=== PATIENT | male | born 1930 | race Caucasian/White ===

== ENCOUNTER 2016-04-21 14:23 | Inpatient (IN) | payer OTHER ==
--- NOTE | 2016-04-21 14:19 | EDPHY ---
H & P Time Seen by Provider: 04/21/16 14:27 HPI/ROS: CHIEF COMPLAINT: Weakness HISTORY OF PRESENT ILLNESS: Patient arrives by EMS with tachycardia and fever and weakness. Symptoms present for the last 4 days and severe today. He was in bed all day today and he could not get up. He has no other complaints except for some mild dizziness and lightheadedness. Denies leg pain or skin rash or fever or chest pain or coughing or headache. REVIEW OF SYSTEMS: Eye: no change in vision ENT: no sore throat Cardiac: no chest pain or syncope Pulmonary: no cough or SOB Abdomen: no vomiting, diarrhea, abdominal pain Musculoskeletal: no back pain or neck pain Skin: no rash Neuro: no headache Constitutional: no fever : no urinary symptoms A comprehensive 10 point review of systems is otherwise negative aside from elements mentioned in the history of present illness. PAST MEDICAL HISTORY: History and physical dated 12/27/2015 personally reviewed by myself. Includes pneumonia, atrial fibrillation, diabetes, bladder cancer, hypertension. Kidney stones, prostate cancer. Social history: Nonsmoker, lives independently. General Appearance: Alert and conversant, cooperative. Eyes: No scleral icterus. ENT, Mouth: Normal mucous membranes. Respiratory: Rhonchi at both bases but speaks in full sentences. Cardiovascular: Irregularly irregular and tachycardic. Gastrointestinal: Abdomen is soft and non tender. Neurological: Alert and oriented x3. Normally conversant. Face symmetric, normal movement and sensation in all extremities. Skin: Patient has redness warmth and tenderness to palpation of the right lower leg from the knee down to the ankle. He has a grade 1 sacral decubitus without evidence of cellulitis or fluctuance or lymphangitis. Musculoskeletal: Some swelling and tenderness of the right lower extremity. Compartments are soft. Psychiatric: Not agitated. Emergency Department course/MDM: Patient presents tachycardic with temperature 37.6degrees but a history of fever at home to 102 or 103 concerning for sepsis. Chest x-ray reviewed is negative. White blood cell count less than 12,000 and greater than 4000. Lactate less than 2. Does not have a fever in the emergency department. However he is tachycardic from atrial fibrillation. Plan for normal saline IV 2 L, vancomycin 1 g IV and ultrasound of the right leg. Likely source would be right leg cellulitis at this time. 1540: Discussed with family. He says he is 179 lb or 80 kilos. 3 L IV normal saline bolus ordered and 2nd lactate. Call is placed to Dr. Ramos his primary care physician. Will try giving IV fluids 1st for bringing down his rate, if that does not work rate control can be tried after he becomes euvolemic. Constitutional: Initial Vital Signs Temperature (C) 37.6 C 04/21/16 14:51 Heart Rate 139 H 04/21/16 14:51 Respiratory Rate 20 04/21/16 14:51 Blood Pressure 112/72 04/21/16 14:51 O2 Sat (%) 91 L 04/21/16 14:51 O2 Delivery Mode Room Air Allergies/Adverse Reactions: No Allergies [NKDA] Allergy (Verified 02/14/15 13:30) Home Medications: Medication Instructions Recorded Allopurinol [Allopurinol 300 MG 300 mg PO DAILY 02/14/15 (RX)] Cholecalciferol Vit D3 [Vitamin D3 5,000 units PO BID 02/14/15 (*)] Niacin ER [Niaspan 1000 mg (*)] 1,000 mg PO HS 02/14/15 Hubbard-3 Ethyl Est-Lovaza [Lovaza 1 2 gm PO BID 02/14/15 gm (*)] Pioglitazone HCl [Actos 15mg (*)] 15 mg PO DAILY 02/14/15 metFORMIN HCL [Glucophage 500 mg 500 mg PO BIDMEAL 02/14/15 (*)] Insulin Detemir [Levemir Flextouch] 40 unit SQ DAILY 02/15/15 Herbals/Supplements -Info Only 1 ea PO DAILY 06/21/15 Aspirin EC [Aspirin EC 81 mg (*)] 81 mg PO HS 04/21/16 Metoprolol Tartrate [Lopressor 25 25 mg PO BID 04/21/16 mg (*)] Rivaroxaban [Xarelto 15mg (*)] 15 mg PO HS 04/21/16 Vit C/Dl-E AC/Lut/Copper/Znox 1 each PO BID 04/21/16 [Preservision Softgel] Medical Decision Making - Diagnostics EKG Interpretation: 12-lead EKG interpreted by me; official reading is in trace master. My interpretation is atrial fibrillation rate 139, nonspecific T-wave flattening. Imaging: Chest x-ray viewed independently by myself at 3:00 p.m. shows no pneumonia. Ultrasound right leg negative for DVT per Dr. Dietz, reviewed by myself personally at 3:44 p.m. Differential Diagnosis: Differential for fever and weakness considered including but not limited to sepsis, pneumonia, a UTI, cellulitis. Consult/Admit Bed Type: Dr. Puentes for [place] [id number] - Data Points Laboratory Results: Laboratory Results 04/21/16 14:49 04/21/16 14:49 04/21/16 04/21/16 14:49 11:45 WBC 10.61 H 10^3/uL (3.80-9.50) RBC 5.15 10^6/uL (4.40-6.38) Hgb 15.8 g/dL (13.7-17.5) Hct 44.2 % (40.0-51.0) MCV 85.8 fL (81.5-99.8) MCH 30.7 pg (27.9-34.1) MCHC 35.7 g/dL (32.4-36.7) RDW 14.1 % (11.5-15.2) Plt Count 212 10^3/uL (150-400) MPV 10.1 fL (8.7-11.7) Neut % (Auto) 81.6 H % (39.3-74.2) Lymph % (Auto) 10.9 L % (15.0-45.0) White % (Auto) 6.5 % (4.5-13.0) Eos % (Auto) 0.0 L % (0.6-7.6) Baso % (Auto) 0.4 % (0.3-1.7) Nucleat RBC Rel Count 0.0 % (0.0-0.2) Absolute Neuts (auto) 8.66 H 10^3/uL (1.70-6.50) Absolute Lymphs (auto) 1.16 10^3/uL (1.00-3.00) Absolute Monos (auto) 0.69 10^3/uL (0.30-0.80) Absolute Eos (auto) 0.00 L 10^3/uL (0.03-0.40) Absolute Basos (auto) 0.04 10^3/uL (0.02-0.10) Absolute Nucleated RBC 0.00 10^3/uL (0-0.01) Immature Gran % 0.6 % (0.0-1.1) Immature Gran # 0.06 10^3/uL (0.00-0.10) PT 16.7 H SEC (12.0-15.0) INR 1.35 H (0.83-1.16) APTT 33.2 SEC (23.0-38.0) VBG Lactic Acid 1.6 mmol/L (0.7-2.1) Sodium 130 L mEq/L (134-144) Potassium 4.2 mEq/L (3.5-5.2) Chloride 97 mEq/L (97-110) Carbon Dioxide 22 mEq/l (22-31) Anion Gap 11 mEq/L (8-16) BUN 20 mg/dL (7-23) Creatinine 0.7 mg/dL (0.7-1.3) Estimated GFR > 60 Glucose 198 H mg/dL (70-100) Calcium 9.6 mg/dL (8.5-10.4) Total Bilirubin 0.9 mg/dL (0.1-1.4) Medications Given: Discontinued Medications Vancomycin/Sodium Chloride (Vancomycin 1 Gm (Premix)) 250 mls @ 250 mls/hr IV EDNOW ONE PRN Reason: Protocol Stop: 04/21/16 16:33 Last Admin: 04/21/16 16:26 Dose: 250 mls Sodium Chloride (Ns) 1,000 mls @ 0 mls/hr IV ONCE ONE PRN Reason: Wide Open Stop: 04/21/16 15:36 Last Admin: 04/21/16 16:20 Dose: 1,000 mls Sodium Chloride (Ns) 1,000 mls @ 0 mls/hr IV ONCE ONE PRN Reason: Wide Open Stop: 04/21/16 15:36 Last Admin: 04/21/16 16:20 Dose: 1,000 mls Sodium Chloride (Ns) 1,000 mls @ 0 mls/hr IV ONCE ONE PRN Reason: Wide Open Stop: 04/21/16 15:40 Last Admin: 04/21/16 16:21 Dose: 1,000 mls Departure - Departure Disposition: [facility] Acute Clinical Impression: Cellulitis of right leg, Atrial fibrillation and flutter Condition: Serious
[2016-04-21 14:56] LABS: % IMMATURE GRANULYOCYTES 0.6 % (0.0-1.1); ABSOLUTE IMMATURE GRANULOCYTES 0.06 10^3/uL (0.00-0.10); ADD DIFF? NO; ADD MORPH? NO; ADD SCAN? NO; ATYPICAL LYMPHOCYTE FLAG 0 (0-99); FRAGMENT RBC FLAG 0 (0-99); HEMATOCRIT 44.2 % (40.0-51.0); HEMOGLOBIN 15.8 g/dL (13.7-17.5); LEFT SHIFT FLG 0 (0-99); LIPEMIA HEMOLYSIS FLAG 90 (0-99); MEAN CELL HEMOGLOBIN 30.7 pg (27.9-34.1); MEAN CELL HEMOGLOBIN CONCENTR. 35.7 g/dL (32.4-36.7); MEAN CELL VOLUME 85.8 fL (81.5-99.8); MEAN PLATELET VOLUME 10.1 fL (8.7-11.7); PLATELET CLUMPS FLAG 0 (0-99); PLATELET COUNT 212 10^3/uL (150-400); RED BLOOD CELL COUNT 5.15 10^6/uL (4.40-6.38); RED CELL DISTRIBUTION WIDTH 14.1 % (11.5-15.2)
[2016-04-21 15:05] LABS: INR 1.35 (0.83-1.16); PROTIME(PATIENT) 16.7 SEC (12.0-15.0)
[2016-04-21 15:06] LABS: APTT 33.2 SEC (23.0-38.0)
--- NOTE | 2016-04-21 15:25 | CPEKG ---
Heart Rate: 139 RR Interval: 432 QRSD Interval: 90 QT Interval: 336 QTC Interval: 511 QRS Colstrip: 76 T Wave Colstrip: -33 EKG Severity - ABNORMAL ECG - EKG Impression: ATRIAL FIBRILLATION EKG Impression: BORDERLINE INFERIOR Q WAVES EKG Impression: BORDERLINE T ABNORMALITIES, INFERIOR LEADS EKG Impression: PROLONGED QT INTERVAL Electronically Signed By: Howie Rios 21-Apr-2016 15:41:00
[2016-04-21 15:28] LABS: ANION GAP 11 mEq/L (8-16); BILIRUBIN,TOTAL 0.9 mg/dL (0.1-1.4); CALCIUM 9.6 mg/dL (8.5-10.4); CARBON DIOXIDE 22 mEq/l (22-31); CHLORIDE 97 mEq/L (97-110); CREATININE 0.7 mg/dL (0.7-1.3); GLOMERULAR FILTRATION RATE > 60; GLUCOSE 198 mg/dL (70-100); POTASSIUM 4.2 mEq/L (3.5-5.2); SODIUM 130 mEq/L (134-144)
[2016-04-21] MEDS ORDERED: VANCOMYCIN HCL/NORMAL SALINE 250 ML IV ONE (15:34)
[2016-04-21] MEDS ORDERED: NS 1,000 ML IV ONE ×3 (15:35→15:39)
--- NOTE | 2016-04-21 15:41 | DX ---
PA and Lateral Chest 14:26 p.m. Indication: Weakness for several days. Patient meets sepsis criteria. Comparison: 2 view chest dated December 29, 2015 Findings: Mild hyperinflation and diffuse peribronchial thickening is improved since December 2015. No superimposed airspace consolidation, edema, mass, or effusion. The heart size is borderline enlarged similar to the prior study. Impression: Clear lungs. No pneumonia or acute process.
--- NOTE | 2016-04-21 15:45 | US ---
Right Lower Extremity Deep Venous Duplex Ultrasound 14:57 p.m. Indication: Right leg pain and swelling Technique: The right lower extremity deep venous system and veins of the proximal calf were interroga laurent with grayscale, color, and spectral Doppler imaging. Findings: The common femoral, femoral, popliteal, greater saphenous and posterior tibial and peroneal veins of the calf normally compress on grayscale imaging. The deep venous system and superficial vei ns of the proximal calf have normal flow and expected variability. No fluid collection Impression: Negative. No deep venous thrombosis. Comment: I relayed these results to to Dr. Howie Rios at 15:45 p.m. April 21, 2016.
--- NOTE | 2016-04-21 18:08 | SOAPPROG ---
SOAP Progress Note Assessment/Plan: Assessment: Plan: 04/21/16 18:13 Cellulitis: suspect he does have an early cellulitis in the upper groin. He has received one dose vancomycin. Given hx of fever, chills, will continue this for now. Atrial fibrillation with RVR: has hx of becoming tachycardic when ill. He is regularly on metoprolol 25mg bid at home, but rate is not currently controlled. He has seen Dr. Michael in the past, so will have cardiology consult. For now, will increase metoprolol to 50mg bid and monitor closely. He is currently anticoagulated with Xarelto. His weakness is his primary symptom. DM2: on metformin, actos, levemir, so will continue these. CAD: stable, asymptomatic Hx recurrent UTI: awaiting UA. Most recent UA earlier this month was negative. Pt states he doesn't usually have dysuria. Hx E. coli, Enterococcus in previous cultures. 04/21/16 18:33 Subjective: 86 yo male with hx multiple medical problems including DM, intermittent atrial fib/flutter, CAD, recurrent UTIs has felt intermittently poorly over the last few days. Today, he was not able to get out of bed due to weakness, and was noted at home to have temp to 102-103. Has had chills intermittently as well. A couple of days ago, he noted some discomfort in his upper R thigh and some mild redness. Due to weakness, he was brought to the ER by ambulance. In the ED, CXR was normal. He was noted to be in rapid atrial fibrillation, with a rate in the 130s-140s. O2 saturations good, and he was afebrile. WBC was mildly elevated with L shift. RLE doppler negative for DVT. He was given vancomycin 1g IV for presumed cellulitis. Currently he is comfortable, without SOB, but is weak, needing assistance simply to reposition himself in bed. Objective: Vital Signs Temp Pulse Resp BP Pulse Ox 37.8 C 127 H 20 130/82 H 94 04/21/16 17:00 04/21/16 17:06 04/21/16 17:06 04/21/16 17:06 04/21/16 17:06 04/20/16 04/21/16 04/22/16 05:59 05:59 05:59 Intake Total 3650 Balance 3650 PT 16.7 SEC (12.0-15.0) H 04/21/16 14:49 INR 1.35 (0.83-1.16) H 04/21/16 14:49 General: awake, alert, NAD. Well-appearing. HEENT: NC/AT. Multiple painless scabbed lesions on forehead. O/P without lesions. Neck: no masses, adenopathy Lungs: clear bilaterally Cardiovascular: irregularly irregular, tachycardic Abdomen: +bowel sounds, soft, NT. No hepatosplenomegaly, masses Extremities: no clubbing, cyanosis, edema. RLE with mild erythema below the knee , not new per patient. In R groin, there is mild erythema with slight warmth, but no edema, tenderness. Neurologic: alert, oriented, moving all extremities, normal speech, cognition ICD10 Worksheet Patient Problems: Problems Problem Status Diagnosed Atrial fibrillation and flutter Acute Cellulitis of right leg Acute Pneumonia Acute UTI (urinary tract infection) Acute Epididymitis Acute Orchitis Acute Pneumonia due to aerobic bacteria Acute
[2016-04-21] MEDS ORDERED: ACETAMINOPHEN 325 MG TAB PO PRN (18:52)
[2016-04-21] MEDS ORDERED: ONDANSETRON 4 MG/2 ML VIAL IVP PRN (18:52)
[2016-04-21] MEDS ORDERED: POLYETHYLENE GLYCOL 3350 17 GM PKT PO PRN (18:52)
[2016-04-21] MEDS ORDERED: ONDANSETRON DISINTEGRATING 4 MG TAB PO PRN (18:52)
[2016-04-21] MEDS ORDERED: MAGNESIUM HYDROXIDE 30 ML UDCUP PO PRN (18:52)
[2016-04-21] MEDS ORDERED: LACTULOSE 20 GM/30 ML UDCUP PO PRN (18:52)
[2016-04-21] MEDS ORDERED: BISACODYL 10 MG SUPP PR PRN (18:52)
--- NOTE | 2016-04-21 19:49 | GHP ---
[f rep st] HISTORY AND PHYSICAL DATE OF ADMISSION: 04/21/2016 HISTORY OF PRESENT ILLNESS: The patient is an 86-year-old male with a history of diabetes mellitus, coronary artery disease, intermittent atrial fibrillation/ flutter, on chronic anticoagulation, and recurrent UTI, who noted the onset of chills about 3-4 days ago. He spent that entire day in bed. Since then, his symptoms have fluctuated some, but about 2 days ago, he began to notice some discomfort in his upper right leg in the groin area. Last night he went out to dinner with his family, and his daughter noticed that he did not seem quite himself. Then today, he spent most of the day in bed feeling very weak and without any strength. At home, his temperature was noted to be 102 to 103. He had been hospitalized with pneumonia a few months previously, but has not had any significant cough or shortness of breath. He has not had any sore throat or head congestion. Appetite has been off, and he has lost about 10 pounds over the last 3 months. He has not had any abdominal pain, nausea, vomiting, diarrhea or constipation, and no dysuria. Due to weakness, he was brought to the emergency department via ambulance. In the emergency department, he was afebrile. His heart rate was elevated in the 130s-140s, with an EKG showing rapid atrial fibrillation. He had no chest pain just weakness. His white count was mildly elevated with a left shift. Chest x-ray was negative for pneumonia. Right lower extremity Doppler was negative for DVT. Urinalysis is pending. CMP normal except for Na 130 and glucose 198. Mild erythema of the right groin was noted on exam, and the patient was given vancomycin 1 g IV for presumed cellulitis. Blood cx are pending. He was also aggressively hydrated, and admitted for further evaluation. PAST MEDICAL HISTORY: Significant for type 2 diabetes, bladder cancer, osteoarthritis, kidney stones, melanoma, right lower extremity venous stasis, atrial fibrillation/flutter, coronary artery disease, with elevated coronary calcium, prostate cancer, small aortic aneurysm in the abdominal aorta, recurrent UTI, testicular hypofunction. MEDICATIONS: Xarelto 15 mg daily, Actos 15 mg daily, allopurinol 300 mg daily, aspirin 81 mg daily, Levemir FlexPen 100 units/mL 40 units in morning, Lovaza 1 g 2 capsules b.i.d., metformin 500 mg b.i.d., Niaspan 1000 mg daily, vitamin D 5000 international units daily, Welchol 3.75 g with water once daily, Tylenol p.r.n., Milk of Magnesia 400 mg/5 mL 4 times daily as needed, tramadol 50 mg q.6h as needed, testosterone 300mg IM q3 weeks. ALLERGIES: No known allergies. PAST SURGICAL HISTORY: Melanoma removal. SOCIAL HISTORY: The patient is with grown children. He is a former smoker. FAMILY HISTORY: His father from bladder cancer. His brother from melanoma. His mother from stomach cancer. PHYSICAL EXAMINATION: VITAL SIGNS: Blood pressure 130/82, heart rate 127, respiratory rate 20, O2 saturation 94% on room air. Temperature 37.8. GENERAL: He is awake, alert, in no acute distress. He is well appearing, pleasant, conversant. HEENT: Normocephalic, atraumatic. He has multiple painless scabbed lesions on his forehead. PERRL, EOMI. Sclerae anicteric. Oropharynx is without lesions. NECK: Without masses or adenopathy. LUNGS: Clear bilaterally. CARDIOVASCULAR: Irregularly irregular rhythm, tachycardic. ABDOMEN: Normal bowel sounds. Soft and nontender. No hepatosplenomegaly or masses. EXTREMITIES: No clubbing, cyanosis or edema. Right lower extremity with mild erythema below the knee, not new per patient. In the right groin, there is mild erythema with slight warmth, but no edema or tenderness. NEUROLOGIC: Alert and oriented. Moving all extremities. Normal speech and cognition. LABS: WBC 10.61, 81.6% neutrophils, hgb 15.8, hct 44.2, platelets 212. Na 130, K + 4.2, Cl 97, CO2 22, BUN 20, Creatinine 0.7, glucose 198, Ca 9.6, total bilirubin 0.9, PT 16.7, INR 1.35, PTT 33.2 ASSESSMENT AND PLAN: 1. Cellulitis. I suspect that he does have an early cellulitis in the upper right groin. He has received one dose of vancomycin. Given the history of fever and chills, we will continue this for now. Blood cultures pending. 2. Atrial fibrillation, with rapid ventricular rate. He has a history of becoming tachycardic when ill. He is regularly on metoprolol 25 mg b.i.d. at home, but his rate is not currently controlled. He has seen Dr. Michael in the past, so we will ask Cardiology to consult for now. We will increase his metoprolol to 50 mg b.i.d., and monitor closely. Historically, when he feels better, he does return to sinus rhythm. He is currently anticoagulated with Xarelto. He has no chest pain. Weakness is typically his primary symptom of atrial fibrillation. 3. Weakness: most likely related to rapid atrial fibrillation, but will have PT , OT see pt. 4. Diabetes mellitus. We will continue metformin, Actos and Levemir. 5. Coronary artery disease, stable, asymptomatic. 6. History of recurrent urinary tract infection. UA is currently pending. Will await result prior to adding further antibiotic coverage. His most recent UA earlier this month was negative. He does state, however, that he does not usually have dysuria when he has a urinary tract infection. He has a history of E. coli and Enterococcus with previous cultures. 7. Hyponatremia: mild. Has been aggressively hydrated. Will check lab in am 8. DVT prophylaxis: on Xarelto. /[id number]/MODL MTDD
[2016-04-21] MEDS: METOPROLOL TARTRATE 50 MG TAB PO SCH (20:03)
[2016-04-21] MEDS: PRESERVISION AREDS2 FORMULA EYE VIT 1 EACH PO SCH (20:03)
[2016-04-21] MEDS: OMEGA-3 ETHYL EST-LOVAZA 1 GM CAP PO SCH (20:04)
[2016-04-21] MEDS: CHOLECALCIFEROL VIT D3 1,000 UNITS TAB PO SCH (20:04)
[2016-04-21] MEDS: NIACIN ER 1000 MG TAB.ER PO SCH (20:05)
[2016-04-21] MEDS: SENNOSIDES/DOCUSATE SODIUM TAB PO SCH (20:05)
[2016-04-21] MEDS ORDERED: RIVAROXABAN 15 MG TAB PO SCH (21:00)
[2016-04-21] MEDS ORDERED: ASPIRIN EC 81 MG TAB PO SCH (21:00)
[2016-04-21] MEDS ORDERED: NON-FORMULARY NEW DRUG (Vit C/Dl-E Ac/Lut/Copper/Znox [Preservision Softgel] 1 EACH) PO SCH (21:00)
[2016-04-22] MEDS ORDERED: DILTIAZEM 125 MG in D5W 125 ML IV SCH (00:30)
[2016-04-22 00:57] LABS: COLOR AMBER; LEUKOCYTE ESTERASE,URINE 3+ (NEGATIVE); NITRITE,URINE NEGATIVE (NEGATIVE)
[2016-04-22 01:04] LABS: BACTERIA 3+ /hpf (NONE SEEN); MUCUS 2+ /lpf (NONE-1+); RBC,URINE 50-182 /hpf (0-3); WBC,URINE 50-182 /hpf (0-3); YEAST PRESENT /hpf (NONE SEEN)
[2016-04-22] MEDS ORDERED: VANCOMYCIN 1 GM in NS 250 ML IV SCH (04:00)
[2016-04-22 04:49] LABS: % IMMATURE GRANULYOCYTES 0.5 % (0.0-1.1); ABSOLUTE IMMATURE GRANULOCYTES 0.06 10^3/uL (0.00-0.10); ADD DIFF? NO; ADD MORPH? NO; ADD SCAN? NO; ATYPICAL LYMPHOCYTE FLAG 0 (0-99); FRAGMENT RBC FLAG 0 (0-99); HEMATOCRIT 37.7 % (40.0-51.0); HEMOGLOBIN 13.1 g/dL (13.7-17.5); LEFT SHIFT FLG 0 (0-99); LIPEMIA HEMOLYSIS FLAG 90 (0-99); MEAN CELL HEMOGLOBIN 30.3 pg (27.9-34.1); MEAN CELL HEMOGLOBIN CONCENTR. 34.7 g/dL (32.4-36.7); MEAN CELL VOLUME 87.3 fL (81.5-99.8); MEAN PLATELET VOLUME 10.2 fL (8.7-11.7); PLATELET CLUMPS FLAG 10 (0-99); PLATELET COUNT 167 10^3/uL (150-400); RED BLOOD CELL COUNT 4.32 10^6/uL (4.40-6.38); RED CELL DISTRIBUTION WIDTH 14.4 % (11.5-15.2)
[2016-04-22 04:54] LABS: ANION GAP 9 mEq/L (8-16); CALCIUM 8.5 mg/dL (8.5-10.4); CARBON DIOXIDE 21 mEq/l (22-31); CHLORIDE 102 mEq/L (97-110); CREATININE 0.6 mg/dL (0.7-1.3); GLOMERULAR FILTRATION RATE > 60; GLUCOSE 200 mg/dL (70-100); POTASSIUM 3.5 mEq/L (3.5-5.2); SODIUM 132 mEq/L (134-144)
[2016-04-22] MEDS: metFORMIN HCL 500 MG TAB PO SCH ×2 (08:58→18:39)
[2016-04-22] MEDS: SENNOSIDES/DOCUSATE SODIUM TAB PO SCH ×2 (08:58→20:39)
[2016-04-22] MEDS: PRESERVISION AREDS2 FORMULA EYE VIT 1 EACH PO SCH ×2 (08:58→20:37)
[2016-04-22] MEDS: OMEGA-3 ETHYL EST-LOVAZA 1 GM CAP PO SCH ×2 (08:58→20:36)
[2016-04-22] MEDS: CHOLECALCIFEROL VIT D3 1,000 UNITS TAB PO SCH ×2 (08:58→20:38)
[2016-04-22] MEDS: METOPROLOL TARTRATE 50 MG TAB PO SCH ×2 (08:58→20:38)
[2016-04-22] MEDS: PIOGLITAZONE HCL 15 MG TAB PO SCH (08:59)
[2016-04-22] MEDS: ALLOPURINOL 300 MG TAB PO SCH (08:59)
[2016-04-22] MEDS ORDERED: Herbals/Supplements -Info Only PO SCH (09:00)
[2016-04-22] MEDS ORDERED: NON-FORMULARY NEW DRUG (Insulin Detemir [Levemir Flextouch] 40 UNIT) SQ SCH (09:00)
[2016-04-22] MEDS: Levemir Flextouch SQ SCH (11:28)
--- NOTE | 2016-04-22 12:07 | SOAPPROG ---
[facility] Progress Note Assessment/Plan: Assessment: Plan: 04/21/16 18:13 Cellulitis: suspect he does have an early cellulitis in the upper groin. He has received one dose vancomycin. Given hx of fever, chills, will continue this for now. Atrial fibrillation with RVR: has hx of becoming tachycardic when ill. He is regularly on metoprolol 25mg bid at home, but rate is not currently controlled. He has seen Dr. Michael in the past, so will have cardiology consult. For now, will increase metoprolol to 50mg bid and monitor closely. He is currently anticoagulated with Xarelto. His weakness is his primary symptom. DM2: on metformin, actos, levemir, so will continue these. CAD: stable, asymptomatic Hx recurrent UTI: awaiting UA. Most recent UA earlier this month was negative. Pt states he doesn't usually have dysuria. Hx E. coli, Enterococcus in previous cultures. 04/21/16 18:33 04/22/16 12:10 Cellulitis: not much change. WBC up, but this could be related to UTI. Will change antibx to include coverage for UTI. Blood cx pending. Atrial fibrillation with RVR: Rate now controlled. BP a little low this am, but is weaning off diltiazem. Will see how he does on metoprolol 50mg bid. Hopefully he will convert to sinus on his own. UTI: UA positive, and may be the primary source of infection, more so than skin. No further fever, but faint chill last night. Will switch to Unasyn, given hx of E. coli and Enterococcus in urine, and cellulitis. Urine cx pending. DVT prophylaxis: on Xarelto Hyponatremia: some improvement this morning 04/22/16 12:11 04/22/16 12:19 Subjective: Feeling better this morning. Placed on diltiazem gtt last night after not responding to metoprolol 50mg orally. Rate is now controlled but he remains in atrial fibrillation. Strength improved. Appreciate cardiology input. Still notes some discomfort in his upper R leg, mainly if he crosses his legs. He hasn 't noted much change in redness. UA obtained last night and urine doesn't look great. Note that his WBC is up today. No further fevers, though did feel a small chill last night. Objective: Vital Signs Temp Pulse Resp BP Pulse Ox 36.6 C 73 18 116/72 93 04/22/16 11:38 04/22/16 11:38 04/22/16 11:38 04/22/16 11:38 04/22/16 11:38 Laboratory Results 04/22/16 03:45 04/22/16 03:45 04/21/16 04/22/16 04/23/16 05:59 05:59 05:59 Intake Total 7250 Balance 7250 PT 16.7 SEC (12.0-15.0) H 04/21/16 14:49 INR 1.35 (0.83-1.16) H 04/21/16 14:49 General: sitting up in chair, alert, NAD Neck: no masses, adenopathy Lungs: clear CV: irregularly irregular, rate controlled, no murmur Abdomen: soft, NT Extremities: mild LE edema. Skin: erythema of upper R thigh remains mild. No significant change. No tenderness, edema. ICD10 Worksheet Patient Problems: Problems Problem Status Diagnosed Atrial fibrillation and flutter Acute Cellulitis of right leg Acute Pneumonia Acute UTI (urinary tract infection) Acute Epididymitis Acute Orchitis Acute Pneumonia due to aerobic bacteria Acute
--- NOTE | 2016-04-22 12:20 | GCON ---
[f rep st] CONSULTATION CARDIOLOGY CONSULTATION DATE OF CONSULTATION: 04/22/2016 REFERRING PHYSICIAN: Rossy Puentes MD INDICATIONS: Paroxysmal atrial fibrillation. HISTORY OF PRESENT ILLNESS: The patient is a pleasant 86-year-old male, who is known to our service from previous admissions. His cardiovascular history is characterized by nonobstructive coronary art kaykay disease. Apparently in the past, he had been seen by Dr. Michael. At 1 point, the patient recal ls having had a cardiac catheterization. He was told that everything was "okay" and that he did not require placement of any stents. Additionally, he has a history of paroxysmal atrial fibrillation an d flutter, and has had several admissions in the past with these arrhythmias, typically associated wi th some form of systemic illness, most recently pneumonia during a hospitalization December of 2015. Per my review of the records, he has not required a cardioversion in the past. Typically, he reverts to sinus rhythm spontaneously. As an outpatient, he has been managed with metoprolol tartrate 25 mg twice daily, as well as Xarelto 15 mg daily. Additionally, he has a history of diabetes. He is admitted through the emergency department after arriving by ambulance. He states for the last 2-3 days, he has felt "sick" associated with a sensation of chills and rigors at home. This has been accompanied by severe fatigue. He has spent the last several days in bed and has been extraordinari ly weak. He specifically denies significant headache, cough, sputum production, abdominal pain, diar suzanna, nausea, vomiting, and flank pain. He also notes no dysuria. He does have a history of frequen t urinary tract infections in the past. On arrival to the emergency department here, he was hemodyna mically stable however, had an elevated heart rate at 139 beats per minute. His initial electrocardi ogram demonstrated atrial fibrillation with a rapid ventricular response with a resting heart rate of 139, and nonspecific ST and T changes. It was thought on physical examination that he might have a cellulitis in his right thigh therefore, he was treated with vancomycin and given aggressive hydratio n. Overnight, his heart rate was controlled with an increase in his dose of metoprolol, as well as t he addition of low-dose of diltiazem. Today, he states he feels much better. He feels stronger. He has not had any further sensations of rigors. On telemetry, his heart rate has improved substantial ly. Currently, his resting heart rate in atrial fibrillation is in the 90s. PAST MEDICAL HISTORY: 1. Type 2 diabetes mellitus. 2. History of bladder cancer. 3. Osteoarthritis. 4. Kidney stones. 5. History of melanoma of the head and neck with multiple previous Mohs surgeries. 6. History of right lower extremity venous stasis. 7. PAF/flutter. 8. History of nonobstructive coronary disease. 9. History of prostate cancer. 10. Small abdominal aortic aneurysm. 11. Recurrent urinary tract infections. 12. Testicular hypofunction. MEDICATIONS ON ADMISSION: His home medications include herbal supplements, multivitamins, Xarelto 15 mg with evening meal, metoprolol tartrate 25 mg twice daily, low-dose aspirin 81 mg daily, allopurin ol 300 mg daily, Levemir FlexTouch 40 units subcu daily, vitamin D3 at 5000 units b.i.d., Actos 50 mg daily, [place]-3 fatty acids 2 g twice daily, extended-release niacin 1000 mg before bed, metformin 50 0 mg p.o. b.i.d. ALLERGIES: None. SURGICAL HISTORY: Multiple scalp Mohs surgeries. SOCIAL HISTORY: He is and accompanied by his . They have grown children. His daughter is with him today. He is a retired banker. He used to smoke. He has 1 drink daily. He and his wif e live independently. He does not exercise regularly. FAMILY HISTORY: Negative for vascular disease and arrhythmias. REVIEW OF SYSTEMS: With the exception of the above positives, a full 10-point review of systems was performed and is otherwise negative. PHYSICAL EXAMINATION: VITAL SIGNS: Currently, his blood pressure is 99/55, his heart rate is 98, re spiratory rate is 19, oxygen saturations on room air are 93%. GENERAL: He is a healthy 86-year-old male, in no acute distress. HEENT: Multiple eschars are noted on his scalp. NECK: He has no jugul ar venous distention. No carotid bruits. No adenopathy is noted. RESPIRATORY: He speaks in full s entences, using no accessary muscles. On auscultation, he has clear lung anna bilaterally. CARDIA C: Precordial inspection is unremarkable. Nondisplaced PMI. On auscultation, he has an irregularly irregular rhythm. He has no murmurs, gallops, or rubs. ABDOMEN: Soft with no masses or hepatosple nomegaly. He has a nonpalpable aorta. EXTREMITIES: He has warm and well perfused lower extremities. He has trace edema in his right lower extremity. There is a small area of erythema and warmth by h is right groin involving the right thigh. VASCULATURE: He has 2+ radial and dorsal pedal pulses. N EUROLOGIC: He is alert and oriented, moves all 4 limbs spontaneously. He has a pleasant affect. DATA REVIEWED: His electrocardiogram demonstrates atrial fibrillation at 139 beats per minute with n onspecific ST and T changes. Chest x-ray was normal. White blood cell count today is 13.01 up from 10.61 yesterday, hematocrit 37.7, platelet count 167,000. Sodium 132, potassium 3.5, chloride 102, b icarbonate 21, BUN 26, creatinine 0.6, glucose 800. Calcium 8.5. INR 1.35. Urinalysis is positive f or red blood cells and white blood cells described as turbid with positive leukocyte esterase. Urine culture currently pending. Blood cultures are pending. Lower extremity ultrasound was negative for DVT. IMPRESSION: 1. Probable bacteremia: He presents with symptoms of chills and rigors over the last several days. This is associated with objective findings of leukocytosis and an abnormal urinalysis. Additionally , he has an area of erythema in his proximal right thigh, which could be an area of cellulitis. He h ad been treated with vancomycin last night and has shown improvement. Urine cultures and blood cultu res are currently pending. 2. History of paroxysmal atrial fibrillation: He presents now with a recurrence associated with rap id ventricular response. He is asymptomatic. Because of his age, diabetes, and coronary disease, tim sykes has an elevated [id number] score of at least 3, probably 4. As such, he is currently receiving s ystemic anticoagulation with Xarelto. His creatinine clearance is certainly high enough that a full- dose of Xarelto 20 mg daily would be indicated. He has not had any significant bleeding with this me dication. His heart rates have improved with an increase in his metoprolol dose. He is currently on low-dose diltiazem. 3. Coronary artery disease: History of nonobstructive coronary artery disease. This currently quie scent. 4. Possible cellulitis in his right thigh. 5. Possible urinary tract infection. 6. Type 2 diabetes mellitus. 7. Hyponatremia. RECOMMENDATIONS: 1. I would like to wean his diltiazem. I would like to however, continue his metoprolol for heart r ate control. In light of his systemic illness, I think we should allow a little bit of tachycardia. Certainly, heart rates up into the low 1-teens and 120s are acceptable in this setting. 2. I would like to stop his Xarelto. Instead, I would like him to take apixaban 5 mg twice daily. I think this has a more favorable bleeding profile. He is in agreement. I wrote for this to start t his evening. 3. I have written to stop his aspirin. I do not think this is indicated at the present time. 4. I spoke with Dr. Puentes regarding my plans. She is in the process of managing his infectious and other medical problems. Will follow along with you. /[id number]/MODL
[2016-04-22] MEDS: AMPICILLIN/SULBACTAM 1.5 GM in NS 50 ML IV SCH ×3 (14:59→23:41)
[2016-04-22] MEDS: NIACIN ER 1000 MG TAB.ER PO SCH (20:37)
[2016-04-22] MEDS: APIXABAN 5 MG TAB PO SCH (20:38)
[2016-04-22 22:52] LABS: HEMOGLOBIN A1C 9.6 % (4.0-6.0)
[2016-04-23 05:25] LABS: % IMMATURE GRANULYOCYTES 0.5 % (0.0-1.1); ABSOLUTE IMMATURE GRANULOCYTES 0.07 10^3/uL (0.00-0.10); ADD DIFF? NO; ADD MORPH? NO; ADD SCAN? NO; ATYPICAL LYMPHOCYTE FLAG 0 (0-99); FRAGMENT RBC FLAG 0 (0-99); HEMOGLOBIN 14.2 g/dL (13.7-17.5); LEFT SHIFT FLG 0 (0-99); LIPEMIA HEMOLYSIS FLAG 90 (0-99); MEAN CELL HEMOGLOBIN 30.6 pg (27.9-34.1); MEAN CELL HEMOGLOBIN CONCENTR. 35.5 g/dL (32.4-36.7); MEAN CELL VOLUME 86.2 fL (81.5-99.8); MEAN PLATELET VOLUME 9.9 fL (8.7-11.7); PLATELET CLUMPS FLAG 0 (0-99); PLATELET COUNT 184 10^3/uL (150-400); RED BLOOD CELL COUNT 4.64 10^6/uL (4.40-6.38); RED CELL DISTRIBUTION WIDTH 14.3 % (11.5-15.2)
[2016-04-23] MEDS: AMPICILLIN/SULBACTAM 1.5 GM in NS 50 ML IV SCH ×4 (05:42→23:24)
[2016-04-23 05:53] LABS: ANION GAP 7 mEq/L (8-16); CALCIUM 9.3 mg/dL (8.5-10.4); CARBON DIOXIDE 23 mEq/l (22-31); CHLORIDE 106 mEq/L (97-110); CREATININE 0.6 mg/dL (0.7-1.3); GLOMERULAR FILTRATION RATE > 60; GLUCOSE 60 mg/dL (70-100); POTASSIUM 3.4 mEq/L (3.5-5.2); SODIUM 136 mEq/L (134-144)
--- NOTE | 2016-04-23 08:54 | CPEKG ---
Heart Rate: 131 RR Interval: 458 QRSD Interval: 88 QT Interval: 328 QTC Interval: 485 QRS [place]: 75 T Wave [place]: 12 EKG Severity - ABNORMAL ECG - EKG Impression: ATRIAL FIBRILLATION, V-RATE 107-156 EKG Impression: ST DEPRESSION, PROBABLY RATE RELATED EKG Impression: BORDERLINE PROLONGED QT INTERVAL Electronically Signed By: Lio Craven 23-Apr-2016 10:44:02
--- NOTE | 2016-04-23 08:54 | SOAPPROG ---
SOAP Progress Note Assessment/Plan: Assessment: UTI. A-fib with rapid vent response. Cardiology consult in place. Plan: Add cipro for broader coverage until sensitivities are available. Defer to cardiology for rhythm management. 04/23/16 08:53 Subjective: Feeling some better. Still weak. Objective: Vital Signs Temp Pulse Resp BP Pulse Ox 36.5 C 107 H 17 109/86 H 96 04/23/16 07:57 04/23/16 07:57 04/23/16 07:57 04/23/16 07:57 04/23/16 07:57 Laboratory Results 04/23/16 04:24 04/23/16 04:24 04/22/16 04/23/16 04/24/16 05:59 05:59 05:59 Intake Total 7250 500 120 Balance 7250 500 120 PT 16.7 SEC (12.0-15.0) H 04/21/16 14:49 INR 1.35 (0.83-1.16) H 04/21/16 14:49 Went back into a-fib with rapid vent response last night. Lugs clear COR Rapid rhythm. a-fib. No significant edema. WBC still elevated. ICD10 Worksheet Patient Problems: Problems Problem Status Diagnosed Atrial fibrillation and flutter Acute Cellulitis of right leg Acute Pneumonia Acute UTI (urinary tract infection) Acute Epididymitis Acute Orchitis Acute Pneumonia due to aerobic bacteria Acute
[2016-04-23] MEDS ORDERED: AMOXICILLIN/CLAVULANATE POT 875/125 MG TAB PO SCH (09:00)
[2016-04-23] MEDS: PIOGLITAZONE HCL 15 MG TAB PO SCH (09:46)
[2016-04-23] MEDS: PRESERVISION AREDS2 FORMULA EYE VIT 1 EACH PO SCH ×2 (09:46→20:17)
[2016-04-23] MEDS: CHOLECALCIFEROL VIT D3 1,000 UNITS TAB PO SCH ×2 (09:46→20:12)
[2016-04-23] MEDS: metFORMIN HCL 500 MG TAB PO SCH ×2 (09:47→17:37)
[2016-04-23] MEDS: APIXABAN 5 MG TAB PO SCH ×2 (09:47→20:22)
[2016-04-23] MEDS: OMEGA-3 ETHYL EST-LOVAZA 1 GM CAP PO SCH ×2 (09:47→20:16)
[2016-04-23] MEDS: METOPROLOL TARTRATE 50 MG TAB PO SCH ×2 (09:47→20:16)
[2016-04-23] MEDS: Levemir Flextouch SQ SCH (09:48)
[2016-04-23] MEDS: ALLOPURINOL 300 MG TAB PO SCH (09:48)
[2016-04-23] MEDS: SENNOSIDES/DOCUSATE SODIUM TAB PO SCH ×2 (09:53→20:12)
[2016-04-23] MEDS: CIPROFLOXACIN 500 MG TAB PO SCH ×2 (11:57→20:16)
--- NOTE | 2016-04-23 12:06 | PDCARPN ---
Cardiology Progress Note Chief Complaint: N\A Assessment/Plan: Assessment: Pt has a history of nonobstructive CAD per patient and PAF/PAFL. His arrhythmias typically occur in the setting of another illness and he typically converts spontaneously. He was admitted with fatigue, chills, and rigors and was found to have a UTI. He was also in atrial fibrillation with RVR. His Metoprolol was increased and he was started on a dilt drip. The dilt was d/c yesterday but he has remained on a increased dose of Metoprolol. Plan: 1. a.fib with RVR in the setting of UTI and possible bacteremia. He is currently asymptomatic and being treated with rate control and anticoagulation. His rates were elevated this morning but improved after his AM dose of Metoprolol which was given at 10AM today. His heart rate is currently running 90-110. Continue Metoprolol 50 BID and Eliquis 5 BID. He is hypokalemic and will replace his potassium. IF he does not convert on his own consider WILBERT CV. He was on low dose Xarelto on admission and therefore would need a WILBERT with the CV. 2. RLE edema- Possible cellulitis of the right groin. I doubt a PE given he was on Xarelto prior to admission. 04/23/16 12:06 Subjective: Pt denies any further chills or fatigue. He denies any palpitations, presyncope or syncope. Objective: Vital Signs (8 Hrs) Temp Pulse Resp BP Pulse Ox 04/23/16 11:07 36.5 C 101 H 17 125/71 H 91 L 04/23/16 07:57 36.5 C 107 H 17 109/86 H 96 04/23/16 04:00 36.6 C 110 H 18 145/90 H 98 Intake/Output (24 Hrs) 04/22/16 04/23/16 04/24/16 05:59 05:59 05:59 Intake Total 7250 500 570 Balance 7250 500 570 Intake: Oral (ml) 750 500 570 IV Infused (ml) 6500 Vancomycin HCl/Normal 250 Saline 250 ml @ 250 mls/ hr IV EDNOW ONE Rx#: [id number] Ns 1,000 ml @ Wide Open 3000 IV ONCE ONE Rx#: [id number] Other: Weight 81.193 kg Intake Quantity Yes Yes Sufficient Number of Voids Incontinence 2 3 2 Number of Stools Incontinence 1 tele- a.fib rate controlled. Result Diagrams: 04/23/16 04:24 04/23/16 04:24 - Physical Exam Constitutional: WDWN Cardiovascular: irregularly irregular, other (edema of RLE) Peripheral Pulses: 2+: dorsalis-pedis (R), dorsalis-pedis (L) Respiratory: clear to auscultate bilat ICD10 Worksheet Patient Problems: Problems Problem Status Diagnosed Atrial fibrillation and flutter Acute Cellulitis of right leg Acute Pneumonia Acute UTI (urinary tract infection) Acute Epididymitis Acute Orchitis Acute Pneumonia due to aerobic bacteria Acute
[2016-04-23] MEDS ORDERED: PROTOCOL POTASSIUM 1 DOSE MISC PRN (12:50)
[2016-04-23] MEDS ORDERED: POTASSIUM CL 10 MEQ TAB PO ONE (13:13)
[2016-04-23 19:44] LABS: POTASSIUM 3.3 mEq/L (3.5-5.2)
[2016-04-23] MEDS: NIACIN ER 1000 MG TAB.ER PO SCH (20:12)
[2016-04-24] MEDS ORDERED: POTASSIUM CL 10 MEQ TAB PO ONE ×3 (01:12→21:41)
[2016-04-24 05:50] LABS: POTASSIUM 3.8 mEq/L (3.5-5.2)
[2016-04-24] MEDS: AMPICILLIN/SULBACTAM 1.5 GM in NS 50 ML IV SCH ×2 (05:57→13:00)
[2016-04-24] MEDS: CHOLECALCIFEROL VIT D3 1,000 UNITS TAB PO SCH ×2 (09:03→21:55)
[2016-04-24] MEDS: PIOGLITAZONE HCL 15 MG TAB PO SCH (09:03)
[2016-04-24] MEDS: OMEGA-3 ETHYL EST-LOVAZA 1 GM CAP PO SCH ×2 (09:04→21:36)
[2016-04-24] MEDS: APIXABAN 5 MG TAB PO SCH ×2 (09:04→21:38)
[2016-04-24] MEDS: CIPROFLOXACIN 500 MG TAB PO SCH (09:04)
[2016-04-24] MEDS: METOPROLOL TARTRATE 50 MG TAB PO SCH ×2 (09:04→21:35)
[2016-04-24] MEDS: ALLOPURINOL 300 MG TAB PO SCH (09:04)
[2016-04-24] MEDS: PRESERVISION AREDS2 FORMULA EYE VIT 1 EACH PO SCH ×2 (09:04→21:37)
[2016-04-24] MEDS: Levemir Flextouch SQ SCH (09:20)
[2016-04-24] MEDS: SENNOSIDES/DOCUSATE SODIUM TAB PO SCH ×2 (09:21→23:13)
--- NOTE | 2016-04-24 12:54 | SOAPPROG ---
SOAP Progress Note Assessment/Plan: Assessment: UTI. A-fib with rapid vent response. Cardiology consult in place. UTI, sensitive to all tested antibiotics. Plan: Send home tomorrow on oral antibiotic. Will chose septra as it will work for UTI and to the extent that there may be some cellulitis in R leg, it will cover most skin pathogens, jose a MRSA. Home tomorrow if rhythm is stable. 04/23/16 08:53 04/24/16 12:52 Subjective: Feeling good. Feels ready to go home. Objective: Vital Signs Temp Pulse Resp BP Pulse Ox 36.4 C 83 17 125/85 H 94 04/24/16 12:23 04/24/16 12:23 04/24/16 12:23 04/24/16 12:23 04/24/16 12:23 Microbiology 04/22/16 00:31 Urine Culture - Final Urine,Clean Catch Escherichia Coli Laboratory Results 04/23/16 04:24 04/24/16 04:10 04/23/16 04/24/16 04/25/16 05:59 05:59 05:59 Intake Total 640 1430 660 Output Total 101 Balance 640 1430 559 PT 16.7 SEC (12.0-15.0) H 04/21/16 14:49 INR 1.35 (0.83-1.16) H 04/21/16 14:49 Urine culture growing ecoli sensitive to all tested antibiotics. COR a-fib with controlled rate. Rate up to 130 this morning. Lungs clear. Mild swelling in R leg. ICD10 Worksheet Patient Problems: Problems Problem Status Diagnosed Atrial fibrillation and flutter Acute Cellulitis of right leg Acute Pneumonia Acute UTI (urinary tract infection) Acute Epididymitis Acute Orchitis Acute Pneumonia due to aerobic bacteria Acute
--- NOTE | 2016-04-24 13:53 | SOAPPROG ---
[facility] Progress Note Assessment/Plan: Assessment: Pt has a history of nonobstructive CAD per patient and PAF/PAFL. His arrhythmias typically occur in the setting of another illness and he typically converts spontaneously. He was admitted with fatigue, chills, and rigors and was found to have a UTI. He was also in atrial fibrillation with RVR. His Metoprolol was increased and he was started on a dilt drip. The dilt was d/c yesterday but he has remained on a increased dose of Metoprolol. Plan: 1. a.fib with RVR in the setting of UTI. BCX are currently negative. He is currently asymptomatic and being treated with rate control and anticoagulation. His rates are currently well controlled but were a little elevated in the morning. Continue Metoprolol 50 BID and Eliquis 5 BID. I did recommend the patient follow up with cardiology in 2-3 weeks for a EKG. He would prefer to follow up with his Dr. Ramos. If he remains in a.fib and becomes symptomatic consider CV. 2. RLE edema- Possible cellulitis of the right groin. I doubt a PE given he was on Xarelto prior to admission. 04/24/16 13:50 Subjective: No complaints. He denies any CP, SOB, or palpitations. Objective: Vital Signs Temp Pulse Resp BP Pulse Ox 36.4 C 83 17 125/85 H 94 04/24/16 12:23 04/24/16 12:23 04/24/16 12:23 04/24/16 12:23 04/24/16 12:23 Microbiology 04/22/16 00:31 Urine Culture - Final Urine,Clean Catch Escherichia Coli Laboratory Results 04/23/16 04:24 04/24/16 04:10 04/23/16 04/24/16 04/25/16 05:59 05:59 05:59 Intake Total 640 1430 660 Output Total 101 Balance 640 1430 559 PT 16.7 SEC (12.0-15.0) H 04/21/16 14:49 INR 1.35 (0.83-1.16) H 04/21/16 14:49 a.fib with adequately controlled rates - Pending Discharge Pending Discharge Within 24 Hours: Yes Pending Discharge Date: 04/25/16 Pending Discharge Time: 11:00 Physical Exam - Physical Exam General Appearance: WD/WN Respiratory: lungs clear, normal breath sounds, No crackles, No rales Cardiac/Chest: irregularly irregular Neuro/Psych: oriented x 3 ICD10 Worksheet Patient Problems: Problems Problem Status Diagnosed Atrial fibrillation and flutter Acute Cellulitis of right leg Acute Pneumonia Acute UTI (urinary tract infection) Acute Epididymitis Acute Orchitis Acute Pneumonia due to aerobic bacteria Acute
[2016-04-24 18:39] LABS: POTASSIUM 3.9 mEq/L (3.5-5.2)
[2016-04-24] MEDS: SULFAMETHOX/TMP 800/160 MG 1 TAB PO SCH (21:37)
[2016-04-24] MEDS: NIACIN ER 1000 MG TAB.ER PO SCH (21:37)
[2016-04-25 05:20] LABS: POTASSIUM 3.9 mEq/L (3.5-5.2)
[2016-04-25] MEDS ORDERED: POTASSIUM CL 10 MEQ TAB PO ONE (07:30)
[2016-04-25 07:49] VITALS: BP 126/77; PULSE 88; RESP 18; TEMP 97.5; O2SAT 95
[2016-04-25] MEDS: Levemir Flextouch SQ SCH (08:39)
[2016-04-25] MEDS: SULFAMETHOX/TMP 800/160 MG 1 TAB PO SCH (08:42)
[2016-04-25] MEDS: PIOGLITAZONE HCL 15 MG TAB PO SCH (08:42)
[2016-04-25] MEDS: METOPROLOL TARTRATE 50 MG TAB PO SCH (08:42)
[2016-04-25] MEDS: PRESERVISION AREDS2 FORMULA EYE VIT 1 EACH PO SCH (08:43)
[2016-04-25] MEDS: OMEGA-3 ETHYL EST-LOVAZA 1 GM CAP PO SCH (08:43)
[2016-04-25] MEDS: ALLOPURINOL 300 MG TAB PO SCH (08:43)
[2016-04-25] MEDS: APIXABAN 5 MG TAB PO SCH (08:43)
[2016-04-25] MEDS: CHOLECALCIFEROL VIT D3 1,000 UNITS TAB PO SCH (08:44)
[2016-04-25] MEDS: SENNOSIDES/DOCUSATE SODIUM TAB PO SCH (08:45)
--- NOTE | 2016-04-25 13:07 | PDIAF ---
- Diagnosis Diagnosis: UTI and rapid a fib Code Status: Full Code - Medication Management Discharge Medications: Medications to Continue on Transfer metFORMIN HCL [Glucophage 500 mg (*)] 500 mg PO BIDMEAL 02/14/15 [Last Taken 08:00] Herbals/Supplements -Info Only 1 ea PO DAILY 06/21/15 [Last Taken 04/21/16] Aspirin EC [Aspirin EC 81 mg (*)] 81 mg PO HS 04/21/16 [Last Taken 04/20/16] Rivaroxaban [Xarelto 15mg (*)] 15 mg PO HS 04/21/16 [Last Taken 04/20/16] Vit C/Dl-E AC/Lut/Copper/Znox [Preservision Softgel] 1 each PO BID 04/21/16 [ Last Taken 04/21/16 08:00] Allopurinol [Allopurinol 300 MG (RX)] 300 mg PO DAILY #0 tab 04/25/16 [Last Taken Unknown] C/E/Zn/Cu/OM3/DHA/EPA/LUT/ZEAX [Preservision Areds 2 Softgel] 1 each PO BID #0 cap 04/25/16 [Last Taken Unknown] Cephalexin [Keflex (*)] 500 mg PO Q8HRS #30 cap 04/25/16 [Last Taken Unknown] Cholecalciferol Vit D3 [Vitamin D3 (*)] 5,000 units PO BID #0 tab 04/25/16 [ Last Taken Unknown] Insulin Detemir [Levemir Flextouch] 36 unit SQ DAILY 04/25/16 [Last Taken Unknown] Metoprolol Tartrate [Lopressor 50 mg (*)] 50 mg PO BID #90 tab 04/25/16 [Last Taken Unknown] Niacin ER [Niaspan 1000 mg (*)] 1,000 mg PO HS #0 tab 04/25/16 [Last Taken Unknown] [place]-3 Ethyl Est-Lovaza [Lovaza 1 gm (*)] 2 gm PO BID #0 cap 04/25/16 [Last Taken Unknown] Pioglitazone HCl [Actos 15mg (*)] 15 mg PO DAILY #0 tab 04/25/16 [Last Taken Unknown] Retirement Antibiotics: cephalexin 500 mg TID Hash Slinger Antibiotic Stop Date: 05/04/16 Discharge Medications: Refer to the Discharge Home Medication list for PRN reason. PICC Care - Routine: N/A - Orders Services needed: Home Care, Registered Nurse, Physical Therapy Home Care Face to Face: I certify that this patient was under my care and that I had the required [id number] encounter meeting the encounter requirements on the discharge day. My findings support the fact that the patient is homebound as defined in CMS Chapter 7 Medicare Benefits Manual 30.1.1, The condition of the patient is such that there exists a normal inability to leave home and consequently, leaving home would require a considerable and taxing effort. Diet Recommendation: no restrictions on diet Diet Texture: Regular Texture Diet (Follow up with me in 1 week) Weigh Patient: weekly Herrera: No - Follow Up Care Current Providers and Referrals: Gordon Ramos MD [Medical Doctor] - NONE *PRIMARY CARE P,. [Primary Care Provider] - As per Instructions
[2016-04-25] MEDS ORDERED: CEPHALEXIN 500 MG CAP PO SCH (14:00)
--- NOTE | 2016-04-25 22:55 | GDS ---
[f rep st] DISCHARGE SUMMARY ADMISSION DIAGNOSIS: Cellulitis of the right leg. DISCHARGE DIAGNOSIS: Urinary tract infection with atrial fibrillation. HOSPITAL COURSE: IV and oral antibiotics. Correct monitoring and adjustment of medications. COMPLICATIONS: None. HOSPITAL COURSE: The patient was admitted with a tachycardia with atrial fibrillation and what was t hought to be cellulitis of his right leg. He does have some swelling and redness of his leg; however , he does have chronic venous insufficiency. He is on anticoagulation routinely. He was in atrial f ibrillation with a rapid ventricular response. He often times goes into atrial fibrillation when he gets and infection. He has a history of recurrent bladder infection. Urinalysis revealed evidence o f infection which were 100,000 colonies of Escherichia coli sensitive to all antibiotics tested. Thi s is the same sensitivity profile that he has had on 3 prior occasions when he presented with urinary tract infection. He does have seeds in his prostate and the concern is that these seeds have provid ed a foreign object for the infection to acquire residency status. He was initially placed on placed on vancomycin, was quickly switched to Unasyn. He was briefly placed on trimethoprim/sulfa. Boo little, he developed some skin redness on trimethoprim/sulfa. This is likely related to his niacin, but I was concerned about the possibility of a direct reaction. He was then switched to Keflex and discha rged to home. His metoprolol dosage was increased, as he had probiotics with tachyarrhythmia. His A CE inhibitor was held and he was discharged to home. DISCHARGE MEDICATIONS: Allopurinol 200 mg per day, enteric-coated aspirin 81 mg per day, cephalexin 500 mg 3 times a day for 10 days, cholecalciferol 5000 units b.i.d., herbal supplements, insulin 36 u nits subcu daily, metoprolol 50 mg q.a.m., 100 mg q.p.m., niacin ER 1000 mg daily, omega-3 fatty acid 2 g twice daily, pioglitazone 50 mg daily, Xarelto 50 mg daily, metformin 500 mg b.i.d. FOLLOWUP: He will follow up with me in one week, sooner if he has any increased symptoms. /[id number]/MODL
== END 2016-04-25 14:05 | disposition home health service (06) | DRG 699 ==
LOC: EDUNIT# → F2W 17:14
PROVIDERS: ADMIT Internal Medicine; ATTEND Internal Medicine
DX: T83.598A Infection and inflammatory reaction due to other prosthetic device, implant and graft in urinary system, initial encounter (principal); N39.0 Urinary tract infection, site not specified; B96.20 Unspecified Escherichia coli [E. coli] as the cause of diseases classified elsewhere; I48.0 Paroxysmal atrial fibrillation; I48.92 Unspecified atrial flutter; E87.1 Hypo-osmolality and hyponatremia; L03.115 Cellulitis of right lower limb; I25.10 Atherosclerotic heart disease of native coronary artery without angina pectoris; E11.9 Type 2 diabetes mellitus without complications; I10 Essential (primary) hypertension; L89.151 Pressure ulcer of sacral region, stage 1; Z79.01 Long term (current) use of anticoagulants; Z85.51 Personal history of malignant neoplasm of bladder; Z85.46 Personal history of malignant neoplasm of prostate
CPT/HCPCS: 96365; 97116-GP; 97161-GP; 97166-GO; 97530-GP; 97535-GO; G8978-GP-CI; G8979-GP-CI; G8980-GP-CI; G8987-GO-CL; G8988-GO-CI; J3370

== ENCOUNTER 2016-08-15 16:08 | Inpatient (IN) | payer OTHER ==
[2016-08-15 17:25] LABS: % IMMATURE GRANULYOCYTES 0.6 % (0.0-1.1); ABSOLUTE IMMATURE GRANULOCYTES 0.06 10^3/uL (0.00-0.10); ADD DIFF? NO; ADD MORPH? NO; ADD SCAN? NO; ANION GAP 11 mEq/L (8-16); ATYPICAL LYMPHOCYTE FLAG 0 (0-99); CARBON DIOXIDE 23 mEq/l (22-31); CHLORIDE 97 mEq/L (97-110); CREATININE 0.7 mg/dL (0.7-1.3); FRAGMENT RBC FLAG 0 (0-99); GLOMERULAR FILTRATION RATE > 60; GLUCOSE 187 mg/dL (70-100); HEMATOCRIT 49.2 % (40.0-51.0); HEMOGLOBIN 16.5 g/dL (13.7-17.5); LEFT SHIFT FLG 0 (0-99); LIPEMIA HEMOLYSIS FLAG 80 (0-99); MEAN CELL HEMOGLOBIN 29.8 pg (27.9-34.1); MEAN CELL HEMOGLOBIN CONCENTR. 33.5 g/dL (32.4-36.7); MEAN CELL VOLUME 88.8 fL (81.5-99.8); MEAN PLATELET VOLUME 10.7 fL (8.7-11.7); PLATELET CLUMPS FLAG 20 (0-99); PLATELET COUNT 156 10^3/uL (150-400); POTASSIUM 4.4 mEq/L (3.5-5.2); RED BLOOD CELL COUNT 5.54 10^6/uL (4.40-6.38); RED CELL DISTRIBUTION WIDTH 15.1 % (11.5-15.2); SODIUM 131 mEq/L (134-144)
[2016-08-15 17:27] LABS: INR 1.3 (0.83-1.16); PROTIME(PATIENT) 16.2 SEC (12.0-15.0)
--- NOTE | 2016-08-15 17:27 | EDPHY ---
H & P Stated Complaint: chills Time Seen by Provider: 08/15/16 17:23 HPI/ROS: CHIEF COMPLAINT: Chills HISTORY OF PRESENT ILLNESS: This patient is an 87 year old diabetic male referred to the Emergency Department by Dr. Ramos for worsening chills over the past 24 hours. He complains of associated non-productive cough, myalgias, and mild intermittent dyspnea over that time as well. He denies vomiting, chest pain, abdominal pain, or urinary complaints. REVIEW OF SYSTEMS: A 10 point review of systems was performed and is negative with the exception of the elements mentioned in the history of present illness. Source: Patient Exam Limitations: No limitations - Medical/Surgical History PMH: 1. AODM 2. Bladder cancer 3. DJD 4. Kidney stones 5. Melanoma removed 2007, 2016 6. Prostate cancer (2008) 7. Small aortic aneurysm (2008) 8. Type II Diabetes Hx Asthma: No Hx Chronic Respiratory Disease: No Hx Diabetes: Yes Hx Cardiac Disease: Yes Hx Renal Disease: No Hx Cirrhosis: No Hx Alcoholism: No Hx HIV/AIDS: No Hx Splenectomy or Spleen Trauma: No Other PMH: Afib/Aflutter, DM2, high cholesterol,HTN, bladder CA, kidney stones, prostate CA, small aortic aneurysm, R total hip - Social History Smoking Status: Former smoker Additional Social History: Lives independently with his . - Physical Exam Exam: General Appearance: Alert, no acute distress. Blood pressure 158/72. Eyes: Pupils equal and round, no conjunctival injection, no discharge. ENT, Mouth: Mucous membranes are moist, no oropharyngeal erythema or edema. Neck: No lymphadenopathy, supple. Respiratory: Lung sounds diminished on the left; no wheezes, rales, or rhonchi. Cardiovascular: Regular rate and rhythm; no murmur, rub, or gallop. Gastrointestinal: Abdomen is soft and non tender, no masses or organomegaly, bowel sounds normal. Skin: Warm and dry, no rashes, normal color. Back: Nontender to palpation over the thoracolumbar spine. Extremities: Trace peripheral edema, no calf tenderness or swelling. Neurological: Alert and oriented. Moving all four extremities easily and equally. Psychiatric: Normal affect. Constitutional: Initial Vital Signs Heart Rate 83 08/15/16 17:33 Respiratory Rate 16 08/15/16 17:33 Blood Pressure 158/72 H 08/15/16 17:33 O2 Sat (%) 98 08/15/16 17:33 O2 Delivery Mode Room Air Allergies/Adverse Reactions: No Allergies [NKDA] Allergy (Verified 02/14/15 13:30) Home Medications: Medication Instructions Recorded metFORMIN HCL [Glucophage 500 mg 500 mg PO BIDMEAL 02/14/15 (*)] Herbals/Supplements -Info Only 1 ea PO DAILY 06/21/15 Aspirin EC [Aspirin EC 81 mg (*)] 81 mg PO HS 04/21/16 Rivaroxaban [Xarelto 15mg (*)] 15 mg PO HS 04/21/16 Vit C/Dl-E AC/Lut/Copper/Znox 1 each PO BID 04/21/16 [Preservision Softgel] Allopurinol [Allopurinol 300 MG 300 mg PO DAILY #0 tab 04/25/16 (RX)] C/E/Zn/Cu/OM3/DHA/EPA/LUT/ZEAX 1 each PO BID #0 cap 04/25/16 [Preservision Areds 2 Softgel] Niacin ER [Niaspan 1000 mg (*)] 1,000 mg PO HS #0 tab 04/25/16 Cholecalciferol Vit D3 [Vitamin D3 1,000 units PO HS 08/15/16 (*)] Cholecalciferol Vit D3 [Vitamin D3 2,000 units PO DAILY 08/15/16 (*)] Insulin Detemir [Levemir] 36 unit SQ DAILY 08/15/16 Metoprolol Tartrate [Lopressor 50 50 mg PO DAILY 08/15/16 mg (*)] [place]-3 Ethyl Est-Lovaza [Lovaza 1 1 gm PO BID 08/15/16 gm (*)] Pioglitazone HCl [Actos 15mg (*)] 15 mg PO HS 08/15/16 Nitrofurantoin Macrocrystal 100 mg PO DAILY #0 08/18/16 [Macrodantin 100 mg] Sulfamethox/Tmp 800/160 mg 1 tab PO BID #14 tab 08/18/16 [Bactrim Ds] Medical Decision Making - Diagnostics Imaging Results: Two-view chest x-ray reviewed by me. No infiltrate. I have also reviewed the radiology report. Imaging: I viewed and interpreted images myself ED Course/Re-evaluation: 87-year-old diabetic male presents with complaints of chills and non-productive cough for which he was referred to the ED by his PCP for suspected pneumonia. The patient is hypertensive at 158/72; vitals are otherwise within normal limits. Will proceed with chest x-ray and labs. IV established. 1L IV NS administered. Chest x-ray reviewed by me reveals no acute disease, no infiltrate. Labs obtained. His lactate is elevated at 4.0. Additional 1L IV NS administered. 1 gm IV Invanz administered. He does not meet criteria for sepsis. Source of infection has not been identified at this time. He is noted to have a scabbed lesion on his frontal scalp, the site of the previous removal of skin cancer. It is possible that this is a source of infection. 1732: Dr. Ramos, the patient's PCP, at bedside. He had scheduled a bed for the patient to be transferred to floor. 1750: Repeat lactate down to 2.4 following administration of additional fluids. The patient is awaiting transfer to the floor. Differential Diagnosis: Fever in adults including but not limited to pneumonia, urinary tract infection , viral syndrome, and influenza. - Data Points Laboratory Results: Laboratory Results 08/15/16 16:44 08/15/16 16:44 Medications Given: Discontinued Medications Allopurinol (Allopurinol) 300 mg PO DAILY SHANICE Stop: 02/12/17 08:59 Last Admin: 08/18/16 08:33 Dose: 300 mg Aspirin Buffered (Aspirin Ec) 81 mg PO HS SHANICE Stop: 02/11/17 20:59 Last Admin: 08/17/16 20:25 Dose: 81 mg Cholecalciferol (Vitamin D) 1,000 units PO HS SHANICE Stop: 02/11/17 20:59 Last Admin: 08/17/16 20:25 Dose: 1,000 units Cholecalciferol (Vitamin D) 2,000 units PO DAILY SHANICE Stop: 02/12/17 08:59 Last Admin: 08/18/16 08:34 Dose: 2,000 units Ertapenem 1 gm/ Sodium (Chloride) 100 mls @ 200 mls/hr IV EDNOW ONE PRN Reason: Protocol Stop: 08/15/16 18:05 Last Admin: 08/15/16 18:42 Dose: 100 mls Vancomycin/Sodium Chloride (Vancomycin 1 Gm (Premix)) 250 mls @ 250 mls/hr IV ONCE ONE PRN Reason: Protocol Stop: 08/15/16 19:38 Last Admin: 08/15/16 19:09 Dose: 250 mls Sodium Chloride (Ns) 2,600 mls @ 5,200 mls/hr 30 ml/kg infuse over 30 min ( 2600 ml) IV EDNOW ONE Stop: 08/15/16 19:10 Last Admin: 08/15/16 18:58 Dose: 2,600 mls Sodium Chloride (Ns) 1,000 mls @ 100 mls/hr IV CONT [facility] Stop: 02/12/17 04:39 Last Admin: 08/16/16 18:04 Dose: 1,000 mls Levofloxacin/Dextrose (Levaquin 750 Mg (Premix)) 150 mls @ 100 mls/hr IV DAILY SHANICE PRN Reason: Protocol Stop: 09/15/16 09:59 Last Admin: 08/18/16 08:34 Dose: 150 mls Vancomycin HCl 1.25 gm/ (Dextrose) 250 mls @ 166.67 mls/hr IV Q24H SHANICE PRN Reason: Protocol Stop: 09/15/16 09:29 Last Admin: 08/16/16 11:52 Dose: Not Given Vancomycin/Sodium Chloride (Vancomycin 1 Gm (Premix)) 250 mls @ 250 mls/hr IV Q12H [facility] Stop: 09/16/16 00:00 Last Admin: 08/17/16 13:04 Dose: 250 mls Vancomycin HCl 1.25 gm/ (Dextrose) 250 mls @ 166.667 mls/hr IV ONCE ONE Stop: 08/16/16 13:59 Last Admin: 08/16/16 12:15 Dose: 250 mls Vancomycin/Sodium Chloride (Vancomycin 1 Gm (Premix)) 250 mls @ 250 mls/hr IV Q12H [facility] Stop: 09/17/16 00:59 Last Admin: 08/18/16 01:25 Dose: 250 mls Insulin Human Lispro (Humalog Lispro) 0 unit SC TIDMEAL [facility] PRN Reason: Protocol Stop: 02/12/17 07:59 Last Admin: 08/18/16 11:56 Dose: 4 units Metoprolol Tartrate (Lopressor) 50 mg PO DAILY [facility] Stop: 02/12/17 08:59 Last Admin: 08/18/16 08:33 Dose: 50 mg Miscellaneous Medication (Insulin Detemir [Levemir]) 0 unit SQ DAILY SHANICE Stop: 02/12/17 08:59 Last Admin: 08/18/16 08:34 Dose: 36 units Multivitamins/Minerals (Preservision Areds2 Formula) 1 each PO BID SHAINCE Stop: 02/11/17 20:59 Last Admin: 08/15/16 21:29 Dose: 1 each Multivitamins/Minerals (Preservision Areds2 Formula) 1 each PO BIDMEAL SHANICE Stop: 02/11/17 20:59 Last Admin: 08/18/16 08:34 Dose: 1 each Niacin (Niaspan) 1,000 mg PO HS SHANICE Stop: 02/11/17 20:59 Last Admin: 08/17/16 20:24 Dose: 1,000 mg Ddpcy-[id number] Ethyl Esters (Lovaza) 1 gm PO BID SHANICE Stop: 02/11/17 20:59 Last Admin: 08/18/16 08:33 Dose: 1 gm Pioglitazone HCl (Actos) 15 mg PO HS SHANICE Stop: 02/11/17 20:59 Last Admin: 08/17/16 20:25 Dose: 15 mg Rivaroxaban (Xarelto) 15 mg PO HS SHANICE Stop: 02/11/17 20:59 Last Admin: 08/17/16 20:25 Dose: 15 mg Trimethoprim/Sulfamethoxazole (Bactrim Ds) 1 ea PO ONCE ONE PRN Reason: Protocol Stop: 08/18/16 10:53 Last Admin: 08/18/16 11:56 Dose: 1 ea Departure - Departure Disposition: [facility] Acute Clinical Impression: Fever and chills Condition: Fair Report Scribed for: Carla Roper Report Scribed by: Jessica Stone Date of Report: 08/15/16 Time of Report: 17:27 Physician Review and Approval Statement: 08/15/16 17:27 Portions of this note were transcribed by the biomedical specialist. I, Dr. Carla Roper, personally performed the history, physical exam, and medical decision- making; and confirmed the accuracy of the information in the transcribed note.
[2016-08-15] MEDS ORDERED: ERTAPENEM 1 GM in NS 100 ML IV ONE (17:36)
[2016-08-15 18:11] LABS: COLOR YELLOW; LEUKOCYTE ESTERASE,URINE NEGATIVE (NEGATIVE); NITRITE,URINE NEGATIVE (NEGATIVE)
[2016-08-15 18:15] LABS: MUCUS TRACE /lpf (NONE-1+)
[2016-08-15] MEDS ORDERED: VANCOMYCIN HCL/NORMAL SALINE 250 ML IV ONE (18:39)
[2016-08-15] MEDS ORDERED: NS 2,600 ML IV ONE (18:41)
--- NOTE | 2016-08-15 18:41 | PDCONSULT ---
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 Will cover with vancomycin until cultures are back.
[2016-08-15 18:45] LABS: HEMATOCRIT 49.4 % (40.0-51.0)
[2016-08-15] MEDS ORDERED: VANCOMYCIN 1 GM/NS 250 ML BAG IV ONE (19:06)
--- NOTE | 2016-08-15 19:20 | GHP ---
[f rep st] HISTORY AND PHYSICAL DATE OF ADMISSION: 08/15/2016 REASON FOR ADMISSION: Fever, chills, weakness. HISTORY: The patient is an 86-year-old male, who has a history of recurrent urinary tract infection s, previous pneumonia, who has been dealing with an open wound on his forehead from Mohs surgery for the past couple of months. He developed rigors last night, and presents to the office today with f ever and chills. PAST MEDICAL HISTORY: Significant for type 2 diabetes, bladder cancer, degenerative joint disease, kidney stones, melanoma removal in 2006 and 2007, prostate cancer, small aortic aneurysm on ultrasou nd, recurrent urinary tract infections, testicular hypofunction, and previous bronchitis, as well as supraventricular tachycardia, and intermittent atrial fibrillation. CURRENT MEDICATIONS: Levemir 40 units subcutaneous daily, Xarelto 50 mg p.o. daily, Macrodantin 100 mg p.o. daily for urinary prophylaxis, Lovaza 1 g twice daily, metformin 500 mg twice daily, allopu rinol 300 mg daily, Actos 15 mg daily, metoprolol tartrate 50 mg daily in the morning, 100 mg at [facility], aspirin 81 mg daily, Niaspan 1000 mg daily, vitamin D 2000 units in the morning, 1000 in the maricel dulce, Welchol 3.75 g packets, 1 packet daily, Tylenol p.r.n., milk of magnesia 5 mg as needed daily. REVIEW OF SYSTEMS: He has been in his normal state of health until he had the chills last night. A s stated, he is recovering from Mohs surgery of a squamous cell on his head, and he has had an open healing wound for the last couple of months. Appetite has been good. Blood sugars have been in goo d range. PHYSICAL EXAM: VITAL SIGNS: Blood pressure is 160/80, temperature is 101.6. He weighs 190 pounds. He is 186 cm tall. Heart was 75 and regular, respirations 16, and oxygen saturation was 87% on ro om air. GENERAL APPEARANCE: He is alert, somewhat flushed, pleasant. He is feeling chilled. HEEN T: Pupils are equal, and reactive to light. He is normocephalic. SKIN: Has an open wound on his forehead, which is healing well, with no evidence of infection. HEART: Regular rate and rhythm wit hout murmur. LUNGS: Bibasilar rales, worse in the left. EXTREMITIES: Showed good range of motion . He is alert, oriented and appropriate. Moves all extremities well. PSYCHOLOGICAL: Oriented. C ognitive function is intact. Good eye contact. Good judgment. Good insight. IMPRESSION: Fever of uncertain etiology in an elderly man with multiple comorbidities. Considering his pulmonary evaluation, I think there is a good chance that this is from a pulmonary source, even though his chest x-ray currently does not show infection. I do have some concern that with an open wound for the last couple of months, that he could have bacteremia and possibly even endocarditis. We will empirically place him on antibiotics. We will do blood cultures, urine cultures. Recheck a chest x-ray in the morning. Maintain IV hydration. Follow closely. /[id number]/MODL
[2016-08-15] MEDS ORDERED: PRESERVISION AREDS2 FORMULA EYE VIT 1 EACH PO SCH (21:00)
[2016-08-15] MEDS ORDERED: D50W 25 GM/50 ML SYR IVP PRN (21:01)
[2016-08-15] MEDS: OMEGA-3 ETHYL EST-LOVAZA 1 GM CAP PO SCH (21:28)
[2016-08-15] MEDS: NIACIN ER 1000 MG TAB.ER PO SCH (21:28)
[2016-08-15] MEDS: RIVAROXABAN 15 MG TAB PO SCH (21:29)
[2016-08-15] MEDS: PIOGLITAZONE HCL 15 MG TAB PO SCH (21:29)
[2016-08-15] MEDS: ASPIRIN EC 81 MG TAB PO SCH (21:29)
[2016-08-15] MEDS: CHOLECALCIFEROL VIT D3 1,000 UNITS TAB PO SCH (21:30)
[2016-08-15] MEDS: PRESERVISION AREDS2 FORMULA EYE VIT 1 EACH PO SCH (22:28)
[2016-08-16] MEDS ORDERED: NS 1,000 ML IV SCH (04:40)
[2016-08-16 05:41] LABS: HEMATOCRIT 43.6 % (40.0-51.0)
[2016-08-16] MEDS: CHOLECALCIFEROL VIT D3 2,000 UNITS TAB/CAP PO SCH (08:27)
[2016-08-16] MEDS: ALLOPURINOL 300 MG TAB PO SCH (08:27)
[2016-08-16] MEDS: OMEGA-3 ETHYL EST-LOVAZA 1 GM CAP PO SCH ×2 (08:28→20:20)
[2016-08-16] MEDS: PRESERVISION AREDS2 FORMULA EYE VIT 1 EACH PO SCH ×2 (08:28→17:59)
[2016-08-16] MEDS: INSULIN LISPRO 100 UNIT/ML SC SCH ×3 (08:30→17:59)
[2016-08-16] MEDS: INSULIN DETEMIR 36 UNIT SQ SCH (08:32)
[2016-08-16] MEDS: METOPROLOL TARTRATE 50 MG TAB PO SCH (08:42)
[2016-08-16] MEDS ORDERED: Herbals/Supplements -Info Only PO SCH (09:00)
--- NOTE | 2016-08-16 09:07 | WOCRNPDOC ---
WOCRN Advanced Assessment Note - Skin Integrity Problem, Advanced Assess Sacrum Pressure Injury Dressing Type: Open to Air Site Measurement - Head-to-Toe Length X Width X Depth (cm): [id number] Pressure Injury Stage: Stage 1 Pressure Injury Present on Admit: Yes Skin Integrity Problem Comment: Large Stage 1 pressure injury with small partial thickness ulcers on right buttock caused by friction and moisture. Discussed offloading with patient as well as cream's to help prevent IAD. Pressure injury educational pamphlet provided. Report given to ELLEN Pitt. Advised patient take home offloading cushion for chair and reposition himself in his chair every hour. All of patients questions answered and he verbalized understanding. Wound care will not follow. Please reconsult prn.
--- NOTE | 2016-08-16 09:15 | SOAPPROG ---
SOAP Progress Note Assessment/Plan: Assessment: Plan: 08/16/16 09:14 probable bacterial infection. Source unclear. Lactic acid was elevated along with rigors and weakness. He is improved this morning. Continue on Vanco for poss staph from dermatologic surgery and add Levaquin for pulmonary coverage. Await cultures, check am labs. See if strength rebounds quickly. d/w Dr Ramos Subjective: The patient had rigors and fatigue the evening before admission. He still feels weak with standing, otherwise he has no complaints. Moh's surgery was 05/30 on scalp. He is overdue for a dental check, but has no complaints. Dry cough only. No CP No GI or sx. Objective: Vital Signs Temp Pulse Resp BP Pulse Ox 36.8 C 77 18 131/64 H 93 08/16/16 08:00 08/16/16 08:00 08/16/16 08:00 08/16/16 08:00 08/16/16 08:00 Laboratory Results 08/16/16 05:08 08/15/16 08/16/16 08/17/16 05:59 05:59 05:59 Intake Total 150 Output Total 200 Balance -50 PT 16.2 SEC (12.0-15.0) H 08/15/16 16:44 INR 1.30 (0.83-1.16) H 08/15/16 16:44 Gen: NAD, pleasant, conversant Lungs: dry cough Heart: irreg irreg with rate control Abd + bs soft NT Scalp--crusted scab on forehead, Moh's area looks good. LE's stable mild edema WBC elevated mildly in ER CXR unremarkable BCx's pending rigors resolved Lactic acid was elevated ICD10 Worksheet Patient Problems: Problems Problem Status Onset Fever and chills Acute Sepsis Acute Atrial fibrillation and flutter Acute Cellulitis of right leg Acute Epididymitis Acute Orchitis Acute Pneumonia Acute Pneumonia due to aerobic bacteria Acute UTI (urinary tract infection) Acute
[2016-08-16] MEDS ORDERED: VANCOMYCIN 1.25 GM in D5W 250 ML IV SCH (09:30)
[2016-08-16] MEDS ORDERED: VANCOMYCIN 1.25 GM in D5W 250 ML IV ONE (12:30)
[2016-08-16] MEDS: PIOGLITAZONE HCL 15 MG TAB PO SCH (20:20)
[2016-08-16] MEDS: NIACIN ER 1000 MG TAB.ER PO SCH (20:20)
[2016-08-16] MEDS: CHOLECALCIFEROL VIT D3 1,000 UNITS TAB PO SCH (20:20)
[2016-08-16] MEDS: RIVAROXABAN 15 MG TAB PO SCH (20:20)
[2016-08-16] MEDS: ASPIRIN EC 81 MG TAB PO SCH (20:20)
[2016-08-16] MEDS: VANCOMYCIN HCL/NORMAL SALINE 250 ML IV SCH (23:22)
[2016-08-17 05:44] LABS: % IMMATURE GRANULYOCYTES 0.3 % (0.0-1.1); ABSOLUTE IMMATURE GRANULOCYTES 0.02 10^3/uL (0.00-0.10); ADD DIFF? NO; ADD MORPH? NO; ADD SCAN? NO; ATYPICAL LYMPHOCYTE FLAG 0 (0-99); FRAGMENT RBC FLAG 0 (0-99); HEMATOCRIT 43.3 % (40.0-51.0); HEMOGLOBIN 14.6 g/dL (13.7-17.5); LEFT SHIFT FLG 0 (0-99); LIPEMIA HEMOLYSIS FLAG 80 (0-99); MEAN CELL HEMOGLOBIN 30.3 pg (27.9-34.1); MEAN CELL HEMOGLOBIN CONCENTR. 33.7 g/dL (32.4-36.7); MEAN CELL VOLUME 89.8 fL (81.5-99.8); MEAN PLATELET VOLUME 10.3 fL (8.7-11.7); PLATELET CLUMPS FLAG 0 (0-99); PLATELET COUNT 128 10^3/uL (150-400); RED BLOOD CELL COUNT 4.82 10^6/uL (4.40-6.38); RED CELL DISTRIBUTION WIDTH 14.9 % (11.5-15.2)
[2016-08-17 06:35] LABS: ANION GAP 10 mEq/L (8-16); CALCIUM 8.8 mg/dL (8.5-10.4); CARBON DIOXIDE 19 mEq/l (22-31); CHLORIDE 108 mEq/L (97-110); CREATININE 0.6 mg/dL (0.7-1.3); GLOMERULAR FILTRATION RATE > 60; GLUCOSE 110 mg/dL (70-100); POTASSIUM 3.9 mEq/L (3.5-5.2); SODIUM 137 mEq/L (134-144)
--- NOTE | 2016-08-17 08:57 | SOAPPROG ---
SOAP Progress Note Assessment/Plan: Assessment: Plan: 08/16/16 09:14 probable bacterial infection. Source unclear. Lactic acid was elevated along with rigors and weakness. He is improved this morning. Continue on Vanco for poss staph from dermatologic surgery and add Levaquin for pulmonary coverage. Await cultures, check am labs. See if strength rebounds quickly. d/w Dr Ramos 08/17/16 08:56 rapid a fib. it looks like evening metoprolol dose did not make in through on the orders, He will get his normal 50 mg dose shortly, BID scheduled ordered now Objective: Vital Signs Temp Pulse Resp BP Pulse Ox 36.6 C 77 16 131/68 H 92 08/17/16 08:00 08/17/16 08:00 08/17/16 08:00 08/17/16 08:00 08/17/16 08:00 Laboratory Results 08/17/16 05:20 08/17/16 05:20 08/16/16 08/17/16 08/18/16 05:59 05:59 05:59 Intake Total 150 1951 Output Total 200 200 Balance -50 1751 PT 16.2 SEC (12.0-15.0) H 08/15/16 16:44 INR 1.30 (0.83-1.16) H 08/15/16 16:44 ICD10 Worksheet Patient Problems: Problems Problem Status Onset Fever and chills Acute Sepsis Acute Atrial fibrillation and flutter Acute Cellulitis of right leg Acute Epididymitis Acute Orchitis Acute Pneumonia Acute Pneumonia due to aerobic bacteria Acute UTI (urinary tract infection) Acute
[2016-08-17] MEDS: PRESERVISION AREDS2 FORMULA EYE VIT 1 EACH PO SCH ×2 (09:05→18:04)
[2016-08-17] MEDS: METOPROLOL TARTRATE 50 MG TAB PO SCH (09:05)
[2016-08-17] MEDS: OMEGA-3 ETHYL EST-LOVAZA 1 GM CAP PO SCH ×2 (09:05→20:24)
[2016-08-17] MEDS: CHOLECALCIFEROL VIT D3 2,000 UNITS TAB/CAP PO SCH (09:05)
[2016-08-17] MEDS: ALLOPURINOL 300 MG TAB PO SCH (09:05)
[2016-08-17] MEDS: INSULIN DETEMIR 36 UNIT SQ SCH (09:06)
[2016-08-17] MEDS: INSULIN LISPRO 100 UNIT/ML SC SCH ×3 (09:13→18:04)
[2016-08-17] MEDS: VANCOMYCIN HCL/NORMAL SALINE 250 ML IV SCH (13:04)
--- NOTE | 2016-08-17 18:01 | SOAPPROG ---
SOAP Progress Note Assessment/Plan: Assessment:Bronchitis improved. fever resolved. POssible scalp cellulitis dramatically improved. Plan:Cont IV antibiotics. PT OT for ambulation and assessment of safety at home 08/17/16 18:02 Subjective: Feels very weak. NO fever. COugh improved. Objective: Vital Signs Temp Pulse Resp BP Pulse Ox 36.8 C 60 16 162/73 H 97 08/17/16 16:50 08/17/16 16:50 08/17/16 16:50 08/17/16 16:50 08/17/16 16:50 Laboratory Results 08/17/16 05:20 08/17/16 05:20 08/16/16 08/17/16 08/18/16 05:59 05:59 05:59 Intake Total 150 1951 Output Total 200 200 Balance -50 1751 PT 16.2 SEC (12.0-15.0) H 08/15/16 16:44 INR 1.30 (0.83-1.16) H 08/15/16 16:44 Lungs with significantly improved rales. COR RRR. No significant edema. Scalp wound looks clean. ICD10 Worksheet Patient Problems: Problems Problem Status Onset Fever and chills Acute Sepsis Acute Atrial fibrillation and flutter Acute Cellulitis of right leg Acute Epididymitis Acute Orchitis Acute Pneumonia Acute Pneumonia due to aerobic bacteria Acute UTI (urinary tract infection) Acute
[2016-08-17] MEDS: NIACIN ER 1000 MG TAB.ER PO SCH (20:24)
[2016-08-17] MEDS: CHOLECALCIFEROL VIT D3 1,000 UNITS TAB PO SCH (20:25)
[2016-08-17] MEDS: RIVAROXABAN 15 MG TAB PO SCH (20:25)
[2016-08-17] MEDS: PIOGLITAZONE HCL 15 MG TAB PO SCH (20:25)
[2016-08-17] MEDS: ASPIRIN EC 81 MG TAB PO SCH (20:25)
[2016-08-18] MEDS ORDERED: VANCOMYCIN HCL/NORMAL SALINE 250 ML IV SCH (01:00)
[2016-08-18 04:37] VITALS: BP 148/93; PULSE 110
[2016-08-18] MEDS: INSULIN LISPRO 100 UNIT/ML SC SCH ×2 (08:33→11:56)
[2016-08-18] MEDS: ALLOPURINOL 300 MG TAB PO SCH (08:33)
[2016-08-18] MEDS: OMEGA-3 ETHYL EST-LOVAZA 1 GM CAP PO SCH (08:33)
[2016-08-18] MEDS: METOPROLOL TARTRATE 50 MG TAB PO SCH (08:33)
[2016-08-18] MEDS: CHOLECALCIFEROL VIT D3 2,000 UNITS TAB/CAP PO SCH (08:34)
[2016-08-18] MEDS: PRESERVISION AREDS2 FORMULA EYE VIT 1 EACH PO SCH (08:34)
[2016-08-18] MEDS: INSULIN DETEMIR 36 UNIT SQ SCH (08:34)
[2016-08-18 09:48] VITALS: RESP 17; TEMP 97.5; O2SAT 93
[2016-08-18] MEDS ORDERED: SULFAMETHOX/TMP 800/160 MG 1 TAB PO ONE (10:52)
--- NOTE | 2016-08-18 11:49 | GDS ---
[f rep st] DISCHARGE SUMMARY ADMISSION DIAGNOSIS: Infection, early sepsis, uncertain etiology, probably pulmonary. DISCHARGE DIAGNOSIS: Infection, early sepsis, uncertain etiology, probably pulmonary. PROCEDURES: IV antibiotics, blood cultures. HOSPITAL COURSE: Patient is admitted with fever and pulmonary rales. Initial chest x-ray showed no infiltrates. Blood cultures were obtained, which had no growth. He was empirically placed on vanc omycin and levofloxacin. His fever rapidly defervesced, his white count returned to normal. He had a mildly elevated lactate, which responded to hydration. He did well, his white count normalized, his pulmonary rales resolved. Initially he was incredibly weak, his strength improved. He was able to walk close to his baseline strength, and has been discharged to home. DISCHARGE MEDICATIONS: Allopurinol 300 mg daily, aspirin 81 mg daily, cholecalciferol 1000 units at bedtime, 2000 units a.m., Levemir 36 units daily, metoprolol 50 mg a.m., 100 mg p.m., niacin ER 100 0 mg at bedtime, omega-3 one g b.i.d., pioglitazone 50 mg daily, Xarelto 15 mg daily, trimethoprim s ulfa one b.i.d. for 7 days, PreserVision daily, metformin 500 mg b.i.d. After he has completed his course of trimethoprim sulfa he will restart his prophylactic, nitrofurantoin 100 mg daily. He will follow up with me on Saturday, sooner if he develops fever or increased weakness. /[id number]/MODL
== END 2016-08-18 12:32 | disposition home or self-care (01) | DRG 872 ==
LOC: F3E 20:26
PROVIDERS: ADMIT Internal Medicine; ATTEND Internal Medicine
DX: A41.9 Sepsis, unspecified organism (principal); R09.89 Other specified symptoms and signs involving the circulatory and respiratory systems; E11.9 Type 2 diabetes mellitus without complications; I48.91 Unspecified atrial fibrillation; I10 Essential (primary) hypertension; Z85.51 Personal history of malignant neoplasm of bladder; Z85.46 Personal history of malignant neoplasm of prostate; Z87.442 Personal history of urinary calculi; Z98.890 Other specified postprocedural states
CPT/HCPCS: 97116-GP; 97162-GP; 97166-GO; 97530-GP; 97535-GO; G8978-GP-CM; G8979-GP-CK; G8987-GO-CK; G8988-GO-CI; J1335; J1815; J1956; J3370

== ENCOUNTER 2016-11-01 16:22 | Inpatient (IN) | payer OTHER ==
--- NOTE | 2016-11-01 16:49 | GHP ---
[f rep st] HISTORY AND PHYSICAL REASON FOR ADMISSION: Probable pneumonia. HISTORY: The patient is an 86-year-old male, who presents with 2 days' worth of chills and a temperature to 100.8. He was in his normal state of health until yesterday afternoon when he developed shaking chills. He went to bed and slept through the afternoon and woke up this morning, was still feeling cold, went back to bed, and has slept most of the day, wakes up this afternoon and is still feeling sick and weak and presents for further evaluation. 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 CURRENT MEDICATIONS: Niaspan 100 mg p.o. daily, Questran 1/2 scoop 3 times a day if needed for diarrhea, Levemir FlexPen 40 units subcu once daily, Xarelto 15 mg p.o. daily, nitrofurantoin 100 mg p.o. daily as prophylaxis for bladder infections, Lovaza 1 g 2 capsules twice daily, metformin 500 mg twice daily, allopurinol 3 mg daily for gout, Actos 50 mg once daily, metoprolol 50 mg in the morning and 100 mg at night, vitamin D 100 international units 2 daily, Welchol 3.75 g packets once daily, Tylenol p.r.n., Milk of Magnesia 40 mg as needed for constipation. ALLERGIES: He has no known medical allergies. FAMILY HISTORY: His father of bladder cancer. He has a history of bladder cancer, which is resolved. Mother with melanoma and stomach cancer. He has a brother, who with melanoma. SOCIAL HISTORY: He is a nonsmoker. He is , has grown children and grandchildren. He is a former smoker. PHYSICAL EXAMINATION: GENERAL: The patient looks mildly ill, 86-year-old, who is appropriate for stated age. VITAL SIGNS: Blood pressure 142/80, weight 184 pounds, temperature of 100.8, pulse 78 per minute, respirations 16, oxygen 90% on room air. HEENT: Pupils equal and reactive. He has a bandage over his forehead, where he had a squamous cell carcinoma removed by Mohs surgery. HEART : Regular rate and rhythm. LUNGS: Reveals diminished breath sounds in the bases with bibasilar rales, some dullness in the left base, and some increased tubular breath sounds, especially in the left base. ABDOMEN: Nontender. EXTREMITIES: He has trace ankle edema. He moves all extremities well. IMPRESSION: Fever, probable pneumonia. PLAN: As he has a history of going into atrial flutter when he is sick with a rapid ventricular rate, I will admit him, get a culture, empirically place on antibiotics. /[id number]/MODL MTDD
[2016-11-01] MEDS ORDERED: ONDANSETRON DISINTEGRATING 4 MG TAB PO PRN (17:04)
[2016-11-01] MEDS ORDERED: ACETAMINOPHEN 325 MG TAB PO PRN (17:04)
[2016-11-01] MEDS ORDERED: ONDANSETRON 4 MG/2 ML VIAL IVP PRN (17:04)
[2016-11-01] MEDS ORDERED: NS 1,000 ML IV SCH (17:15)
[2016-11-01 17:52] LABS: % IMMATURE GRANULYOCYTES 0.3 % (0.0-1.1); ABSOLUTE IMMATURE GRANULOCYTES 0.03 10^3/uL (0.00-0.10); ADD DIFF? NO; ADD MORPH? NO; ADD SCAN? NO; ATYPICAL LYMPHOCYTE FLAG 0 (0-99); FRAGMENT RBC FLAG 0 (0-99); HEMATOCRIT 44.3 % (40.0-51.0); HEMOGLOBIN 15.3 g/dL (13.7-17.5); LEFT SHIFT FLG 0 (0-99); LIPEMIA HEMOLYSIS FLAG 90 (0-99); MEAN CELL HEMOGLOBIN 29.9 pg (27.9-34.1); MEAN CELL HEMOGLOBIN CONCENTR. 34.5 g/dL (32.4-36.7); MEAN CELL VOLUME 86.5 fL (81.5-99.8); MEAN PLATELET VOLUME 9.4 fL (8.7-11.7); PLATELET CLUMPS FLAG 0 (0-99); PLATELET COUNT 183 10^3/uL (150-400); RED BLOOD CELL COUNT 5.12 10^6/uL (4.40-6.38); RED CELL DISTRIBUTION WIDTH 16.3 % (11.5-15.2)
[2016-11-01 18:12] LABS: COLOR AMBER; LEUKOCYTE ESTERASE,URINE TRACE (NEGATIVE); NITRITE,URINE NEGATIVE (NEGATIVE)
[2016-11-01 18:21] LABS: MUCUS 3+ /lpf (NONE-1+)
[2016-11-01 18:28] LABS: ANION GAP 12 mEq/L (8-16); CALCIUM 10.1 mg/dL (8.5-10.4); CARBON DIOXIDE 21 mEq/l (22-31); CHLORIDE 98 mEq/L (97-110); CREATININE 0.7 mg/dL (0.7-1.3); GLOMERULAR FILTRATION RATE > 60; GLUCOSE 93 mg/dL (70-100); POTASSIUM 3.8 mEq/L (3.5-5.2); SODIUM 131 mEq/L (134-144)
[2016-11-01] MEDS: AZITHROMYCIN IV 500 MG in D5W 250 ML IV SCH (18:30)
[2016-11-01] MEDS ORDERED: METOPROLOL TARTRATE 50 MG TAB PO SCH (21:00)
[2016-11-01] MEDS ORDERED: NIACIN ER 1000 MG TAB.ER PO SCH (21:00)
[2016-11-01] MEDS: PRESERVISION AREDS2 FORMULA EYE VIT 1 EACH PO SCH (22:36)
[2016-11-02 04:54] LABS: % IMMATURE GRANULYOCYTES 0.3 % (0.0-1.1); ABSOLUTE IMMATURE GRANULOCYTES 0.02 10^3/uL (0.00-0.10); ADD DIFF? NO; ADD MORPH? NO; ADD SCAN? NO; ATYPICAL LYMPHOCYTE FLAG 20 (0-99); FRAGMENT RBC FLAG 30 (0-99); HEMATOCRIT 39.8 % (40.0-51.0); HEMOGLOBIN 13.7 g/dL (13.7-17.5); LEFT SHIFT FLG 0 (0-99); LIPEMIA HEMOLYSIS FLAG 90 (0-99); MEAN CELL HEMOGLOBIN 29.7 pg (27.9-34.1); MEAN CELL HEMOGLOBIN CONCENTR. 34.4 g/dL (32.4-36.7); MEAN CELL VOLUME 86.3 fL (81.5-99.8); MEAN PLATELET VOLUME 10.4 fL (8.7-11.7); PLATELET CLUMPS FLAG 0 (0-99); PLATELET COUNT 166 10^3/uL (150-400); RED BLOOD CELL COUNT 4.61 10^6/uL (4.40-6.38); RED CELL DISTRIBUTION WIDTH 16.4 % (11.5-15.2)
[2016-11-02 05:07] LABS: ANION GAP 12 mEq/L (8-16); CALCIUM 9.2 mg/dL (8.5-10.4); CARBON DIOXIDE 22 mEq/l (22-31); CHLORIDE 101 mEq/L (97-110); CREATININE 0.6 mg/dL (0.7-1.3); GLOMERULAR FILTRATION RATE > 60; GLUCOSE 109 mg/dL (70-100); POTASSIUM 3.8 mEq/L (3.5-5.2); SODIUM 135 mEq/L (134-144)
[2016-11-02] MEDS: PRESERVISION AREDS2 FORMULA EYE VIT 1 EACH PO SCH (07:47)
[2016-11-02 08:20] VITALS: BP 134/68; PULSE 62; RESP 20; TEMP 98.2; O2SAT 93
--- NOTE | 2016-11-02 08:26 | SOAPPROG ---
SOAP Progress Note Assessment/Plan: Assessment: 86 yo male admitted yesterday with suspected pneumonia. Cxr without evidence of infiltrates. WBC count improved on azithromycin and ceftriaxone. Afebrile over night and feeling much better today. Plan: Work with PT this morning and if still feeling well this afternoon will likely discharge home today. H/o paroxysmal afib/flutter with rvr- SR on tele over night, will d/c tele monitoring H/o recurrent UTI- UA clear Abdominal aortic aneurysm- stable, being monitored outpt T2DM- ACHS blood sugar checks, stable Elevated coronary calcium score- without chest pain/pressure, stable on tele over night, monitored outpt, continue outpt med regimen Squamous cell carcinoma of the skin- s/p Mohs procedure to forehead and right upper back. Dressing changed to right upper back this AM- stable. Will f/u oupt. 11/02/16 08:27 Subjective: Carroll is resting comfortably in bed this morning. Says he is feeling better- no chills over night. Eager to eat breakfast and work with PT this morning. Objective: Vital Signs Temp Pulse Resp BP Pulse Ox 98.2 F 62 20 134/68 H 93 11/02/16 08:00 11/02/16 08:00 11/02/16 08:00 11/02/16 08:00 11/02/16 08:00 Laboratory Results 11/02/16 04:26 11/02/16 04:26 11/01/16 11/02/16 11/03/16 05:59 05:59 05:59 Intake Total 50 Output Total 50 Balance 0 Gen- AAOx3, vitals stable over night, afebrile Head- normocephalic, atraumatic CV- RRR, no murmur, rubs, gallops Resp- Lungs with mild rhonchi cleared with cough, good air movement Abd- Soft, nontender Skin- Mohs site to forehead and upper back- dressing changed to right upper back Neuro- grossly intact Psych- normal mentation, mood, affect ICD10 Worksheet Patient Problems: Problems Problem Status Onset Atrial fibrillation and flutter Acute Cellulitis of right leg Acute Epididymitis Acute Fever and chills Acute Orchitis Acute Pneumonia Acute Pneumonia due to aerobic bacteria Acute UTI (urinary tract infection) Acute
[2016-11-02] MEDS ORDERED: INSULIN DETEMIR 36 UNIT SQ SCH (09:00)
[2016-11-02] MEDS ORDERED: OMEGA-3 FATTY ACIDS 1,000 MG CAP PO SCH (09:00)
[2016-11-02] MEDS ORDERED: METOPROLOL TARTRATE 50 MG TAB PO SCH (09:00)
[2016-11-02] MEDS ORDERED: RIVAROXABAN 15 MG TAB PO SCH (09:00)
[2016-11-02] MEDS ORDERED: ALLOPURINOL 300 MG TAB PO SCH (09:00)
[2016-11-02] MEDS ORDERED: CHOLECALCIFEROL VIT D3 2,000 UNITS TAB/CAP PO SCH (09:00)
[2016-11-02] MEDS ORDERED: PIOGLITAZONE HCL 15 MG TAB PO SCH (09:00)
[2016-11-02] MEDS ORDERED: Herbals/Supplements -Info Only PO SCH (09:00)
[2016-11-02] MEDS ORDERED: metFORMIN HCL 500 MG TAB PO SCH (09:00)
[2016-11-02] MEDS ORDERED: ASPIRIN 81 MG CHEWABLE TAB PO SCH (09:00)
[2016-11-02] MEDS ORDERED: NITROFURANTOIN 50 MG CAP PO SCH (09:00)
[2016-11-02] MEDS: AZITHROMYCIN IV 500 MG in D5W 250 ML IV SCH (09:07)
== END 2016-11-02 12:50 | disposition home or self-care (01) | DRG 194 ==
LOC: F3E 16:55 → OBSVTOIN 16:59
PROVIDERS: ADMIT Internal Medicine; ATTEND Internal Medicine
DX: J18.9 Pneumonia, unspecified organism (principal); I48.92 Unspecified atrial flutter; I71.4 Abdominal aortic aneurysm, without rupture; E11.9 Type 2 diabetes mellitus without complications; Z85.46 Personal history of malignant neoplasm of prostate; Z85.820 Personal history of malignant melanoma of skin; Z80.52 Family history of malignant neoplasm of bladder; Z80.0 Family history of malignant neoplasm of digestive organs
CPT/HCPCS: 97161-GP; 97165-GO; G8978-GP-CI; G8979-GP-CI; G8980-GP-CI; G8987-GO-CI; G8988-GO-CI; G8989-GO-CI; J0456; J0696

== ENCOUNTER 2016-11-16 00:47 | Inpatient (IN) | payer OTHER ==
[2016-11-16 01:22] LABS: ANION GAP 15 mEq/L (8-16); CALCIUM 10.1 mg/dL (8.5-10.4); CARBON DIOXIDE 19 mEq/l (22-31); CHLORIDE 96 mEq/L (97-110); CREATININE 0.7 mg/dL (0.7-1.3); GLOMERULAR FILTRATION RATE > 60; GLUCOSE 302 mg/dL (70-100); POTASSIUM 4.1 mEq/L (3.5-5.2); SODIUM 130 mEq/L (134-144)
[2016-11-16] MEDS ORDERED: ACETAMINOPHEN 500 MG TAB PO ONE (01:22)
[2016-11-16] MEDS ORDERED: NS 1,000 ML IV ONE ×3 (01:22→02:19)
[2016-11-16 01:24] LABS: ADD DIFF? NO; ADD MORPH? NO; ADD SCAN? NO; ATYPICAL LYMPHOCYTE FLAG 0 (0-99); FRAGMENT RBC FLAG 0 (0-99); HEMATOCRIT 44.4 % (40.0-51.0); HEMOGLOBIN 15.5 g/dL (13.7-17.5); LEFT SHIFT FLG 10 (0-99); LIPEMIA HEMOLYSIS FLAG 90 (0-99); MEAN CELL HEMOGLOBIN 30.2 pg (27.9-34.1); MEAN CELL HEMOGLOBIN CONCENTR. 34.9 g/dL (32.4-36.7); MEAN CELL VOLUME 86.5 fL (81.5-99.8); MEAN PLATELET VOLUME 10.5 fL (8.7-11.7); PLATELET CLUMPS FLAG 10 (0-99); PLATELET COUNT 221 10^3/uL (150-400); RED BLOOD CELL COUNT 5.13 10^6/uL (4.40-6.38); RED CELL DISTRIBUTION WIDTH 16.5 % (11.5-15.2)
[2016-11-16 01:38] LABS: APTT 31.4 SEC (23.0-38.0); INR 1.98 (0.83-1.16); PROTIME(PATIENT) 22.6 SEC (12.0-15.0)
[2016-11-16 01:40] LABS: BILIRUBIN,TOTAL 1.5 mg/dL (0.1-1.4)
[2016-11-16] MEDS ORDERED: CEFTRIAXONE 1 GM/DEXTROSE/50 ML BAG IV ONE (01:57)
[2016-11-16] MEDS ORDERED: IBUPROFEN 600 MG TAB PO ONE ×2 (02:14→02:15)
[2016-11-16 02:24] LABS: LACGHOST ORDER
--- NOTE | 2016-11-16 02:39 | EDPHY ---
H & P Stated Complaint: L SHOULDER PAIN AND L EAR PAIN Time Seen by Provider: 11/16/16 01:09 HPI/ROS: HPI The patient presents with fever and shaking chills which began at about 4:00 p.m. today. This is associated with generalized fatigue. He was unable to walk tonight with his walker and thus 911 was called to bring the patient here. For the last 3 days he has had left shoulder pain, left-sided ear and neck pain. He saw his primary care doctor who thought his shoulder pain could be related to gout and started him on prednisone. He has had no prior history of gout. He also reports having a mild cough with some sneezing for the last 3 days. He has a history of sepsis related to urinary tract infection and pneumonia. He was last admitted to the hospital in July for this. He is followed by Dr. Ramos.. REVIEW OF SYSTEMS Constitutional: Fevers are present Eyes: No discharge. ENT: No sore throat. Cardiovascular: No chest pain, no palpitations. Respiratory: + cough, no shortness of breath. Gastrointestinal: No abdominal pain, no vomiting. Genitourinary: No hematuria. Musculoskeletal: No back pain. Skin: No rashes. Neurological: No headache. PMHx: Atrial fibrillation, diabetes, known AAA Soc Hx: Lives at home with PHYSICAL General Appearance: Tired appearing Eyes: Pupils equal and round no pallor or injection ENT, Mouth: Mucous membranes dry, left-sided lymphadenopathy with tenderness, skin is slightly erythematous Respiratory: There are no retractions, there are crackles at the bases Cardiovascular: Tachycardic rate with regular rhythm Gastrointestinal: Abdomen is soft and non-tender, no masses, bowel sounds normal Neurological: A&O, moves all extremities Skin: Warm and dry, no rashes Musculoskeletal: Neck is supple non tender Extremities: Left shoulder has normal range of motion except for extension which causes pain, there is no effusion Psychiatric: Patient is oriented X 3, there is no agitation Source: Patient, Family Exam Limitations: No limitations - Personal History Current Tetanus/Diphtheria Vaccine: Yes Current Tetanus Diphtheria and Acellular Pertussis (TDAP): Yes - Medical/Surgical History Hx Asthma: No Hx Chronic Respiratory Disease: No Hx Diabetes: Yes Hx Cardiac Disease: Yes Hx Renal Disease: No Hx Cirrhosis: No Hx Alcoholism: No Hx HIV/AIDS: No Hx Splenectomy or Spleen Trauma: No Other PMH: Afib/Aflutter, DM2, high cholesterol,HTN, bladder CA, kidney stones, prostate CA, small aortic aneurysm, R total hip - Social History Smoking Status: Former smoker Constitutional: Initial Vital Signs Temperature (C) 38.9 C H 11/16/16 00:50 Heart Rate 88 11/16/16 00:50 Respiratory Rate 18 11/16/16 00:50 Blood Pressure 179/83 H 11/16/16 00:50 O2 Sat (%) 89 L 11/16/16 00:50 O2 Delivery Mode Nasal Cannula O2 (L/minute) 2 Allergies/Adverse Reactions: No Allergies [NKDA] Allergy (Verified 11/16/16 01:04) Home Medications: Medication Instructions Recorded Allopurinol [Allopurinol 300 MG 300 mg PO DAILY 11/01/16 (RX)] Aspirin [Aspirin 81mg (*)] 81 mg PO DAILY 11/01/16 C/E/Zn/Cu/OM3/DHA/EPA/LUT/ZEAX 1 each PO BID 11/01/16 [Preservision Areds 2 Softgel] Cholecalciferol Vit D3 [Vitamin D3 2,000 units PO DAILY 11/01/16 (*)] Herbals/Supplements -Info Only 1 ea PO DAILY 11/01/16 Insulin Detemir [Levemir] 36 unit SQ DAILY 11/01/16 Metoprolol Tartrate [Lopressor 50 50 mg PO DAILY 11/01/16 mg (*)] Metoprolol Tartrate [Lopressor 50 100 mg PO HS 11/01/16 mg (*)] Niacin ER [Niaspan 1000 mg (*)] 1,000 mg PO HS 11/01/16 Nitrofurantoin Macrocrystal 100 mg PO DAILY 11/01/16 [Nitrofurantoin] Dix-3 Fatty Acids/Fish Oil 2 each PO BID 11/01/16 [Dix 3 1,000 mg Softgel] Pioglitazone HCl [Actos 15mg (*)] 15 mg PO DAILY 11/01/16 Rivaroxaban [Xarelto 15mg (*)] 15 mg PO DAILY 11/01/16 metFORMIN HCL [Metformin HCl] 500 mg PO DAILY 11/01/16 Medical Decision Making - Diagnostics Imaging Results: Chest x-ray one view shows cardiomegaly, possible left lower lobe infiltrate, interpreted by me, radiology interpretation is pending. Imaging: I viewed and interpreted images myself Differential Diagnosis: This is an 86-year-old male with multiple medical problems including atrial fibrillation, diabetes, frequent sepsis who presents from home with a few days of left-sided shoulder pain thought to be related to gout, mild cough, now with fever and chills. He has been on prednisone for the last several days. On exam , he is febrile, tachycardic, blood pressure is stable. Differential diagnosis includes sepsis due to pneumonia, sepsis due to urinary tract infection, sepsis related to shoulder joint infection less likely. He does have some fullness of his left neck which I suspect is due to adenopathy. I doubt meningitis. In the emergency department, the patient received a 30 cc/kilos bolus of IV fluids and a dose of ceftriaxone with azithromycin for presumed community- acquired pneumonia. Labs revealed a profound leukocytosis, elevated lactate, possible pneumonia on chest x-ray. Repeat lactate had gone from 2.9-2.1. Blood pressures remained stable, so I do not believe the patient requires a central line. UA was not obtained in the ER. I consulted with the doctor on-call for Dr. Ramos, Dr. Puentes. She will admit the patient to the step-down unit. Critical Care Time: CRITICAL CARE Critical care time spent by me, Dr. Chu, exclusively with this patient was 60 minutes, exclusive of PA time and exclusive of procedures. The organ system at risk was cardiac and I gave IV fluids, IV antibiotics, transfer the patient to the step-down unit. to prevent worsening of the patients condition. - Data Points Laboratory Results: Laboratory Results 11/16/16 00:53 11/16/16 00:53 11/16/16 11/16/16 11/16/16 03:05 01:02 00:55 WBC RBC Hgb Hct MCV MCH MCHC RDW Plt Count MPV Neut % (Auto) Lymph % (Auto) [place] % (Auto) Eos % (Auto) Baso % (Auto) Nucleat RBC Rel Count Absolute Neuts (auto) Absolute Lymphs (auto) Absolute Monos (auto) Absolute Eos (auto) Absolute Basos (auto) Absolute Nucleated RBC Immature Gran % Immature Gran # PT 22.6 SEC H SEC (12.0-15.0) INR 1.98 H (0.83-1.16) APTT 31.4 SEC SEC (23.0-38.0) VBG Lactic Acid 2.1 mmol/L mmol/L 2.9 mmol/L H mmol/L (0.7-2.1) (0.7-2.1) Sodium Potassium Chloride Carbon Dioxide Anion Gap BUN Creatinine Estimated GFR Glucose Calcium Total Bilirubin 11/16/16 11/16/16 00:53 00:53 WBC 28.63 10^3/uL H D 10^3/uL (3.80-9.50) RBC 5.13 10^6/uL 10^6/uL (4.40-6.38) Hgb 15.5 g/dL g/dL (13.7-17.5) Hct 44.4 % % (40.0-51.0) MCV 86.5 fL fL (81.5-99.8) MCH 30.2 pg pg (27.9-34.1) MCHC 34.9 g/dL g/dL (32.4-36.7) RDW 16.5 % H % (11.5-15.2) Plt Count 221 10^3/uL 10^3/uL (150-400) MPV 10.5 fL fL (8.7-11.7) Neut % (Auto) 90.4 % H % (39.3-74.2) Lymph % (Auto) 2.8 % L % (15.0-45.0) [place] % (Auto) 5.6 % % (4.5-13.0) Eos % (Auto) 0.0 % L % (0.6-7.6) Baso % (Auto) 0.2 % L % (0.3-1.7) Nucleat RBC Rel Count 0.0 % % (0.0-0.2) Absolute Neuts (auto) 25.87 10^3/uL H 10^3/uL (1.70-6.50) Absolute Lymphs (auto) 0.79 10^3/uL L 10^3/uL (1.00-3.00) Absolute Monos (auto) 1.60 10^3/uL H 10^3/uL (0.30-0.80) Absolute Eos (auto) 0.00 10^3/uL L 10^3/uL (0.03-0.40) Absolute Basos (auto) 0.07 10^3/uL 10^3/uL (0.02-0.10) Absolute Nucleated RBC 0.00 10^3/uL 10^3/uL (0-0.01) Immature Gran % 1.0 % % (0.0-1.1) Immature Gran # 0.30 10^3/uL H 10^3/uL (0.00-0.10) PT INR APTT VBG Lactic Acid Sodium 130 mEq/L L mEq/L (134-144) Potassium 4.1 mEq/L mEq/L (3.5-5.2) Chloride 96 mEq/L L mEq/L (97-110) Carbon Dioxide 19 mEq/l L mEq/l (22-31) Anion Gap 15 mEq/L mEq/L (8-16) BUN 29 mg/dL H mg/dL (7-23) Creatinine 0.7 mg/dL mg/dL (0.7-1.3) Estimated GFR > 60 Glucose 302 mg/dL H mg/dL (70-100) Calcium 10.1 mg/dL mg/dL (8.5-10.4) Total Bilirubin 1.5 mg/dL H mg/dL (0.1-1.4) Microbiology Results: MICROBIOLOGY 11/16/16 01:02 Blood Blood Culture - Preliminary Medications Given: Sodium Chloride (Ns) 2,500 mls @ 416.6666 mls/hr 30 ml/kg infuse over 6 hr ( 2500 ml) IV EDNOW ONE PRN Reason: Protocol Stop: 11/16/16 08:40 Last Admin: 11/16/16 02:43 Dose: 2,500 mls Sodium Chloride (Ns) 1,000 mls @ 150 mls/hr IV CONT SHANICE Stop: 05/15/17 04:59 Last Admin: 11/16/16 05:06 Dose: 1,000 mls Discontinued Medications Acetaminophen (Tylenol) 1,000 mg PO EDNOW ONE Stop: 11/16/16 01:23 Last Admin: 11/16/16 01:27 Dose: 1,000 mg Azithromycin (Zithromax) 500 mg PO ONCE ONE PRN Reason: Protocol Stop: 11/16/16 03:53 Last Admin: 11/16/16 03:56 Dose: 500 mg Sodium Chloride (Ns) 1,000 mls @ 0 mls/hr IV EDNOW ONE; Wide Open PRN Reason: Protocol Stop: 11/16/16 01:23 Last Admin: 11/16/16 01:27 Dose: 1,000 mls Ceftriaxone Sodium/Dextrose (Rocephin 1 Gm (Premix)) 50 mls @ 100 mls/hr IV EDNOW ONE PRN Reason: Protocol Stop: 11/16/16 02:29 Last Admin: 11/16/16 02:01 Dose: 50 mls Sodium Chloride (Ns) 1,000 mls @ 0 mls/hr IV ONCE ONE PRN Reason: Wide Open Stop: 11/16/16 01:51 Last Admin: 11/16/16 01:50 Dose: 1,000 mls Sodium Chloride (Ns) 1,000 mls @ 0 mls/hr IV ONCE ONE PRN Reason: Wide Open Stop: 11/16/16 02:20 Last Admin: 11/16/16 02:21 Dose: 1,000 mls Azithromycin 500 mg/ Dextrose 255 mls @ 255 mls/hr IV EDNOW ONE PRN Reason: Protocol Stop: 11/16/16 04:39 Last Admin: 11/16/16 05:10 Dose: Not Given Ibuprofen (Motrin) 600 mg PO EDNOW ONE Stop: 11/16/16 02:16 Last Admin: 11/16/16 02:19 Dose: 600 mg Departure - Departure Disposition: [facility] Inpatient Acute Clinical Impression: Pneumonia Qualifiers: Pneumonia type: due to unspecified organism Laterality: left Lung location: unspecified part of lung Qualified Code(s): J18.9 - Pneumonia, unspecified organism Sepsis Qualifiers: Sepsis type: sepsis due to unspecified organism Qualified Code(s): A41.9 - Sepsis, unspecified organism Condition: Critical
[2016-11-16] MEDS ORDERED: NS 2,500 ML IV ONE (02:41)
--- NOTE | 2016-11-16 03:01 | CPEKG ---
Heart Rate: 133 RR Interval: 451 QRSD Interval: 80 QT Interval: 336 QTC Interval: 500 QRS Kemp: 49 T Wave Kemp: 12 EKG Severity - ABNORMAL ECG - EKG Impression: ATRIAL FIBRILLATION EKG Impression: BORDERLINE PROLONGED QT INTERVAL Electronically Signed By: Liseth Chu 16-Nov-2016 08:44:44
[2016-11-16] MEDS ORDERED: AZITHROMYCIN IV 500 MG in D5W 250 ML IV ONE (03:40)
[2016-11-16] MEDS ORDERED: AZITHROMYCIN 250 MG TAB PO ONE ×2 (03:47→03:52)
[2016-11-16] MEDS ORDERED: NS 1,000 ML IV SCH ×2 (05:00→08:30)
--- NOTE | 2016-11-16 05:20 | SOAPPROG ---
SOAP Progress Note Assessment/Plan: Assessment: Plan: 11/16/16 05:35 Sepsis: febrile illness, possibly pneumonia vs urosepsis. Blood cx pending, no UA yet. CXR not that remarkable. Limited view, and he was dry on admission. O2 sat initially somewhat low on 2L, better now. Initially hypertensive on arrival in ED, now mildly hypotensive after 3L NS. Lactic acid better at 2.1. Ceftriaxone, azithromycin started. Markedly elevated WBC, likely partly related to recent prednisone use. WBC was mildly elevated when seen in the office on . Will continue fluids, recheck CXR, continue antibx. Atrial fibrillation: rate currently fairly well-controlled. On metoprolol, so will continue, monitoring BP. On Xarelto. CAD: elevated coronary calcium, with Agatston score of 1978, but stable. No chest pain. Will continue lovaza, welchol, niacin Diabetes: elevated blood sugars, at least partly related to prednisone. Will continue Levemir, metformin, actos L shoulder pain: etiology unclear. Recent uric acid level normal. On allopurinol. Pain much improved with prednisone. Will continue. DVT prophylaxis: on Xarelto Skin breakdown over buttocks: will have wound care see him Dispo: admitted to ICU. Expect he will be here more than 2 nights. 11/16/16 05:53 11/16/16 05:58 11/16/16 06:30 Subjective: 86 yo male with multiple medical problems who developed severe L shoulder pain a few days ago. Had been occurring off and on for a month, but then became acutely worse, and he wasn't able to move it. Was seen by Dr. Ramos in the office on 11/13/16. Was started on prednisone 20mg daily for presumed gout. Pain is much better and he has been able to sleep. He has felt quite weak. Then, earlier today, he was noted to be less coherent. He doesn't remember this. Per ED report, he developed fever and chills and was subsequently brought to the ED by ambulance. He's had a mild, dry cough and sneezing for 3 days, but hasn't felt bad. No fever, chills until yesterday afternoon. He's had some L ear and neck pain as well. He has a hx of urosepsis, and was admitted in July for this. In the ED, he was febrile with a temperature of 38.9. BP was 179/83, HR 88. O2 saturation 89% on 2L. WBC was elevated at 28.6 with 90.4% neutrophils. Initial lactic acid was high at 2.9. Repeat level 2.1. Na 130, K 4.1, BUN 29, Cr 0.7, gluc 302. PA CXR shows possible L sided infiltrate. EKG with atrial fibrillation. He received 3L NS in the ED and was given ceftriaxone 1 g IV and azithromycin 500mg PO for possible community acquired pneumonia, and admitted to ICU. Blood cx are pending. He hasn't been able to void yet. Objective: Vital Signs Temp Pulse Resp BP Pulse Ox 37.1 C 98 21 H 99/58 L 95 11/16/16 04:41 11/16/16 05:00 11/16/16 04:58 11/16/16 05:00 11/16/16 04:58 11/14/16 11/15/16 11/16/16 05:59 05:59 05:59 Intake Total 3000 Balance 3000 PT 22.6 SEC (12.0-15.0) H 11/16/16 00:55 INR 1.98 (0.83-1.16) H 11/16/16 00:55 General: tired but arouses easily, pleasant, appropriate HEENT: NC/AT. Multiple skin lesions. PERRL. EOMI. O/P dry. Crusted lesions behind L ear, mildly tender Neck: supple, no carotid bruits Lungs: breathing comfortably, faint rales L mid-lung, bases Cardiovascular: irregularly irregular Abdomen: +bowel sounds, soft, NT. No hepatosplenomegaly, masses Extremities: no clubbing, cyanosis, edema Neurologic: moving all extremities Psych: alert, pleasant, no confusion ICD10 Worksheet Patient Problems: Problems Problem Status Onset Atrial fibrillation and flutter Acute Cellulitis of right leg Acute Epididymitis Acute Fever and chills Acute Orchitis Acute Pneumonia Acute Pneumonia due to aerobic bacteria Acute UTI (urinary tract infection) Acute
[2016-11-16] MEDS ORDERED: ONDANSETRON DISINTEGRATING 4 MG TAB PO PRN (06:00)
[2016-11-16] MEDS ORDERED: ONDANSETRON 4 MG/2 ML VIAL IVP PRN (06:00)
[2016-11-16] MEDS ORDERED: D50W 25 GM/50 ML SYR IVP PRN ×2 (06:00→08:24)
[2016-11-16] MEDS ORDERED: MAGNESIUM HYDROXIDE 30 ML UDCUP PO PRN (06:00)
[2016-11-16] MEDS ORDERED: LACTULOSE 20 GM/30 ML UDCUP PO PRN (06:00)
[2016-11-16] MEDS ORDERED: POLYETHYLENE GLYCOL 3350 17 GM PKT PO PRN (06:00)
[2016-11-16] MEDS ORDERED: BISACODYL 10 MG SUPP PR PRN (06:00)
[2016-11-16 06:36] LABS: ADD DIFF? YES; ADD MORPH? NO; ADD SCAN? YES; ATYPICAL LYMPHOCYTE FLAG 0 (0-99); FRAGMENT RBC FLAG 0 (0-99); HEMATOCRIT 38.6 % (40.0-51.0); HEMOGLOBIN 13.3 g/dL (13.7-17.5); LEFT SHIFT FLG 20 (0-99); LIPEMIA HEMOLYSIS FLAG 90 (0-99); MEAN CELL HEMOGLOBIN 30.2 pg (27.9-34.1); MEAN CELL HEMOGLOBIN CONCENTR. 34.5 g/dL (32.4-36.7); MEAN CELL VOLUME 87.5 fL (81.5-99.8); MEAN PLATELET VOLUME 10.6 fL (8.7-11.7); PLATELET CLUMPS FLAG 0 (0-99); PLATELET COUNT 185 10^3/uL (150-400); RED BLOOD CELL COUNT 4.41 10^6/uL (4.40-6.38); RED CELL DISTRIBUTION WIDTH 16.8 % (11.5-15.2)
[2016-11-16 07:02] LABS: ALANINE AMINOTRANSFERASE 58 IU/L (21-72); ALBUMIN 2.6 g/dL (3.5-5.0); ALKALINE PHOSPHATASE 100 IU/L (38-126); ANION GAP 10 mEq/L (8-16); ASPARTATE AMINOTRANSFERASE 66 IU/L (17-59); BILIRUBIN,TOTAL 1.5 mg/dL (0.1-1.4); CALCIUM 8.5 mg/dL (8.5-10.4); CARBON DIOXIDE 19 mEq/l (22-31); CHLORIDE 101 mEq/L (97-110); CREATININE 0.8 mg/dL (0.7-1.3); GLOMERULAR FILTRATION RATE > 60; GLUCOSE 285 mg/dL (70-100); POTASSIUM 4.6 mEq/L (3.5-5.2); SODIUM 130 mEq/L (134-144); TOTAL PROTEIN 5.3 g/dL (6.3-8.2)
--- NOTE | 2016-11-16 07:23 | GHP ---
[f rep st] HISTORY AND PHYSICAL DATE OF ADMISSION: 11/16/2016 HISTORY OF PRESENT ILLNESS: The patient is an 86-year-old male with a history of multiple medical problems, who developed severe left shoulder pain a few days ago. It had been occurring off and on for a month but then became acutely worse and he was not able to move his shoulder. He was seen by Dr. Ramos in the office on 11/13/2016. He was started on prednisone 20 mg daily for presumed gout. His pain is much better and he has been able to sleep. He has felt quite weak. Earlier today he was noted by family members to be less coherent, although he himself does not remember this. Per emergency department report he developed fever and chills and was subsequently brought to the emergency department via ambulance. He states that he has had a mild dry cough and sneezing for 3 days but has not felt bad. He has not noted any fever and chills until yesterday afternoon. He has had some left ear and neck pain as well. He does have a history of urosepsis and was admitted to the hospital in July of this year for that. In the emergency department he is febrile with a temperature of 38.9, blood pressure is 179/3, and heart rate is 88. His O2 saturations were 89% on 2 L. His white blood cell count is elevated at 28.6, with 90.4% neutrophils. Initial lactic acid was high at 2.9, his repeat level is 2.1. Sodium 130, potassium 4.1, BUN 29, creatinine 0.7, glucose 302. PA chest x-ray shows a possible left-sided infiltrate. EKG shows atrial fibrillation. He received 3 L of normal saline in the emergency department and was given ceftriaxone 1 g IV and azithromycin 500 mg p.o. for possible community-acquired pneumonia and was admitted to the ICU. Blood cultures are pending. He has not been able to void yet. PAST MEDICAL HISTORY: Significant for; 1. Diabetes. 2. Bladder cancer. 3. Degenerative disc disease. 4. Kidney stones. 5. Melanoma. 6. Prostate cancer. 7. Small stable aortic aneurysm. 8. 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 10. Coronary artery disease, with a coronary calcium Agatston score of 1,978, which was stable in April of 2016. 11. Venous stasis. 12. Atrial fibrillation/flutter. 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 MEDICATIONS: 1. Niaspan 1000 mg daily. 2. Lamisil 250 mg daily. 3. Questran 4 g per dose 1/2 to 1 scoop 3 times a day as needed for diarrhea. 4. Levemir FlexPen 100 units/ml, 40 units subcu daily. 5. Xarelto 15 mg daily. 6. Nitrofurantoin 100 mg daily. 7. Lovaza 1 g 2 capsules twice a day. 8. Metformin 500 mg twice a day. 9. Allopurinol 300 mg daily. 10. Actos 15 mg daily. 11. Metoprolol tartrate 50 mg in the morning and 100 mg at night. 12. Aspirin 81 mg daily. 13. Vitamin D 1000 international units daily. 14. Welchol 3.75 g packet with water once daily. 15. Tramadol 50 mg q.6 hours as needed. ALLERGIES: None. PAST SURGICAL HISTORY: 1. Melanoma removed in 2016. 2. Surgery for squamous cell carcinoma. FAMILY HISTORY: His father of bladder cancer. Brother of melanoma. Mother of stomach cancer. SOCIAL HISTORY: The patient is and lives with his . He is a nonsmoker. REVIEW OF SYSTEMS: IN GENERAL: He has been feeling weak and does not have much strength. HEENT: He has had some pain behind his left ear and some neck pain. No sore throat. Has had mild sneezing. RESPIRATORY: Dry cough. No shortness of breath. CARDIOVASCULAR: No chest pain or pressure or palpitations. ABDOMEN: No abdominal pain. No nausea, vomiting, diarrhea, or constipation. GENITOURINARY: No dysuria or hematuria. MUSCULOSKELETAL: Left shoulder pain. NEUROLOGIC: No headache or confusion. PHYSICAL EXAMINATION: VITAL SIGNS: Temperature 37.1, blood pressure 95/50, heart rate 98, respiratory rate 21. O2 saturation 95% on 2 L. IN GENERAL: He is tired but arouses easily. He is pleasant and appropriate. Answers questions appropriately. HEENT: Normocephalic, atraumatic. Multiple skin lesions. Pupils are equal, round, reactive to light. Extraocular movements are intact. Oropharynx is dry. There are crusted lesions behind his left ear and he is mildly tender to palpation there. NECK: Supple. No carotid bruits. LUNGS: Breathing comfortably. Faint rales left midlung and bases. CARDIOVASCULAR: Irregularly irregular. ABDOMEN: Normal bowel sounds. Soft, nontender. No masses. No hepatosplenomegaly or masses. EXTREMITIES: No clubbing, cyanosis, or edema. NEUROLOGIC: Moving all extremities. PSYCHIATRIC : He is alert, pleasant, without confusion. ASSESSMENT AND PLAN: 1. Sepsis: Febrile illness, possibly pneumonia versus urosepsis. Blood cultures are pending. No UA yet. Chest x-ray is not that remarkable but it is a limited view and he was dry on admission. O2 saturations initially somewhat low on 2 L but are better now. Initially hypertensive on arrival in the ED but now mildly hypotensive after 3 L normal saline. Lactic acid is better at 2.1 on followup. Ceftriaxone and azithromycin started. White blood cell count is markedly elevated which I suspect is at least partly related to recent prednisone use. His white blood cell count was mildly elevated when seen in the office on 11/13/2016. For now will continue fluids. Recheck a PA and lateral chest x-ray and continue antibiotics. 2. Atrial fibrillation. Rate is currently fairly well controlled. He is on metoprolol, so will continue with this monitoring blood pressure. We will continue Xarelto. 3. Coronary artery disease. He has an elevated coronary calcium with a negative Agatston score of 1,978, but this is stable on his recent heart scan. He has no current chest pain. 4. Diabetes. Blood sugars are elevated at least partly related to prednisone. Will continue Levemir, metformin and Actos. 5. Left shoulder pain, etiology currently unclear. His recent uric acid level was normal, though he has been on allopurinol. The pain is much improved with prednisone. 6. For now will plan on continuing prednisone. 7. DVT prophylaxis on Xarelto. DISPOSITION: The patient is admitted to the ICU, and expect he will be in the hospital for more than 2 nights. /[id number]/MODL MTDD
[2016-11-16 07:32] LABS: PLATELET ESTIMATE ADEQUATE (ADEQ)
[2016-11-16] MEDS ORDERED: INSULIN LISPRO 100 UNIT/ML SC ONE (08:30)
--- NOTE | 2016-11-16 08:33 | SOAPPROG ---
SOAP Progress Note Assessment/Plan: Assessment: Difficulty voiding. Possible sepsis, Lactate repeat was normal. Plan:Will place varela. Cont antibiotics and fluid resuscitation. Follow closely. 11/16/16 08:32 Subjective: Pt is still very weak, however L shoulder pain has resolved. Urine is still pending, he was incontinent last night. Objective: Vital Signs Temp Pulse Resp BP Pulse Ox 98.4 F 76 18 91/41 L 96 11/16/16 07:44 11/16/16 07:55 11/16/16 07:55 11/16/16 07:55 11/16/16 07:55 Laboratory Results 11/16/16 06:25 11/16/16 06:25 11/15/16 11/16/16 11/17/16 05:59 05:59 05:59 Intake Total 3000 162 Balance 3000 162 PT 22.6 SEC (12.0-15.0) H 11/16/16 00:55 INR 1.98 (0.83-1.16) H 11/16/16 00:55 Strength is symetric, Lungs with deminished breath sounds. Abd non-tender. ICD10 Worksheet Patient Problems: Problems Problem Status Onset Pneumonia Acute Sepsis Acute Atrial fibrillation and flutter Acute Cellulitis of right leg Acute Epididymitis Acute Fever and chills Acute Orchitis Acute Pneumonia due to aerobic bacteria Acute UTI (urinary tract infection) Acute
[2016-11-16] MEDS ORDERED: INSULIN DETEMIR 36 UNIT SQ SCH (09:00)
[2016-11-16] MEDS ORDERED: FISH OIL PO SCH (09:00)
[2016-11-16] MEDS ORDERED: FATTY ACIDS PO SCH (09:00)
[2016-11-16] MEDS ORDERED: OMEGA PO SCH (09:00)
[2016-11-16 09:08] LABS: COLOR YELLOW; LEUKOCYTE ESTERASE,URINE NEGATIVE (NEGATIVE); NITRITE,URINE NEGATIVE (NEGATIVE)
[2016-11-16 09:11] LABS: MUCUS 1+ /lpf (NONE-1+)
[2016-11-16] MEDS ORDERED: D10W 250 ML PRN HYPOGLYCEMIA IV (09:30)
--- NOTE | 2016-11-16 09:58 | WOCRNPDOC ---
WOCRN Advanced Assessment Note - Skin Integrity Problem, Advanced Assess Coccyx Dressing Type: Open to Air Exudate Amount: None Exudate Characteristic(s): None Integumentary Issue Intervention: Barrier Cream Applied (Calazime to be applied by nursing) Piper Wound Tissue: Blanching, Macerated, Intact Piper Wound Swelling: Mild Wound Bed Color: Red Site Odor: None Site Measurement - Head-to-Toe Length X Width X Depth (cm): 0.3cmx0.1cmx0.1cm Skin Integrity Problem Comment: Small linear fissure noted over coccyx, appearance consistent w/ intertriginous dermatitis r/t moisture. Skin is blanching throughout coccyx and gluteal cleft, but it is also fragile with maceration observed. This is concerning for additional breakdown and development of a pressure injury. Will initiate pressure-relieving interventions , including turns, calazime barrier cream, and specialty bed. Also recommending that patient is kept brief free to alleviate mositure exposure and heat to area. Please use 1 layer of wicking, disposable chux under patient. Wound care will follow up with patient on Thursday 11/23.
[2016-11-16] MEDS: SENNOSIDES/DOCUSATE SODIUM TAB PO SCH ×2 (11:20→21:06)
[2016-11-16] MEDS: PRESERVISION AREDS2 FORMULA EYE VIT 1 EACH PO SCH ×2 (11:20→21:07)
[2016-11-16] MEDS: ASPIRIN 81 MG CHEWABLE TAB PO SCH (11:20)
[2016-11-16] MEDS: CHOLECALCIFEROL VIT D3 1,000 UNITS TAB PO SCH (11:20)
[2016-11-16] MEDS: ALLOPURINOL 300 MG TAB PO SCH (11:21)
[2016-11-16] MEDS: OMEGA-3 FATTY ACIDS 1,000 MG CAP PO SCH ×2 (11:21→21:06)
[2016-11-16] MEDS: RIVAROXABAN 15 MG TAB PO SCH (11:21)
[2016-11-16] MEDS: PIOGLITAZONE HCL 15 MG TAB PO SCH (11:21)
[2016-11-16] MEDS: INSULIN DETEMIR 36 UNIT SQ SCH (11:27)
[2016-11-16] MEDS: ACETAMINOPHEN 325 MG TAB PO PRN (12:03)
[2016-11-16] MEDS ORDERED: MEPERIDINE 25 MG/ML SYR IVP ONE (12:45)
[2016-11-16] MEDS: METOPROLOL TARTRATE 50 MG TAB PO SCH (12:58)
[2016-11-16] MEDS: INSULIN LISPRO 100 UNIT/ML SC SCH ×2 (12:59→17:56)
[2016-11-16] MEDS ORDERED: VANCOMYCIN HCL/NORMAL SALINE 250 ML IV ONE (13:30)
[2016-11-16] MEDS ORDERED: VANCOMYCIN HCL/NORMAL SALINE 250 ML IV SCH ×2 (15:00→22:00)
[2016-11-16 15:04] LABS: SCAN NEGATIVE
--- NOTE | 2016-11-16 15:54 | GCON ---
[f rep st] CONSULTATION PULMONARY CRITICAL CARE CONSULTATION DATE OF CONSULTATION: 11/16/2016 REASON FOR CONSULTATION: Intensive care unit evaluation and management of severe sepsis of unknown origin. HISTORY: The patient is a very pleasant 86-year-old gentleman with multiple medical problems. 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 He was hospitalized about 3 months ago with an infectious process. It was unclear where his infection came from. He was also admitted 2 weeks ago with pneumonia. He had fever again at that time. Some rales apparently were heard; however, chest x-ray did not show evidence of pneumonia. With his hospitalization 3 months ago the source of his fever was also unclear. He was treated with vancomycin, levofloxacin, defervesced and was discharged. Chest x-ray was negative. Urinalysis was negative. White blood cell counts were only mildly elevated. His recent history is remarkable for left neck pain and tenderness dating back over the last week or 2. On Saturday he presented to Dr. Ramos with an extremely painful left shoulder. He was felt possibly to have pseudogout and given prednisone. His shoulder pain has improved, but has not resolved. Over the last 2 days he has felt very weak. He has been so weak he has been in bed most of the time. He has difficulty because of his weakness getting out of bed or out of a chair. He has had some confusion. He has had fevers, chills and rigors and was brought to the emergency department by ambulance. He has a mild dry cough. He has not felt congested and has not had any mucus. He does not feel like he has a chest infection. He has no urinary tract symptoms. He has no abdominal symptoms, no nausea and vomiting. He denies abdominal pain. There are no significant skin issues, rashes, or ulceration. On admission chest x-ray was clear. White blood cell count was significantly elevated at 28,000. It has subsequently risen even further. Venous blood lactate was 2.9 on admission, sodium 130, glucoses have been in the 300s. Urinalysis was unremarkable. Blood cultures drawn on admission are starting to grow gram-positive cocci in clusters in both bottles. ID and sensitivities are pending. He was fluid resuscitated in the emergency department and in the ICU. He has been treated with ceftriaxone and azithromycin for a possible community- acquired pneumonia. He has just been started on vancomycin secondary to the gram positive blood cultures. He continues to have active rigors. PAST MEDICAL HISTORY: As outlined above. This includes diabetes, history of urinary tract infections and urosepsis, history of renal stones, bladder and prostate cancer and melanoma, hypogonadism, coronary artery disease, atrial fibrillation and flutter, and degenerative disk disease. PAST SURGICAL HISTORY: Includes surgery for melanoma earlier this year. DRUG ALLERGIES: None known. SOCIAL HISTORY: The patient is . He has a supportive and family. He is a nonsmoker. Significant alcohol is denied. FAMILY HISTORY: Melanoma, bladder and stomach cancer. REVIEW OF SYSTEMS: A 10-point review of systems is negative except as mentioned above. PHYSICAL EXAMINATION: GENERAL: Reveals an elderly pleasant gentleman who is having active rigors at the time that I examined him. VITAL SIGNS: Blood pressure is 124/55, heart rate 108 with atrial fibrillation on the monitor, respiratory rate is 20, on 3 L nasal cannula oxygen saturations are 95%. He is afebrile, with a maximum temperature of 38.9 on admission. HEENT: Remarkable for a skin biopsy site on his forehead without surrounding erythema. The mucous membranes are slightly dry. NECK: There is no jugular venous distention or thyromegaly. There is some fullness extending from the temporomandibular joint into the lower neck. This is tender to palpation. There is no overlying erythema or fluctuance. There is tenderness to palpation over the left shoulder with some tenderness with movement. There is no erythema of the left shoulder, no swelling. LUNGS: Are clear bilaterally. Excursions are excellent. There are no bibasilar rales, no wheezes, no rhonchi and no evidence of congestion or consolidation. At the time when I saw him he had no cough. HEART: Irregular with a soft systolic murmur, no gallops. ABDOMEN: Soft, nontender, slightly overweight. There is no organomegaly. He does not have a Herrera catheter in place. There is trace edema. NEUROLOGIC: Remarkable for his rigors, but is otherwise nonfocal. Cognition is intact. DATABASE: Chest x-ray on admission appeared clear. Followup x-ray shows some hypoventilatory changes with crowded markings at the bases. Infiltrate cannot be absolutely excluded, but seems less likely. Changes may be consistent with some mild fluid overload. Laboratory: White blood cell count is 32,000, hematocrit 38.6. Platelets are normal. INR on admission was 1.98 with a PT of 22.6, PTT of 31. Venous lactate was 2.9 on admission, 1 hour later 2.1. Sodium is 130, potassium 4.6, CO2 19 with an anion gap of 10. BUN is 32, creatinine 0.8, glucoses are 250- 350 range. Total bilirubin is 1.5, AST mildly elevated at 66, and ALT normal at 58. Albumin is 2.6. Blood cultures are both growing gram-positive cocci in clusters, suspicious for Staph aureus. ASSESSMENT: 1. Febrile illness of unclear etiology associated with sepsis and now gram- positive bacteremia, possibly Staph. ID and sensitivities are pending. Vancomycin has been initiated. The source is unclear. He does have some abnormalities on examination related to his left neck and shoulder. Query deep tissue abscess or septic joint? A skin source could be possible; however, there are no obvious areas of cellulitis. Pneumonia and urinary tract infections seem less likely based on negative chest x-rays, examinations, and urinalysis. 2. Atrial fibrillation. He has a known history of this. He is on appropriate anticoagulation. Hemodynamics are stable. He has never been significantly hypotensive. Fluid resuscitation has been completed. 3. Severe sepsis appears to be resolving. 4. Insulin-dependent diabetes mellitus. Glucoses are moderately high. He is being covered with insulin. 5. Metabolic: Hyponatremia is present. Intravenous fluids with normal saline will be continued. 6. History of multiple medical problems as outlined above. 7. Gastrointestinal prophylaxis: None needed, he is eating. PLAN AND RECOMMENDATIONS: Vancomycin will be continued for now. Dosing will be per pharmacy. Infectious Disease consultation will be requested. Intravenous fluids in the form of normal saline will be requested. His usual medications will be continued. Azithromycin can be discontinued. Laboratory will be followed. Glucoses will be covered per protocol. Further plans and recommendations will be made based on his progress over the next 12-24 hours. All of the above was discussed with the patient and his family as well as Nursing and with the pharmacist. I also spoke to Dr. Ramos. Over 1 hour of critical care time was spent directly with the patient. /[id number]/MODL MTDD
--- NOTE | 2016-11-16 17:51 | ECHO ---
[id number] + + [address] : : [place] [address] : : [phone] + + Adult Echocardiographic Report + + :Name: URBAN ROMEO JStudy Date: 11/16/2016 03:33 PM : : Hospital Admission Number: [id number] : :: 1930 Gender: Male Height: 74 in : :Age: 86 yrs Race: WH Weight: 186 lb : :Reason For Study: R/O endocarditis/staff in blood cultures : : BSA: 2.1 meters2: + + MMode/2D Measurements \T\ Calculations LVIDd: 4.1 cm EDV(Teich): Ao root diam: LVLd ap4: 8.7 cm 72.3 ml 4.4 cm EDV(MOD-sp4): LA dimension: 87.0 ml 3.1 cm LVLs ap4: 7.0 cm ESV(MOD-sp4): 30.0 ml EF(MOD-sp4): 65.5 % SV(MOD-sp4): 57.0 ml Normal Measurement Values: + + :LVIDd (3.5-5.7cm) IVSd (0.6-1.1cm) LVPWd (0.6-1.1cm) Aortic Root (2.0-3.7cm)Left Atrium (1.5-4.0cm): :LV Vol(d) (76-115ml) LV Vol(s) (29-48ml) Ejec Fraction (50-65%)PV Mode (0.6- 1.2m/s) TV Mode (0.4-1.0m/s) : :MV E Mode (0.8-1.0m/s)MV A Mode (0.3-1.0m/s)LVOT Mode (0.7-1.2m/s) Asc Ao Mode ( 0.9-1.8m/s) : + + Doppler Measurements \T\ Calculations MV E max mode: 84.4 cm/sec Ao V2 max: 132.7 cm/sec TR max mode: 251.9 cm/sec MV A max mode: 106.6 cm/sec Ao max P.0 mmHg TR max P.4 mmHg MV E/A: 0.79 RAP systole: 5.0 mmHg RVSP(TR): 30.4 mmHg Left Ventricle The left ventricle is normal in size. There is normal left ventricular wall thickness. Left ventricular systolic function is normal. Ejection Fraction = 60-65%. There is Doppler evidence for diastolic dysfunction. No regional wall motion abnormalities noted. Right Ventricle The right ventricle is normal in size and function. Atria The left atrial size is normal. Right atrial size is normal. The interatrial septum is intact with no evidence for an atrial septal defect. Mitral Valve Calcified posterior mitral leaflet. There is no evidence of mitral valve prolapse. There is no mitral valve stenosis. There is trace mitral regurgitation. Tricuspid Valve Normal tricuspid valve. There is trace tricuspid regurgitation. Aortic Valve The aortic valve opens well. The aortic valve is not well visualized. There is no aortic stenosis. Trace aortic regurgitation. Pulmonic Valve The pulmonic valve is normal in structure and function. There is no pulmonic valvular regurgitation. Great Vessels The aortic root is normal size. Pericardium/Pleural There is no pericardial effusion. Conclusion A complete two-dimensional transthoracic echocardiogram was performed (2D, M-mode, Doppler and color flow Doppler). Technically limited study with poor acoustic windows. Left ventricular systolic function is normal. Ejection Fraction = 60-65%. Normal wall motion. There is Doppler evidence for diastolic dysfunction. The aortic valve is not well visualized. Calcified posterior mitral leaflet with a nodular appearance. There is trace mitral regurgitation. There is trace tricuspid regurgitation. Trace aortic regurgitation. This study is technically limited and cannot exclude the presence of valvular vegetations. Consider WILBERT if clinically indicated. Final Reading Physician: Basim Wood signed on 11/16/2016 05:50 PM Ordering Physician: Gordon Ramos Performed By: Talya Armas RDCS
[2016-11-16] MEDS ORDERED: IOPAMIDOL (ISOVUE-300) 100 ML BTL ONE (18:35)
--- NOTE | 2016-11-16 19:05 | GCON ---
[f rep st] CONSULTATION REFERRING PHYSICIAN: Charles Parr MD REASON FOR REFERRAL: Staphylococcus aureus bacteremia. HISTORY OF PRESENT ILLNESS: Patient is an 86-year-old male, who presented to [facility] Emergency Room on 11/16/2016 complaining of rigors. He was also complaining of left shoulder damian n and left ear pain. He was weak and unable to ambulate. He was brought to the emergency room by E MS. The patient also related having multiple prior episodes of similar, but more subdued, symptoms, which were treated as urinary tract infections or pneumonias with outpatient antibiotics. He was a dmitted and started empirically on ceftriaxone and vancomycin. Blood cultures drawn in the emergenc y room quickly became positive with methicillin-sensitive Staph aureus. We are consulted to determi ne the etiology of this infection and recommend treatment and followup. PAST MEDICAL HISTORY: 1. Insulin-dependent diabetes. 2. Bladder cancer. 3. Nephrolithiasis. 4. 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 5. Prostate cancer. 6. Degenerative disk disease. 7. Aortic aneurysm. 8. Recurrent uroseptic events. 9. Hypogonadism. 10. Coronary artery disease. 11. Lower extremity venous stasis. 12. Atrial fibrillation. PAST SURGICAL HISTORY: 1. Status post melanoma excision, 2017. 2. Status post squamous cell carcinoma excision. ANTIBIOTICS: 1. Vancomycin. 2. Ceftriaxone. ALLERGIES: No known drug allergies. SOCIAL HISTORY: The patient is . Supportive family. Daughter is in the room. No history o f tobacco, alcohol, or drug use. FAMILY HISTORY: Reviewed but noncontributory. REVIEW OF SYSTEMS: Other than that detailed in the history of present illness, a comprehensive 10-s tem review is negative. PHYSICAL EXAMINATION: VITAL SIGNS: Temperature maximum is 38.9, temperature current is 36.3, heart rate is 81, respiratory rate is 24, blood pressure is 102/48. GENERAL: Patient is a well formed, well-nourished elderly male, in no acute distress. He is moderately toxic in appearance. He is pan rt and oriented x3. He is quite fatigued but very pleasant in demeanor. HEENT: Normocephalic for age. Atraumatic. No scleral icterus. No oral lesion or drainage from the nares. EYES: Lids and conjunctivae are within normal limits. Pupils are equal and round bilaterally. NECK: Supple witho ut meningismus. LUNGS: Clear to auscultation bilaterally with good effort. HEART: Regular rate a nd rhythm. No murmur, rub, or gallop noted. ABDOMEN: Soft. Nontender. No masses. SKIN: Warm a nd dry to the touch. Scattered lesions, although not any recent acute changes. MUSCULOSKELETAL: N o muscle belly tenderness noted. Patient does have left shoulder exquisite tenderness with movement or touch. Left shoulder joint is warm. NEURO: Cranial nerves 2 through 12 seem to be intact. Pe ripheral sensation seems intact in extremities. LABORATORY DATA: The patient has a CBC dated 11/16/2016 that shows a white blood cell count of 32.6 , hemoglobin of 13.3, hematocrit of 38.6, and a platelet count of 185. Differential shows left shif t with 90% segmented neutrophils and 2% band forms. Serum chemistries, on 11/16/2016 show a sodium of 130, potassium of 4.6, chloride of 101, bicarbonate 19, BUN of 32, and creatinine is 0.8. Total bilirubin is 1.5, AST is mildly elevated at 66, ALT is 58. Urinalysis on 11/16/2016 shows 1-3 white cells per high-power field. MICROBIOLOGIC DATA: Patient has blood cultures dated 11/16/2016: 2 of 2 sets are growing methicill in sensitive Staphylococcus aureus. Urine culture from 11/16 is pending. RADIOLOGIC DATA: Patient has a chest x-ray dated 11/16/2016, which shows bilateral increased inters titial markings; pulmonary edema versus interstitial pneumonitis. ASSESSMENT: Sepsis due to methicillin sensitive Staph aureus. Severe problem in patient of advance d age. Suspect he may have a secondary focus of disease in the left shoulder and possibly one in th e musculature of the neck. We will order imaging studies to try to discern this. Echocardiogram wi ll be done later. In the meantime, we will discontinue vancomycin and ceftriaxone and begin patient on cefazolin 2 g IV q.8 hours. PLAN: 1. Discontinue both vancomycin and ceftriaxone. 2. Start cefazolin 2 g IV q.8 hours. 3. Follow up with repeat blood cultures in 24-48 hours. 4. Investigate by imaging left shoulder and neck area to see if there is focal infection in that ar eas. /[id number]/MODL
[2016-11-16] MEDS ORDERED: NS BOLUS 500 ML (Wide open) IV ONE (20:00)
[2016-11-16] MEDS: D5W NS 1,000 ML IV SCH (20:42)
[2016-11-16] MEDS ORDERED: AZITHROMYCIN 250 MG TAB PO SCH (21:00)
[2016-11-16] MEDS: METOPROLOL TARTRATE 100 MG TAB PO SCH (21:07)
[2016-11-16] MEDS: NIACIN ER 1000 MG TAB.ER PO SCH (21:07)
[2016-11-16] MEDS: ceFAZolin 2 GM/DEXTROSE 100 ML IV SCH (21:08)
[2016-11-17] MEDS: D5W NS 1,000 ML IV SCH (04:43)
[2016-11-17 04:54] LABS: % IMMATURE GRANULYOCYTES 0.7 % (0.0-1.1); ABSOLUTE IMMATURE GRANULOCYTES 0.17 10^3/uL (0.00-0.10); ADD DIFF? NO; ADD MORPH? NO; ADD SCAN? NO; ATYPICAL LYMPHOCYTE FLAG 0 (0-99); FRAGMENT RBC FLAG 0 (0-99); HEMATOCRIT 38.3 % (40.0-51.0); HEMOGLOBIN 13.4 g/dL (13.7-17.5); LEFT SHIFT FLG 10 (0-99); LIPEMIA HEMOLYSIS FLAG 90 (0-99); MEAN CELL HEMOGLOBIN 30.2 pg (27.9-34.1); MEAN CELL VOLUME 86.3 fL (81.5-99.8); MEAN PLATELET VOLUME 10.4 fL (8.7-11.7); PLATELET CLUMPS FLAG 0 (0-99); PLATELET COUNT 174 10^3/uL (150-400); RED BLOOD CELL COUNT 4.44 10^6/uL (4.40-6.38); RED CELL DISTRIBUTION WIDTH 16.5 % (11.5-15.2)
[2016-11-17 05:12] LABS: ALANINE AMINOTRANSFERASE 67 IU/L (21-72); ALBUMIN 2.6 g/dL (3.5-5.0); ALKALINE PHOSPHATASE 154 IU/L (38-126); ANION GAP 11 mEq/L (8-16); ASPARTATE AMINOTRANSFERASE 60 IU/L (17-59); BILIRUBIN,TOTAL 1.2 mg/dL (0.1-1.4); CALCIUM 8.9 mg/dL (8.5-10.4); CARBON DIOXIDE 17 mEq/l (22-31); CHLORIDE 104 mEq/L (97-110); CREATININE 0.7 mg/dL (0.7-1.3); GLOMERULAR FILTRATION RATE > 60; GLUCOSE 194 mg/dL (70-100); POTASSIUM 3.7 mEq/L (3.5-5.2); SODIUM 132 mEq/L (134-144); TOTAL PROTEIN 5.3 g/dL (6.3-8.2)
[2016-11-17] MEDS: ceFAZolin 2 GM/DEXTROSE 100 ML IV SCH ×3 (05:24→21:30)
--- NOTE | 2016-11-17 07:29 | CPEKG ---
Heart Rate: 120 RR Interval: 500 QRSD Interval: 88 QT Interval: 344 QTC Interval: 486 QRS [place]: 69 T Wave [place]: 9 EKG Severity - ABNORMAL ECG - EKG Impression: ATRIAL FIBRILLATION EKG Impression: BORDERLINE PROLONGED QT INTERVAL Electronically Signed By: Liseth Chu 18-Nov-2016 07:24:15
[2016-11-17] MEDS: INSULIN LISPRO 100 UNIT/ML SC SCH ×3 (08:24→17:35)
[2016-11-17] MEDS: METOPROLOL TARTRATE 50 MG TAB PO SCH (08:25)
[2016-11-17] MEDS: PRESERVISION AREDS2 FORMULA EYE VIT 1 EACH PO SCH ×2 (08:25→21:29)
[2016-11-17] MEDS: SENNOSIDES/DOCUSATE SODIUM TAB PO SCH ×2 (08:25→21:30)
[2016-11-17] MEDS: ASPIRIN 81 MG CHEWABLE TAB PO SCH (08:25)
[2016-11-17] MEDS: PIOGLITAZONE HCL 15 MG TAB PO SCH (08:26)
[2016-11-17] MEDS: RIVAROXABAN 15 MG TAB PO SCH (08:26)
[2016-11-17] MEDS: ALLOPURINOL 300 MG TAB PO SCH (08:27)
[2016-11-17] MEDS: OMEGA-3 FATTY ACIDS 1,000 MG CAP PO SCH ×2 (08:27→21:30)
[2016-11-17] MEDS: CHOLECALCIFEROL VIT D3 1,000 UNITS TAB PO SCH (08:27)
[2016-11-17] MEDS: INSULIN DETEMIR 36 UNIT SQ SCH (08:28)
[2016-11-17] MEDS ORDERED: INSULIN DETEMIR 36 UNIT SQ SCH (09:00)
--- NOTE | 2016-11-17 09:40 | PDINTPN ---
Piece Worker Progress Note Assessment/Plan: Assessment: MSSA sepsis and bacteremia. On vancomycin. Clinically improved. Abscess/phlegmon related to the left neck/sternocleidomastoid muscle. Surgical consultation has been obtained by report. I do not think infection is amenable to simple catheter drainage based on the CT scan. Paroxysmal atrial fibrillation, chronic anticoagulation. Anticoagulation will need to be reversed prior to surgery or intervention. I will hold Eliquis for now, however he did get his dose today. We can transition him to heparin which can be held for procedures if needed. Metabolic: No issues identified. GI prophylaxis: Will hold on this as he is currently eating. Pantoprazole if NPO. DVT prophylaxis: Please see above. On full-dose anticoagulation currently Plan: Continue antibiotics and present care. Surgical consult has been obtained. May need surgical I and D. Follow laboratory, clinical status. Infectious Disease to continue to follow as well. 30 minutes of critical care time spent with the patient. Discussed with nursing and the ICU multi disciplinary team. Subjective: Feels better, but not well. No further chills/rigors. Neck pain on the left persists. Shoulder okay. Objective: Vital Signs Temp Pulse Resp BP Pulse Ox 36.8 C 128 H 21 H 138/95 H 97 11/17/16 07:47 11/17/16 08:25 11/17/16 07:47 11/17/16 08:25 11/17/16 07:47 Laboratory Results 11/17/16 04:44 11/17/16 04:45 11/16/16 11/17/16 11/18/16 05:59 05:59 05:59 Intake Total 3000 3870 Output Total 725 Balance 3000 3145 PT 22.6 SEC (12.0-15.0) H 11/16/16 00:55 INR 1.98 (0.83-1.16) H 11/16/16 00:55 Laboratory Tests 11/17/16 04:45 Calcium 8.9 Total Bilirubin 1.2 AST 60 H ALT [address] neck: Abscess/phlegmon related to the left sternocleidomastoid. Unfortunately, despite request, the left shoulder joint was not imaged. No evidence of infection in the tissues above the joint. Renal ultrasound: No abscess, significant abnormalities found. Physical Exam - Physical Exam General Appearance: alert, no apparent distress, other (Up in chair, not chilling) EENT: other (No change in scan, no obvious cellulitis. Fullness over left sternocleidomastoid with tenderness) Neck: No normal inspection (See above) Respiratory: lungs clear, decreased breath sounds (At bases) Cardiac/Chest: tachycardia, irregularly irregular (Atrial fibrillation alternating with sinus rhythm.) Abdomen: normal bowel sounds, non-tender, soft Male Genitalia: other (Herrera catheter in place. Input greater than output last 24 hours.) Skin: normal color, warm/dry Extremities: No pedal edema Neuro/Psych: no motor/sensory deficits, No cognition abnormalities ICD10 Worksheet Patient Problems: Problems Problem Status Onset Atrial fibrillation and flutter Acute Orchitis Acute UTI (urinary tract infection) Acute Epididymitis Acute Pneumonia due to aerobic bacteria Acute Pneumonia Acute Cellulitis of right leg Acute Fever and chills Acute Sepsis Acute
[2016-11-17] MEDS ORDERED: METOPROLOL TARTRATE 50 MG TAB PO ONE (09:54)
--- NOTE | 2016-11-17 10:00 | SOAPPROG ---
SOAP Progress Note Assessment/Plan: Assessment: Plan: 11/17/16 10:00 sepsis with MSSA likely from left neck fluid accumulation, consult with surgery , continue antibiotics DM--d/c D5, SSI, lantus rapid a fib--increase metoprolol. h/o same with infection contrast exposure--hold metformin patient pulled out varela catheter bulb last night. Passing urine, but incontinent--follow Subjective: Carroll denies pain. Able to move neck and arms without pain. Left anterior/ lateral neck is quite sore to touch. No SOB, cough, or CP. Ate breakfast. Pulled out urinary catheter last night. Incontinent now, using condom catheter. Objective: Vital Signs Temp Pulse Resp BP Pulse Ox 36.8 C 128 H 21 H 138/95 H 97 11/17/16 07:47 11/17/16 08:25 11/17/16 07:47 11/17/16 08:25 11/17/16 07:47 Laboratory Results 11/17/16 04:44 11/17/16 04:45 11/16/16 11/17/16 11/18/16 05:59 05:59 05:59 Intake Total 3000 3870 Output Total 725 Balance 3000 3145 PT 22.6 SEC (12.0-15.0) H 11/16/16 00:55 INR 1.98 (0.83-1.16) H 11/16/16 00:55 Gen: tired, pleasant, mildly confused by follows instructions well. HEENT: left neck with ST thickening, fullness and TTP. Neck ROM ok Lungs: mildly diminished BS, scant production with initial cough Heart: tachy irreg irreg 100-=130 BPM Abd + bs soft Urinary incontinence LE's trace-1+ edema, stable PVD appearance WBC 23K (peak 32K) Glucose 200's ICD10 Worksheet Patient Problems: Problems Problem Status Onset Pneumonia Acute Sepsis Acute Atrial fibrillation and flutter Acute Cellulitis of right leg Acute Epididymitis Acute Fever and chills Acute Orchitis Acute Pneumonia due to aerobic bacteria Acute UTI (urinary tract infection) Acute
[2016-11-17] MEDS: NS 1,000 ML IV SCH (10:16)
[2016-11-17] MEDS ORDERED: LIDO/EPI 1% **Not for Epidural 20 ML MDV IF ONE (11:45)
[2016-11-17] MEDS ORDERED: PHYTONADIONE 2.5 MG/2.5 ML ORAL UDL PO ONE (12:53)
--- NOTE | 2016-11-17 13:32 | GCON ---
[f rep st] CONSULTATION DATE OF CONSULTATION: 11/17/2016 REASON FOR EVALUATION: Neck abscess. REQUESTING CLINICIAN: Donte Alejandra PA-C. HISTORY OF PRESENT ILLNESS: 86-year-old male with a significant history for multiple medical problems, including recent scalp melanoma excision, multiple recurrent skin infections, recurrent urinary tract infection with urosepsis, squamous cell carcinomas of the forehead, as well as coronary disease and atrial fibrillation for which he is on anticoagulation (Xarelto). He is admitted with a few-day history of progressively worsening left shoulder pain, which had been waxing and waning over the prior month. He had been treated initially with prednisone for presumed gout. He was found to be declining at home, with fevers and chills and was brought to the emergency room department and subsequently admitted to the hospital. Imaging studies disclosed a large left neck suspect abscess throughout the sternocleidomastoid muscle with MSSA bacteremia. Surgery has requested for further recommendations. PAST MEDICAL HISTORY: Diabetes mellitus, history of bladder cancer, history of nephrolithiasis, melanoma, history of prostate cancer, recurrent urosepsis, coronary artery disease, and atrial fibrillation/flutter. PAST SURGICAL HISTORY: Prior squamous cell excision and melanoma excision. MEDICATIONS: Niaspan, Lamisil, Questran, Levemir, Xarelto, nitrofurantoin, Lovaza, metformin, allopurinol, Actos, metoprolol, aspirin, Welchol, tramadol p.r.n. and aspirin. ALLERGIES: No known drug allergies. SOCIAL: Patient is . PHYSICAL EXAMINATION: VITAL SIGNS: Temperature 37.1, blood pressure 130/80, pulse 100, respirations 28. CONSTITUTIONAL: Alert, appropriate, and comfortable. HEENT: Anicteric. NECK: No appreciable cervical lymphadenopathy. Diffusely tender left sternocleidomastoid musculature with associated firmness. HEART: Irregular. LUNGS: Clear. ABDOMEN: Soft, nontender. EXTREMITIES: No reproducible left shoulder tenderness to my exam LABORATORY DATA: White count 24, hemoglobin 13, platelets 175. INR 2. Sodium 132, potassium 33.7, chloride 104, CO2 17, BUN 34, creatinine 0.7, glucose 232. Urinalysis normal. Blood cultures with methicillin-susceptible Staph aureus. CT images directly reviewed on PACS and with radiologist: Diffuse left sternocleidomastoid muscle fluid collection, probable abscess. IMPRESSION: 1. Neck abscess. 2. History of melanoma. 3. Staphylococcus bacteremia. 4. Atrial fibrillation/flutter on anticoagulation. PROCEDURE NOTE: The left sternocleidomastoid muscle was interrogated with a bedside ultrasound. Lidocaine 1% was infiltrated along the anterior border. Under direct ultrasound guidance, the fluid collection was aspirated with an 18- gauge needle. Thick purulence was identified for approximately of 5 cc. I was unable to attain more given the multiple septations and complexity of the fluid. Specimen was sent for culture and for cytology. PLAN: 1. Anticoagulation will be withheld. 2. Will plan for neck abscess drainage under anesthesia tomorrow morning. 3. Care plan was discussed with Donte Alejandra PA-C, as well as hospital well logging operator mud analysis. /[id number]/MODL MTDD
--- NOTE | 2016-11-17 13:52 | PCMIDPN ---
Assessment/Plan: 1. Complicated Staph aureus bacteremia with associated abscess/ pyomyositis in the left neck /sternocleidomastoid area: Patient will go to the operating room tomorrow for extensive debridement and washout. No other obvious sites of metastasis at this point in time. Transthoracic echocardiogram negative. Continue Ancef. Repeat blood cultures tomorrow. Compromised integument likely portal of entry. 11/17/16 13:53 Subjective: Patient feels miserable. Complaining of severe left neck pain. CT of the neck shows extensive abscess in the left neck sternocleidomastoid area. This was aspirated by Dr. Duran with evidence of makenzie purulence. G stain and culture pending. He denies back pain, or other joint pain. Objective: Ancef 2 g IV q.8 hours day 1. Afebrile Vital Signs Temp Pulse Resp BP Pulse Ox 37.1 C 114 H 28 H 131/77 H 96 11/17/16 11:52 11/17/16 11:52 11/17/16 11:52 11/17/16 11:52 11/17/16 11:52 Laboratory Results 11/17/16 04:44 11/17/16 04:45 11/16/16 11/17/16 11/18/16 05:59 05:59 05:59 Intake Total 3000 3870 Output Total 725 Balance 3000 3145 blood cultures with 4/4 bottles November 16 MSSA November 17 neck aspirate Gram stain and culture pending Transthoracic echocardiogram without vegetations - Physical Exam General Appearance: other ( elderly male, lying in bed, looks uncomfortable.) EENT: other ( Dry mucous membranes. Smells ketotic.) Respiratory: lungs clear Neck: other ( Left neck with visible swelling behind the ear extending down into the sternocleidomastoid, anterior and lateral neck. This is extremely tender and fluctuant. no bullae. Overlying skin is thank issues, but not beet red.) Cardiac/Chest: tachycardia Abdomen: non-tender, soft Skin: other ( Patient has multiple scabs on his forearms, and a large scabbed area on his top of his head consistent with previous Mohs procedure), No embolic lesions ICD10 Worksheet Patient Problems: Problems Problem Status Onset Pneumonia Acute Sepsis Acute Atrial fibrillation and flutter Acute Cellulitis of right leg Acute Epididymitis Acute Fever and chills Acute Orchitis Acute Pneumonia due to aerobic bacteria Acute UTI (urinary tract infection) Acute
[2016-11-17] MEDS: METOPROLOL TARTRATE 100 MG TAB PO SCH (21:29)
[2016-11-17] MEDS: NIACIN ER 1000 MG TAB.ER PO SCH (21:30)
[2016-11-18] MEDS: NS 1,000 ML IV SCH ×2 (00:52→17:24)
[2016-11-18 05:12] LABS: % IMMATURE GRANULYOCYTES 1.1 % (0.0-1.1); ABSOLUTE IMMATURE GRANULOCYTES 0.18 10^3/uL (0.00-0.10); ADD DIFF? NO; ADD MORPH? NO; ADD SCAN? NO; ATYPICAL LYMPHOCYTE FLAG 0 (0-99); FRAGMENT RBC FLAG 0 (0-99); HEMATOCRIT 36.2 % (40.0-51.0); HEMOGLOBIN 12.6 g/dL (13.7-17.5); LEFT SHIFT FLG 10 (0-99); LIPEMIA HEMOLYSIS FLAG 90 (0-99); MEAN CELL HEMOGLOBIN 29.7 pg (27.9-34.1); MEAN CELL HEMOGLOBIN CONCENTR. 34.8 g/dL (32.4-36.7); MEAN CELL VOLUME 85.4 fL (81.5-99.8); MEAN PLATELET VOLUME 10.8 fL (8.7-11.7); PLATELET CLUMPS FLAG 30 (0-99); PLATELET COUNT 192 10^3/uL (150-400); RED BLOOD CELL COUNT 4.24 10^6/uL (4.40-6.38); RED CELL DISTRIBUTION WIDTH 16.1 % (11.5-15.2)
[2016-11-18 05:22] LABS: INR 1.79 (0.83-1.16); PROTIME(PATIENT) 20.9 SEC (12.0-15.0)
[2016-11-18 05:23] LABS: APTT 35.1 SEC (23.0-38.0)
[2016-11-18 05:44] LABS: ALANINE AMINOTRANSFERASE 51 IU/L (21-72); ALBUMIN 2.1 g/dL (3.5-5.0); ALKALINE PHOSPHATASE 166 IU/L (38-126); ANION GAP 9 mEq/L (8-16); ASPARTATE AMINOTRANSFERASE 50 IU/L (17-59); CARBON DIOXIDE 18 mEq/l (22-31); CHLORIDE 101 mEq/L (97-110); CREATININE 0.6 mg/dL (0.7-1.3); GLOMERULAR FILTRATION RATE > 60; GLUCOSE 167 mg/dL (70-100); POTASSIUM 3.2 mEq/L (3.5-5.2); SODIUM 128 mEq/L (134-144); TOTAL PROTEIN 4.9 g/dL (6.3-8.2)
[2016-11-18] MEDS: ceFAZolin 2 GM/DEXTROSE 100 ML IV SCH ×3 (05:47→21:54)
[2016-11-18] MEDS ORDERED: BUPIVACAINE/EPI 0.5% 30 ML SDV ONE (07:33)
[2016-11-18] MEDS ORDERED: POLYMYXIN B SULFATE 500,000 UNIT/10 ML SYR IRR ONE (07:34)
[2016-11-18] MEDS ORDERED: BACITRACIN 50,000 UNITS/10 ML SYR IRR ONE (07:34)
--- NOTE | 2016-11-18 07:55 | PDANEPAE ---
ANE History of Present Illness 86 yo M w neck abscess here for I+D ANE Past Medical History - Cardiovascular History Hx Arrhythmias: Yes Cardiovascular History Comment: A-Fib - Pulmonary History Hx Oxygen in Use at Home: No Hx Sleep Apnea: No Sleep Apnea Screening Result - Last Documented: Positive - Endocrine History Hx Diabetes: Yes - Cancer History Hx Cancer: Yes - Chronic Pain History Chronic Pain: No ANE Review of Systems - Exercise capacity Exercise capacity: >=4 METS ANE Patient History - Allergies Allergies/Adverse Reactions: No Allergies [NKDA] Allergy (Verified 11/16/16 01:04) - Home Medications Home Medications: Allopurinol [Allopurinol 300 MG (RX)] 300 mg PO DAILY 11/01/16 [Last Taken Unknown] Aspirin [Aspirin 81mg (*)] 81 mg PO DAILY 11/01/16 [Last Taken Unknown] C/E/Zn/Cu/OM3/DHA/EPA/LUT/ZEAX [Preservision Areds 2 Softgel] 1 each PO BID 01/08 [Last Taken Unknown] Cholecalciferol Vit D3 [Vitamin D3 (*)] 2,000 units PO DAILY 11/01/16 [Last Taken Unknown] Herbals/Supplements -Info Only 1 ea PO DAILY 11/01/16 [Last Taken Unknown] Insulin Detemir [Levemir] 36 unit SQ DAILY 11/01/16 [Last Taken Unknown] Metoprolol Tartrate [Lopressor 50 mg (*)] 50 mg PO DAILY 11/01/16 [Last Taken 18:00] Metoprolol Tartrate [Lopressor 50 mg (*)] 100 mg PO HS 11/01/16 [Last Taken 18:00] Niacin ER [Niaspan 1000 mg (*)] 1,000 mg PO HS 11/01/16 [Last Taken Unknown] Nitrofurantoin Macrocrystal [Nitrofurantoin] 100 mg PO DAILY 11/01/16 [Last Taken Unknown] [place]-3 Fatty Acids/Fish Oil [[place] 3 1,000 mg Softgel] 2 each PO BID 11/01/16 [ Last Taken Unknown] Pioglitazone HCl [Actos 15mg (*)] 15 mg PO DAILY 11/01/16 [Last Taken Unknown] Rivaroxaban [Xarelto 15mg (*)] 15 mg PO DAILY 11/01/16 [Last Taken Unknown] metFORMIN HCL [Metformin HCl] 500 mg PO DAILY 11/01/16 [Last Taken Unknown] - NPO status NPO Status: no food or drink >8 hours NPO Since - Liquids (Date): 11/18/16 NPO Since - Liquids (Time): 00:00 NPO Since - Solids (Date): 11/18/16 NPO Since - Solids (Time): 00:00 - Anes Hx Anes Hx: no prior problems - Smoking Hx Smoking Status: Former smoker - Alcohol Use Alcohol Use: Occasionally - Family Anes Hx Family Anes Hx: none ANE Labs/Vital Signs - Labs Result Diagrams: 11/18/16 04:50 11/18/16 04:50 - Vital Signs Blood Pressure: 148/88 Heart Rate: 106 Respiratory Rate: 23 O2 Sat (%): 94 Height: 187.96 cm Weight: 87.9 kg ANE Physical Exam - Airway Neck exam: decreased ROM Mallampati Score: Class 3 Mouth exam: normal dental/mouth exam - Pulmonary Pulmonary: no respiratory distress - Cardiovascular Cardiovascular: regular rate and rhythym - ASA Status ASA Status: III ANE Anesthesia Plan Anesthesia Plan: GA with mask (GETA/LMA as back-up)
[2016-11-18] MEDS ORDERED: LIDOCAINE 1% 300 MG/30 ML SDV ONE (08:02)
[2016-11-18] MEDS ORDERED: PROPOFOL/EMULSION 500 MG/50 ML BOTTLE IV ONE (08:04)
[2016-11-18] MEDS ORDERED: ONDANSETRON 4 MG/2 ML VIAL IVP PRN (08:32)
[2016-11-18] MEDS ORDERED: NALOXONE HCL 0.4 MG/ML INJ IVP PRN (08:32)
[2016-11-18] MEDS ORDERED: ACETAMINOPHEN 500 MG TAB PO PRN (08:32)
[2016-11-18] MEDS ORDERED: fentaNYL 100 MCG/2 ML INJ IVP PRN (08:32)
[2016-11-18] MEDS ORDERED: OXYCODONE/APAP 5/325 TAB PO PRN (08:32)
--- NOTE | 2016-11-18 08:49 | POSTOPPROG ---
Post Op Note Date of Operation: 11/18/16 Surgeon: Brian Duran Anesthesiologist: Juventino Campbell Anesthesia: Other (Specify) (TIVA) Pre-op Diagnosis: Deep left neck abscess Post-op Diagnosis: Same Procedure: I&D deep left neck abscess Findings: anterior SCM abscess from prox to distal insertion Inf/Abcess present in the surg proc area at time of surgery?: Yes Depth: Deep Incisional (Fascial) EBL: Minimal Drains: [place] Specimen(s): muscle/abscess cavity
--- NOTE | 2016-11-18 09:13 | GOP ---
[f rep st] OPERATIVE REPORT DATE OF OPERATION: 11/18/2016 SURGEON: Brian Duran MD ANESTHESIA: Total IV general, Dr. Campbell. PREOPERATIVE DIAGNOSIS: Deep left neck abscess, staphylococcal bacteremia. POSTOPERATIVE DIAGNOSIS: Deep left neck abscess, staphylococcal bacteremia. PROCEDURE PERFORMED: Incision and drainage of deep left neck abscess. FINDINGS: See below. INDICATIONS: 86-year-old male admitted with staph bacteremia and severe left neck pain. Imaging studies disclosed a large left neck sternocleidomastoid abscess. Anticoagulants had been held preoperatively. The patient is now taken to the operating today for an incision and drainage. DESCRIPTION OF PROCEDURE: Total IV general anesthesia was induced. The left neck was infiltrated with 1% lidocaine and 0.5% Marcaine along the anterior and posterior borders of the sternocleidomastoid muscle. A vertical incision was created over the mid point of the anterior border of the sternocleidomastoid muscle. Subcutaneous tissues and platysma muscle were divided. The anterior muscle belly was easily identified, as this was thinned out from the surrounding abscess cavity. This was easily popped into with a hemostat. Purulent fluid tracked all the way down toward the clavicular head, as well as toward the skull base insertion. Fluid was all evacuated. The cavity was copiously irrigated until clear. Portions of soft tissue were all sent for final pathologic processing. A 1/4-inch Rajendra drain was placed both proximally and distally, and secured with nylon sutures. Satisfactory hemostasis was assured. Dressings were applied, and the patient taken to recovery awake uneventfully. /[id number]/MODL MTDD
--- NOTE | 2016-11-18 11:17 | PDINTPN ---
Corporate Quality Assurance Manager Progress Note Assessment/Plan: Assessment: MSSA sepsis and bacteremia. On cephazolin. Abscess/phlegmon related to the left neck/sternocleidomastoid muscle. Status post I&D under local anesthesia. Abscess drained. Quite extensive, from the base of the skull to the clavicle. Clinically doing well. Anticipate rapid improvement from here. Paroxysmal atrial fibrillation, chronic anticoagulation. Will restart Xaralto tomorrow, give prophylactic heparin today. Hemodynamically stable despite atrial fibrillation. Metabolic: Hypokalemia, will initiate replacement protocol. GI prophylaxis: Eating. DVT prophylaxis: Please see above. Plan: Continue antibiotics and present care. Please see plans above regarding anticoagulation. Increase mobilization starting later today. Follow laboratory. Appreciate surgical care. 25 minutes of critical care time spent with the patient. Discussed with patient 's family, nursing and the ICU multi disciplinary team. Subjective: Sleepy postoperatively. Status post I&D of neck under local anesthesia Objective: Vital Signs Temp Pulse Resp BP Pulse Ox 36.6 C 100 22 H 122/73 H 94 11/18/16 09:19 11/18/16 09:32 11/18/16 09:32 11/18/16 09:32 11/18/16 09:32 Microbiology 11/17/16 12:45 Gram Stain - Final Neck - Aspirate Laboratory Results 11/18/16 04:50 11/18/16 04:50 11/17/16 11/18/16 11/19/16 05:59 05:59 05:59 Intake Total 3870 3774 300 Output Total 725 Balance 3145 3774 300 PT 20.9 SEC (12.0-15.0) H 11/18/16 04:50 INR 1.79 (0.83-1.16) H 11/18/16 04:50 Laboratory Tests 11/18/16 11/18/16 04:50 04:50 PT 20.9 H INR 1.79 H APTT 35.1 Calcium 9.0 Total Bilirubin 1.0 AST 50 ALT 51 Albumin 2.1 L Physical Exam - Physical Exam General Appearance: no apparent distress (Appears comfortable), other (Sleepy postoperatively, arouses) EENT: other (No changes) Neck: other (Dressing over left neck I and D site. [place] drain underneath.) Respiratory: lungs clear (Anteriorly), decreased breath sounds (At bases) Cardiac/Chest: irregularly irregular (Atrial fibrillation in the low 100s) Abdomen: normal bowel sounds, non-tender, soft Skin: normal color, warm/dry Extremities: pedal edema (Trace) Neuro/Psych: no motor/sensory deficits, No cognition abnormalities ICD10 Worksheet Patient Problems: Problems Problem Status Onset Atrial fibrillation and flutter Acute Orchitis Acute UTI (urinary tract infection) Acute Epididymitis Acute Pneumonia due to aerobic bacteria Acute Pneumonia Acute Cellulitis of right leg Acute Fever and chills Acute Sepsis Acute
[2016-11-18] MEDS ORDERED: PROTOCOL MAGNESIUM 1 DOSE IV PRN (11:20)
[2016-11-18] MEDS ORDERED: PROTOCOL POTASSIUM 1 DOSE MISC PRN (11:20)
[2016-11-18] MEDS: ASPIRIN 81 MG CHEWABLE TAB PO SCH (11:24)
[2016-11-18] MEDS: CHOLECALCIFEROL VIT D3 1,000 UNITS TAB PO SCH (11:24)
[2016-11-18] MEDS: ALLOPURINOL 300 MG TAB PO SCH (11:24)
[2016-11-18] MEDS: PRESERVISION AREDS2 FORMULA EYE VIT 1 EACH PO SCH ×2 (11:24→20:01)
[2016-11-18] MEDS: OMEGA-3 FATTY ACIDS 1,000 MG CAP PO SCH ×2 (11:25→20:02)
[2016-11-18] MEDS: PIOGLITAZONE HCL 15 MG TAB PO SCH (11:25)
[2016-11-18] MEDS: SENNOSIDES/DOCUSATE SODIUM TAB PO SCH ×2 (11:25→20:01)
[2016-11-18] MEDS: INSULIN LISPRO 100 UNIT/ML SC SCH ×3 (11:28→17:46)
[2016-11-18] MEDS: METOPROLOL TARTRATE 50 MG TAB PO SCH (11:29)
[2016-11-18] MEDS: INSULIN DETEMIR 36 UNIT SQ SCH (11:29)
--- NOTE | 2016-11-18 12:02 | POSTANESTH ---
Post Anesthetic Evaluation Cardiovascular Status: Normal, Stable, Similar to Pre-Op Cond Respiratory Status: Normal, Stable, Similar to Pre-op Cond. Level of Consciousness/Mental Status: Can Participate in Eval, Alert and Oriented Pain Control: Adequate, Prn Tx Ordered Nausea/Vomiting Control: Adequate, Prn Tx Ordered Complications Possibly Related to Anesthesia: None Noted
[2016-11-18 12:11] LABS: MAGNESIUM 1.4 mg/dL (1.6-2.3)
[2016-11-18] MEDS ORDERED: MAGNESIUM SULF 2 GM/WATER 50 ML IV ONE (12:30)
[2016-11-18] MEDS ORDERED: POTASSIUM CL 10 MEQ TAB PO ONE ×2 (12:30→19:52)
[2016-11-18] MEDS: HEPARIN 5,000 UNIT/0.5 ML SYR SC SCH ×2 (13:10→20:01)
[2016-11-18] MEDS ORDERED: POTASSIUM CL 20 MEQ/15 ML UDCUP PO ONE (13:15)
--- NOTE | 2016-11-18 13:27 | PCMIDPN ---
Assessment/Plan: 1. Complicated Staph aureus bacteremia with associated abscess/ pyomyositis in the left neck /sternocleidomastoid area: Status post incision and drainage of large anterior cervical abscess. May need repeat washout. Continue Ancef at present dose. No other obvious areas of metastasis. TTE negative. Subjective: Status post incision and drainage of large anterior cervical abscess. [place] drain in place. Patient is very tired, but also very stoical. Many family members present in the room. Says that his whole back hurts from the bed. Objective: Ancef 2 g IV q.8 hours day 2 T-max 37.2degrees Vital Signs Temp Pulse Resp BP Pulse Ox 36.8 C 113 H 22 H 137/86 H 95 11/18/16 11:39 11/18/16 11:39 11/18/16 11:39 11/18/16 11:39 11/18/16 11:39 Microbiology 11/17/16 12:45 Gram Stain - Final Neck - Aspirate Laboratory Results 11/18/16 04:50 11/18/16 04:50 11/17/16 11/18/16 11/19/16 05:59 05:59 05:59 Intake Total 3870 3774 300 Output Total 725 Balance 3145 3774 300 Repeat blood cultures pending Neck abscess: MSSA Previous blood cultures November 16 with MSSA - Physical Exam General Appearance: other (Looks tired.) EENT: other (Left neck: Area of fullness/tenderness without fluctuance beneath left ear, along angle of the jaw. Maceration of the skin behind his ear. The neck abscess itself is markedly better. No obvious remaining fluctuance. The only abnormality that I can see is the fullness along the angle of the jaw inferior to his ear. Rajendra drain in place, not actively draining.) Cardiac/Chest: irregularly irregular Extremities: other (Left shoulder with full range of motion. Knees look fine.) Abdomen: non-tender, soft Skin: other (Multiple excoriations/scabs on forearms. Previous Mohs surgery on his scalp.) ICD10 Worksheet Patient Problems: Problems Problem Status Onset Pneumonia Acute Sepsis Acute Atrial fibrillation and flutter Acute Cellulitis of right leg Acute Epididymitis Acute Fever and chills Acute Orchitis Acute Pneumonia due to aerobic bacteria Acute UTI (urinary tract infection) Acute
--- NOTE | 2016-11-18 15:30 | SOAPPROG ---
SOAP Progress Note Assessment/Plan: Assessment: Plan: 11/17/16 10:00 sepsis with MSSA likely from left neck fluid accumulation, consult with surgery , continue antibiotics DM--d/c D5, SSI, lantus rapid a fib--increase metoprolol. h/o same with infection contrast exposure--hold metformin patient pulled out varela catheter bulb last night. Passing urine, but incontinent--follow 11/18/16 15:28 MSSA abscess left neck region--WBC improving Will follow progress, appreciate surgical and ID and Logging Shovel Operator involvement. Continue IV Atbx follow progress DM glucose reasonable, resume metformin tomorrow low Na+ and low K+ --replacement protocol ordered rapid a fib--asymptomatic, continue with increase metoprolol dosing anticipate transfer to med surg as bed need arises, he is stable Subjective: The patient is resting comfortably at this point. He feels the neck I&D went well. No pain at rest. He feels otherwise ok. Objective: Vital Signs Temp Pulse Resp BP Pulse Ox 36.8 C 113 H 22 H 137/86 H 95 11/18/16 11:39 11/18/16 11:39 11/18/16 11:39 11/18/16 11:39 11/18/16 11:39 Microbiology 11/17/16 12:45 Gram Stain - Final Neck - Aspirate Laboratory Results 11/18/16 04:50 11/18/16 04:50 11/17/16 11/18/16 11/19/16 05:59 05:59 05:59 Intake Total 3870 3774 300 Output Total 725 Balance 3145 3774 300 PT 20.9 SEC (12.0-15.0) H 11/18/16 04:50 INR 1.79 (0.83-1.16) H 11/18/16 04:50 Gen: NAD, pleasant, tired Neck: s/p I&D with [place] drain placement. Less fluctuant Lungs: mildly diminished BS, dry cough Heart: irreg irreg with mild tachycardia BP stable Abd + bs soft LE's stable mild edema ICD10 Worksheet Patient Problems: Problems Problem Status Onset Pneumonia Acute Sepsis Acute Atrial fibrillation and flutter Acute Cellulitis of right leg Acute Epididymitis Acute Fever and chills Acute Orchitis Acute Pneumonia due to aerobic bacteria Acute UTI (urinary tract infection) Acute
[2016-11-18 17:45] LABS: POTASSIUM 3.7 mEq/L (3.5-5.2)
[2016-11-18] MEDS: NIACIN ER 1000 MG TAB.ER PO SCH (20:01)
[2016-11-18] MEDS: METOPROLOL TARTRATE 100 MG TAB PO SCH (20:02)
[2016-11-19 04:59] LABS: % IMMATURE GRANULYOCYTES 0.9 % (0.0-1.1); ABSOLUTE IMMATURE GRANULOCYTES 0.11 10^3/uL (0.00-0.10); ADD DIFF? NO; ADD MORPH? NO; ADD SCAN? NO; ATYPICAL LYMPHOCYTE FLAG 0 (0-99); FRAGMENT RBC FLAG 0 (0-99); HEMATOCRIT 37.7 % (40.0-51.0); HEMOGLOBIN 13.3 g/dL (13.7-17.5); LEFT SHIFT FLG 0 (0-99); LIPEMIA HEMOLYSIS FLAG 90 (0-99); MEAN CELL HEMOGLOBIN 29.5 pg (27.9-34.1); MEAN CELL HEMOGLOBIN CONCENTR. 35.3 g/dL (32.4-36.7); MEAN CELL VOLUME 83.6 fL (81.5-99.8); MEAN PLATELET VOLUME 10.4 fL (8.7-11.7); PLATELET CLUMPS FLAG 0 (0-99); PLATELET COUNT 172 10^3/uL (150-400); RED BLOOD CELL COUNT 4.51 10^6/uL (4.40-6.38); RED CELL DISTRIBUTION WIDTH 15.5 % (11.5-15.2)
[2016-11-19 05:09] LABS: ANION GAP 9 mEq/L (8-16); CALCIUM 8.5 mg/dL (8.5-10.4); CARBON DIOXIDE 21 mEq/l (22-31); CHLORIDE 101 mEq/L (97-110); CREATININE 0.5 mg/dL (0.7-1.3); GLOMERULAR FILTRATION RATE > 60; GLUCOSE 67 mg/dL (70-100); MAGNESIUM 1.6 mg/dL (1.6-2.3); POTASSIUM 2.9 mEq/L (3.5-5.2); SODIUM 131 mEq/L (134-144)
[2016-11-19] MEDS: ceFAZolin 2 GM/DEXTROSE 100 ML IV SCH ×3 (06:15→21:34)
[2016-11-19] MEDS: NS 1,000 ML IV SCH (06:15)
[2016-11-19] MEDS: HEPARIN 5,000 UNIT/0.5 ML SYR SC SCH (06:15)
[2016-11-19] MEDS ORDERED: POTASSIUM CL 10 MEQ TAB PO ONE ×2 (07:50→19:33)
[2016-11-19] MEDS ORDERED: MAGNESIUM SULF 1 GM/DEXTROSE 100 ML IV ONE (07:50)
[2016-11-19] MEDS: ASPIRIN 81 MG CHEWABLE TAB PO SCH (08:32)
[2016-11-19] MEDS: METOPROLOL TARTRATE 50 MG TAB PO SCH (08:32)
[2016-11-19] MEDS: CHOLECALCIFEROL VIT D3 1,000 UNITS TAB PO SCH (08:32)
[2016-11-19] MEDS: OMEGA-3 FATTY ACIDS 1,000 MG CAP PO SCH ×2 (08:32→20:13)
[2016-11-19] MEDS: PRESERVISION AREDS2 FORMULA EYE VIT 1 EACH PO SCH ×2 (08:32→20:13)
[2016-11-19] MEDS: PIOGLITAZONE HCL 15 MG TAB PO SCH (08:33)
[2016-11-19] MEDS: RIVAROXABAN 15 MG TAB PO SCH (08:46)
--- NOTE | 2016-11-19 08:49 | SOAPPROG ---
SOAP Progress Note Assessment/Plan: Assessment: Plan: 11/17/16 10:00 sepsis with MSSA likely from left neck fluid accumulation, consult with surgery , continue antibiotics DM--d/c D5, SSI, lantus rapid a fib--increase metoprolol. h/o same with infection contrast exposure--hold metformin patient pulled out varela catheter bulb last night. Passing urine, but incontinent--follow 11/18/16 15:28 MSSA abscess left neck region--WBC improving Will follow progress, appreciate surgical and ID and Wet Milling Wheel Operator involvement. Continue IV Atbx follow progress DM glucose reasonable, resume metformin tomorrow low Na+ and low K+ --replacement protocol ordered rapid a fib--asymptomatic, continue with increase metoprolol dosing anticipate transfer to med surg as bed need arises, he is stable 11/19/16 08:48 MSSA blood culture + likely from left neck abscess. s/p I&D. WBC improving. BC's + from yesterday Appreciate ID and surgery inputs DM stable low k+ on replacement protocol brisk UOP will hold extra fluids given excellent po consumption rapid afib back to sinus anticoag--resume xarelto, stop heparin Subjective: Carroll says he is feeling ok. No challenges overnight. Neck ROM ok, no left shoulder pain. No rigors. No cough or SOB. Stools are loose Objective: Vital Signs Temp Pulse Resp BP Pulse Ox 36.5 C 90 22 H 132/76 H 97 11/19/16 07:50 11/19/16 07:50 11/19/16 07:50 11/19/16 08:32 11/19/16 07:50 Microbiology 11/17/16 12:45 Gram Stain - Final Neck - Aspirate Laboratory Results 11/19/16 04:45 11/19/16 04:45 11/18/16 11/19/16 11/20/16 05:59 05:59 05:59 Intake Total 3774 2257 Balance 3774 2257 PT 20.9 SEC (12.0-15.0) H 11/18/16 04:50 INR 1.79 (0.83-1.16) H 11/18/16 04:50 Gen: nad ,tired, pleasant Left neck: some serosanguineous drainage. Reduced TTP at left angle of the jaw Lungs: CTAB Heart: RRR back to sinus Abd + bs soft LE's 1+ edema WBC 12.7 K+ 2.9 (being replaced) ICD10 Worksheet Patient Problems: Problems Problem Status Onset Pneumonia Acute Sepsis Acute Atrial fibrillation and flutter Acute Cellulitis of right leg Acute Epididymitis Acute Fever and chills Acute Orchitis Acute Pneumonia due to aerobic bacteria Acute UTI (urinary tract infection) Acute
[2016-11-19] MEDS: INSULIN LISPRO 100 UNIT/ML SC SCH ×3 (09:03→19:04)
[2016-11-19] MEDS: SENNOSIDES/DOCUSATE SODIUM TAB PO SCH ×2 (09:07→20:13)
[2016-11-19] MEDS: INSULIN DETEMIR 36 UNIT SQ SCH (09:35)
[2016-11-19 11:11] LABS: IMMUNOGLOBULIN G4 13.8 mg/dL
--- NOTE | 2016-11-19 11:11 | PDINTPN ---
Exchange Clerk Progress Note Assessment/Plan: Assessment/Plan: * MSSA sepsis and bacteremia. On cephazolin. * Abscess/phlegmon related to the left neck/sternocleidomastoid muscle. Status post I&D under local anesthesia. Abscess drained. Quite extensive, from the base of the skull to the clavicle. Clinically doing well. * Paroxysmal atrial fibrillation, chronic anticoagulation. Will restart Xaralto tomorrow, give prophylactic heparin today. Hemodynamically stable despite atrial fibrillation. * Metabolic: Hypokalemia, will initiate replacement protocol. * GI prophylaxis: Eating. * DVT prophylaxis: Please see above. * Disposition-okay for transfer to med surg Subjective: Sitting up in chair. Comfortable. Denies any pain currently. Objective: Vital Signs Temp Pulse Resp BP Pulse Ox 36.5 C 90 22 H 132/76 H 97 11/19/16 07:50 11/19/16 07:50 11/19/16 07:50 11/19/16 08:32 11/19/16 07:50 Microbiology 11/17/16 12:45 Gram Stain - Final Neck - Aspirate Body Fluid Culture - Final Staphylococcus Aureus Laboratory Results 11/19/16 04:45 11/19/16 04:45 11/18/16 11/19/16 11/20/16 05:59 05:59 05:59 Intake Total 3774 2257 Balance 3774 2257 PT 20.9 SEC (12.0-15.0) H 11/18/16 04:50 INR 1.79 (0.83-1.16) H 11/18/16 04:50 Physical Exam - Physical Exam General Appearance: alert, no apparent distress EENT: PERRL/EOMI, normal ENT inspection Neck: other (Bandaged) Respiratory: chest non-tender, lungs clear, normal breath sounds Cardiac/Chest: normal peripheral pulses, regular rate, rhythm, systolic murmur Abdomen: normal bowel sounds, non-tender, soft Male Genitalia: deferred Rectal: deferred Skin: normal color, warm/dry Neuro/Psych: alert, oriented x 3 ICD10 Worksheet Patient Problems: Problems Problem Status Onset Pneumonia Acute Sepsis Acute Atrial fibrillation and flutter Acute Cellulitis of right leg Acute Epididymitis Acute Fever and chills Acute Orchitis Acute Pneumonia due to aerobic bacteria Acute UTI (urinary tract infection) Acute
--- NOTE | 2016-11-19 11:27 | PCMIDPN ---
Assessment/Plan: Assessment: MSSA bacteremia with a left neck abscess. The abscess certainly appears to be secondary and not primary. Shoulder pain and back pain have resolved. Would not embark upon imaging the back at this point in time. Currently his right hip is bothering him but this is new today. We will hold off on imaging evaluation and see if the symptoms persist. At this point continue cefazolin. We will recheck blood cultures tomorrow. If his blood cultures do not clear we will also expand imaging. Plan: 1. Continue IV cefazolin. 2. follow clinical complaints. 3. Repeat blood culture sets tomorrow morning. 11/19/16 11:24 Subjective: Patient is resting comfortably in his hospital room. He complains of some right hip pain. This is new today. Family corroborates this. States that his left shoulder and back pain has fully resolved since neck surgery. Objective: cefazolin # 3 Vital Signs Temp Pulse Resp BP Pulse Ox 36.5 C 90 22 H 132/76 H 97 11/19/16 07:50 11/19/16 07:50 11/19/16 07:50 11/19/16 08:32 11/19/16 07:50 Microbiology 11/17/16 12:45 Gram Stain - Final Neck - Aspirate Body Fluid Culture - Final Staphylococcus Aureus Laboratory Results 11/19/16 04:45 11/19/16 04:45 11/18/16 11/19/16 11/20/16 05:59 05:59 05:59 Intake Total 3774 2257 Balance 3774 2257 - Physical Exam General Appearance: WD/WN, alert, no apparent distress, non-toxic Respiratory: lungs clear, normal breath sounds, No respiratory distress Cardiac/Chest: regular rate, rhythm, No tachycardia, No systolic murmur Skin: normal color, warm/dry, No rash Neuro/Psych: alert, normal mood/affect, oriented x 3 ICD10 Worksheet Patient Problems: Problems Problem Status Onset Pneumonia Acute Sepsis Acute Atrial fibrillation and flutter Acute Cellulitis of right leg Acute Epididymitis Acute Fever and chills Acute Orchitis Acute Pneumonia due to aerobic bacteria Acute UTI (urinary tract infection) Acute
--- NOTE | 2016-11-19 18:14 | SOAPPROG ---
SOAP Progress Note Assessment/Plan: Assessment:no complaints. no further neck pain. afebrile. neck flat, no erythema, no further tenderness. drainage serosang. s/p i&d left SCM abscess. will remove drain tubes in the next few days. will not require further debridement. await path. cont abx as per ID. Plan: 11/19/16 18:13 Objective: Vital Signs Temp Pulse Resp BP Pulse Ox 36.4 C 89 97 H 140/83 H 2 L 11/19/16 16:00 11/19/16 16:00 11/19/16 16:00 11/19/16 16:00 11/19/16 16:00 Microbiology 11/17/16 12:45 Gram Stain - Final Neck - Aspirate Body Fluid Culture - Final Staphylococcus Aureus Laboratory Results 11/19/16 04:45 11/19/16 04:45 11/18/16 11/19/16 11/20/16 05:59 05:59 05:59 Intake Total 3774 2257 1120 Balance 3774 2257 1120 PT 20.9 SEC (12.0-15.0) H 11/18/16 04:50 INR 1.79 (0.83-1.16) H 11/18/16 04:50 ICD10 Worksheet Patient Problems: Problems Problem Status Onset Pneumonia Acute Sepsis Acute Atrial fibrillation and flutter Acute Cellulitis of right leg Acute Epididymitis Acute Fever and chills Acute Orchitis Acute Pneumonia due to aerobic bacteria Acute UTI (urinary tract infection) Acute
[2016-11-19 19:15] LABS: POTASSIUM 2.6 mEq/L (3.5-5.2)
[2016-11-19] MEDS: METOPROLOL TARTRATE 100 MG TAB PO SCH (20:12)
[2016-11-19] MEDS: NIACIN ER 1000 MG TAB.ER PO SCH (20:13)
[2016-11-20] MEDS: ceFAZolin 2 GM/DEXTROSE 100 ML IV SCH ×3 (05:05→21:00)
[2016-11-20 05:41] LABS: MAGNESIUM 1.5 mg/dL (1.6-2.3); POTASSIUM 3.2 mEq/L (3.5-5.2)
[2016-11-20] MEDS: INSULIN LISPRO 100 UNIT/ML SC SCH ×3 (07:40→18:14)
[2016-11-20] MEDS ORDERED: POTASSIUM CL 10 MEQ TAB PO ONE ×2 (07:42→20:40)
[2016-11-20] MEDS ORDERED: MAGNESIUM SULF 1 GM/DEXTROSE 100 ML IV ONE (07:43)
[2016-11-20] MEDS: METOPROLOL TARTRATE 50 MG TAB PO SCH ×2 (08:12→20:59)
[2016-11-20] MEDS: PRESERVISION AREDS2 FORMULA EYE VIT 1 EACH PO SCH ×2 (08:12→20:39)
[2016-11-20] MEDS: PIOGLITAZONE HCL 15 MG TAB PO SCH (08:13)
[2016-11-20] MEDS: CHOLECALCIFEROL VIT D3 1,000 UNITS TAB PO SCH (08:13)
[2016-11-20] MEDS: RIVAROXABAN 15 MG TAB PO SCH (08:14)
[2016-11-20] MEDS: OMEGA-3 FATTY ACIDS 1,000 MG CAP PO SCH ×2 (08:14→20:38)
[2016-11-20] MEDS: ASPIRIN 81 MG CHEWABLE TAB PO SCH (08:14)
--- NOTE | 2016-11-20 08:24 | SOAPPROG ---
SOAP Progress Note Assessment/Plan: Assessment: Neck abscess with Staph and persistent staph sepsis, SP drainage. Low K, Mild hyponatremia. New lung rales. Plan: Cont antibiotics. Incentive spirometry. Will check c-dif due to increased stools. Follow K+ 11/16/16 08:32 11/20/16 08:23 Subjective: Feelslk very weak. klPoor appetite. SOme frequent BM this AM. No shortness of breath. Objective: Vital Signs Temp Pulse Resp BP Pulse Ox 98.1 F 102 H 16 119/80 96 11/20/16 07:33 11/20/16 07:33 11/20/16 07:33 11/20/16 07:33 11/20/16 07:33 Microbiology 11/17/16 12:45 Gram Stain - Final Neck - Aspirate Body Fluid Culture - Final Staphylococcus Aureus Laboratory Results 11/19/16 04:45 11/20/16 05:13 11/19/16 11/20/16 11/21/16 05:59 05:59 05:59 Intake Total 2257 2095 Balance 2257 2095 PT 20.9 SEC (12.0-15.0) H 11/18/16 04:50 INR 1.79 (0.83-1.16) H 11/18/16 04:50 Lungs with bibasilar rales. No significant edema. COr witih irregular and mildly fast rhythm. No significant murmur. Abd non-tender. ICD10 Worksheet Patient Problems: Problems Problem Status Onset Pneumonia Acute Sepsis Acute Atrial fibrillation and flutter Acute Cellulitis of right leg Acute Epididymitis Acute Fever and chills Acute Orchitis Acute Pneumonia due to aerobic bacteria Acute UTI (urinary tract infection) Acute
[2016-11-20] MEDS: SENNOSIDES/DOCUSATE SODIUM TAB PO SCH ×3 (08:52→21:06)
--- NOTE | 2016-11-20 09:13 | PCMIDPN ---
Assessment/Plan: Assessment/Plan: 1. MSSA bacteremia/ sepsi secondary to Left anterior neck abscess: - s/p I &D on 11/18./. Cx with MSSA as well -Currently on Ancef therapy. -wbc improving. -blood cx from 11/16 and 11/18 positive. f/u blood cx today to evaluate adequate response to therapy. Meds Ancef 2g q8- 11/16/16 Subjective: Afebrile. feeling better. less neck pain. denies sob, couhg, phlegm. on o2 at 2L. denies abd pain or diarrhea. diane drain present.sitting up eating breakfast. Objective: Vital Signs Temp Pulse Resp BP Pulse Ox 36.7 C 102 H 16 119/80 96 11/20/16 07:33 11/20/16 07:33 11/20/16 07:33 11/20/16 07:33 11/20/16 07:33 Microbiology 11/17/16 12:45 Gram Stain - Final Neck - Aspirate Body Fluid Culture - Final Staphylococcus Aureus Laboratory Results 11/19/16 04:45 11/20/16 05:13 11/19/16 11/20/16 11/21/16 05:59 05:59 05:59 Intake Total 2256 2095 Balance 2257 2094 - Physical Exam General Appearance: alert, no apparent distress EENT: other (diane drain noted on left anterior neck. some induration present.nontender.) Respiratory: lungs clear Cardiac/Chest: regular rate, rhythm Extremities: No swelling Skin: No rash ICD10 Worksheet Patient Problems: Problems Problem Status Onset Pneumonia Acute Sepsis Acute Atrial fibrillation and flutter Acute Cellulitis of right leg Acute Epididymitis Acute Fever and chills Acute Orchitis Acute Pneumonia due to aerobic bacteria Acute UTI (urinary tract infection) Acute
[2016-11-20] MEDS: INSULIN DETEMIR 36 UNIT SQ SCH (09:32)
[2016-11-20] MEDS: POTASSIUM CL 20 MEQ TAB PO SCH ×2 (10:13→20:39)
[2016-11-20] MEDS: ACETAMINOPHEN 325 MG TAB PO PRN (12:53)
--- NOTE | 2016-11-20 14:23 | ASMTCASEMG ---
Living Arrangements What is your living arrangement? Who do you live Answers: With Spouse with? Type Of Residence What kind of residence do you live in? Answers: House Case Management Evaluation Functional: Able to return Home with Prior Level Answers: No of Function/Care Functional: ADL / IADL Performance Deficits Due Answers: Mobility Issues to: Other Notes: r leg cellulitis Discharge Plan Comments Coordination Status Comments Notes: 86yo pt admitted for afib, sepsis-UTI, PNE; neck abscess, R leg cellulitis. He has a hx of DM. Wif e and DTR went to visit facilities yesterday and really liked [facility]. Pt has [employer] and [facility] does contract w/that ins. Pt info sent to [facility]. Date Signed: 11/20/2016 02:18 PM Electronically Signed By:Nga Jones
--- NOTE | 2016-11-20 18:53 | SOAPPROG ---
SOAP Progress Note Assessment/Plan: Assessment: neck pain resolved. afebrile. neck flat, no erythema, no drainage. s/p i&d left SCM abscess-MSSA. will remove drain tubes 1-2 days. will not require further debridement. awaiting path. cont abx as per ID. Plan: 11/19/16 18:13 11/20/16 18:52 11/20/16 18:54 Objective: Vital Signs Temp Pulse Resp BP Pulse Ox 36.4 C 90 16 142/83 H 95 11/20/16 18:07 11/20/16 18:07 11/20/16 18:07 11/20/16 18:07 11/20/16 18:07 Laboratory Results 11/19/16 04:45 11/20/16 05:13 11/19/16 11/20/16 11/21/16 05:59 05:59 05:59 Intake Total 2257 2095 Output Total 1 Balance 2257 2095 -1 PT 20.9 SEC (12.0-15.0) H 11/18/16 04:50 INR 1.79 (0.83-1.16) H 11/18/16 04:50 ICD10 Worksheet Patient Problems: Problems Problem Status Onset Pneumonia Acute Sepsis Acute Atrial fibrillation and flutter Acute Cellulitis of right leg Acute Epididymitis Acute Fever and chills Acute Orchitis Acute Pneumonia due to aerobic bacteria Acute UTI (urinary tract infection) Acute
[2016-11-20 20:30] LABS: POTASSIUM 3.6 mEq/L (3.5-5.2)
[2016-11-20] MEDS: NIACIN ER 1000 MG TAB.ER PO SCH (21:07)
[2016-11-21] MEDS: ceFAZolin 2 GM/DEXTROSE 100 ML IV SCH ×3 (05:13→21:23)
[2016-11-21 05:49] LABS: MAGNESIUM 1.6 mg/dL (1.6-2.3); POTASSIUM 3.4 mEq/L (3.5-5.2)
--- NOTE | 2016-11-21 08:52 | SOAPPROG ---
SOAP Progress Note Assessment/Plan: Assessment: Plan: 11/17/16 10:00 sepsis with MSSA likely from left neck fluid accumulation, consult with surgery , continue antibiotics DM--d/c D5, SSI, lantus rapid a fib--increase metoprolol. h/o same with infection contrast exposure--hold metformin patient pulled out varela catheter bulb last night. Passing urine, but incontinent--follow 11/18/16 15:28 MSSA abscess left neck region--WBC improving Will follow progress, appreciate surgical and ID and Associate Application Developer involvement. Continue IV Atbx follow progress DM glucose reasonable, resume metformin tomorrow low Na+ and low K+ --replacement protocol ordered rapid a fib--asymptomatic, continue with increase metoprolol dosing anticipate transfer to med surg as bed need arises, he is stable 11/19/16 08:48 MSSA blood culture + likely from left neck abscess. s/p I&D. WBC improving. BC's + from yesterday Appreciate ID and surgery inputs DM stable low k+ on replacement protocol brisk UOP will hold extra fluids given excellent po consumption rapid afib back to sinus anticoag--resume xarelto, stop heparin 11/21/16 08:52 persistently + blood cultures, will check CXR and Right hip films, repeat CBC today. Appreciate ID input sepsis--stable now k+ low--on replacement DM stable BP elevated, add lisinopril which should help retain some potassium as well a fib--rate controlled now anticoag--xarelto neck abscess--drained, diane in place. May need repeat neck CT, will await ID and surgical input Subjective: Poor sleep. Eating better today. Denies cough. Admits to some HS confusion. Lateral right hip pain persists. Denies neck or shoulder pain. No F/C. Loose stools are less of an issue Objective: Vital Signs Temp Pulse Resp BP Pulse Ox 36.5 C 74 16 162/80 H 94 11/21/16 08:00 11/21/16 08:00 11/21/16 08:00 11/21/16 08:00 11/21/16 08:00 Laboratory Results 11/19/16 04:45 11/21/16 05:06 11/20/16 11/21/16 11/22/16 05:59 05:59 05:59 Intake Total 2095 Output Total 1 Balance 2094 - PT 20.9 SEC (12.0-15.0) H 11/18/16 04:50 INR 1.79 (0.83-1.16) H 11/18/16 04:50 Gen: Good color. Sitting upright without oxygen eating breakfast upon entering room. Pleasant HEENT: scalp inflammation and eschar has improved Left neck diane in place. Less tenderness and erythema Lungs: faint crackles left base, diminished BS, dry cough Heart: rate controlled, some mild irregularity on auscultation Abd + bs soft NT Right hip--some mild-mod TTP laterally LE's stable mild edema BP elevated K+ mildly low CBC pending 11/20 BCX's appear to be + ICD10 Worksheet Patient Problems: Problems Problem Status Onset Pneumonia Acute Sepsis Acute Atrial fibrillation and flutter Acute Cellulitis of right leg Acute Epididymitis Acute Fever and chills Acute Orchitis Acute Pneumonia due to aerobic bacteria Acute UTI (urinary tract infection) Acute
[2016-11-21] MEDS ORDERED: POTASSIUM CL 10 MEQ TAB PO ONE ×2 (09:00→21:13)
[2016-11-21] MEDS ORDERED: MAGNESIUM SULF 1 GM/DEXTROSE 100 ML IV ONE (09:00)
--- NOTE | 2016-11-21 09:51 | PCMIDPN ---
Assessment/Plan: Assessment/Plan: * MSSA bacteremia with concomitant left-sided neck abscess: Persistent bacteremia with 1/2 sets of blood culture showing GPCs in clusters from 2016. Right hip pain has recurred after being absent yesterday. Will proceed with MRI of the right hip to assess for joint effusion or osteomyelitis given risk of metastatic seeding in the setting of MSSA bacteremia. Imaging may have some limitations given hip arthroplasty. Otherwise has shown clinical improvement with decreased white blood cell count and resolution of neck and shoulder pain. Continue cefazolin. Repeat blood cultures in a.m. to assess for clearing of bacteremia. 11/21/16 09:48 Subjective: Patient complains of recurrent right hip pain which has limited walking today. This was absent yesterday he was able to ambulate without pain. No neck pain or shoulder pain on left. Objective: Vital Signs Temp Pulse Resp BP Pulse Ox 36.5 C 74 16 162/80 H 94 11/21/16 08:00 11/21/16 08:00 11/21/16 08:00 11/21/16 08:00 11/21/16 08:00 Microbiology 11/20/16 10:00 Blood Panel (PCR) - Final Blood S.aureus Methicillin Suscept. Laboratory Results 11/19/16 04:45 11/21/16 05:06 11/20/16 11/21/16 11/22/16 05:59 05:59 05:59 Intake Total 2095 Output Total 1 Balance 2095 -1 Cefazolin # 5 Blood cultures 1/2 sets 11/20/2016 MSSA - Physical Exam General Appearance: alert, no apparent distress EENT: No thrush, No conjunctival petechiae Respiratory: lungs clear, No respiratory distress Neck: supple, other (Rajendra drains in place over left anterior neck without drainage; no tenderness or fluctuance or overlying erythema) Cardiac/Chest: regular rate, rhythm, No systolic murmur Extremities: other (Mild tenderness to palpation over lateral right hip; no pain with range of motion) Abdomen: non-tender, No distended Skin: No embolic lesions ICD10 Worksheet Patient Problems: Problems Problem Status Onset Pneumonia Acute Sepsis Acute Atrial fibrillation and flutter Acute Cellulitis of right leg Acute Epididymitis Acute Fever and chills Acute Orchitis Acute Pneumonia due to aerobic bacteria Acute UTI (urinary tract infection) Acute
[2016-11-21] MEDS: SENNOSIDES/DOCUSATE SODIUM TAB PO SCH ×2 (09:59→21:25)
[2016-11-21] MEDS: LISINOPRIL 5 MG TAB PO SCH (09:59)
[2016-11-21] MEDS: RIVAROXABAN 15 MG TAB PO SCH (09:59)
[2016-11-21] MEDS: CHOLECALCIFEROL VIT D3 1,000 UNITS TAB PO SCH (09:59)
[2016-11-21] MEDS: PRESERVISION AREDS2 FORMULA EYE VIT 1 EACH PO SCH ×2 (09:59→19:57)
[2016-11-21] MEDS: METOPROLOL TARTRATE 50 MG TAB PO SCH ×2 (09:59→19:57)
[2016-11-21] MEDS: OMEGA-3 FATTY ACIDS 1,000 MG CAP PO SCH ×2 (09:59→19:57)
[2016-11-21] MEDS: POTASSIUM CL 20 MEQ TAB PO SCH ×2 (10:00→19:57)
[2016-11-21] MEDS: ASPIRIN 81 MG CHEWABLE TAB PO SCH (10:00)
[2016-11-21] MEDS: INSULIN LISPRO 100 UNIT/ML SC SCH ×3 (10:01→17:58)
[2016-11-21] MEDS: INSULIN DETEMIR 36 UNIT SQ SCH (10:12)
[2016-11-21] MEDS: PIOGLITAZONE HCL 15 MG TAB PO SCH (10:12)
--- NOTE | 2016-11-21 10:41 | SOAPPROG ---
SOAP Progress Note Assessment/Plan: Assessment: neck pain remains resolved. MSSA persists on BCx yest. recurrent hip pain noted. neck flat, no erythema, no drainage. s/p i&d left SCM abscess- MSSA. will remove drain tubes 1-2 days. will not require further debridement. awaiting path. cont abx as per ID. hip imaging as per other services. Plan: 11/19/16 18:13 11/20/16 18:52 11/20/16 18:54 11/21/16 10:40 Objective: Vital Signs Temp Pulse Resp BP Pulse Ox 36.5 C 74 16 162/80 H 94 11/21/16 08:00 11/21/16 08:00 11/21/16 08:00 11/21/16 08:00 11/21/16 08:00 Microbiology 11/20/16 10:00 Blood Panel (PCR) - Final Blood S.aureus Methicillin Suscept. Laboratory Results 11/19/16 04:45 11/21/16 05:06 11/20/16 11/21/16 11/22/16 05:59 05:59 05:59 Intake Total 2095 Output Total 1 Balance 5 -1 PT 20.9 SEC (12.0-15.0) H 11/18/16 04:50 INR 1.79 (0.83-1.16) H 11/18/16 04:50 ICD10 Worksheet Patient Problems: Problems Problem Status Onset Pneumonia Acute Sepsis Acute Atrial fibrillation and flutter Acute Cellulitis of right leg Acute Epididymitis Acute Fever and chills Acute Orchitis Acute Pneumonia due to aerobic bacteria Acute UTI (urinary tract infection) Acute
[2016-11-21 11:13] LABS: ADD DIFF? YES; ADD MORPH? NO; ADD SCAN? NO; ATYPICAL LYMPHOCYTE FLAG 20 (0-99); FRAGMENT RBC FLAG 0 (0-99); HEMATOCRIT 36.5 % (40.0-51.0); HEMOGLOBIN 13.1 g/dL (13.7-17.5); LEFT SHIFT FLG 20 (0-99); LIPEMIA HEMOLYSIS FLAG 90 (0-99); MEAN CELL HEMOGLOBIN 29.8 pg (27.9-34.1); MEAN CELL HEMOGLOBIN CONCENTR. 35.9 g/dL (32.4-36.7); MEAN PLATELET VOLUME 10.6 fL (8.7-11.7); PLATELET CLUMPS FLAG 0 (0-99); PLATELET COUNT 189 10^3/uL (150-400); RED CELL DISTRIBUTION WIDTH 14.8 % (11.5-15.2)
[2016-11-21 11:33] LABS: ALANINE AMINOTRANSFERASE 73 IU/L (21-72); ALBUMIN 2.4 g/dL (3.5-5.0); ALKALINE PHOSPHATASE 283 IU/L (38-126); ANION GAP 8 mEq/L (8-16); ASPARTATE AMINOTRANSFERASE 110 IU/L (17-59); BILIRUBIN,TOTAL 1.2 mg/dL (0.1-1.4); CALCIUM 8.6 mg/dL (8.5-10.4); CARBON DIOXIDE 23 mEq/l (22-31); CHLORIDE 95 mEq/L (97-110); CREATININE 0.5 mg/dL (0.7-1.3); GLOMERULAR FILTRATION RATE > 60; GLUCOSE 198 mg/dL (70-100); POTASSIUM 3.4 mEq/L (3.5-5.2); SODIUM 126 mEq/L (134-144); TOTAL PROTEIN 5.2 g/dL (6.3-8.2)
[2016-11-21 11:38] LABS: PLATELET ESTIMATE ADEQUATE (ADEQ)
[2016-11-21] MEDS ORDERED: GADOBUTROL 10 ML VIAL IVP ONE (14:36)
[2016-11-21 18:29] LABS: POTASSIUM 3.7 mEq/L (3.5-5.2)
[2016-11-21] MEDS: NIACIN ER 1000 MG TAB.ER PO SCH (19:57)
[2016-11-21] MEDS: traMADol 50 MG TAB PO PRN (21:23)
[2016-11-22] MEDS: NS 1,000 ML IV SCH (04:44)
[2016-11-22] MEDS: ceFAZolin 2 GM/DEXTROSE 100 ML IV SCH ×3 (05:06→21:13)
[2016-11-22 05:13] LABS: ADD DIFF? YES; ADD MORPH? NO; ADD SCAN? NO; ATYPICAL LYMPHOCYTE FLAG 30 (0-99); FRAGMENT RBC FLAG 20 (0-99); HEMATOCRIT 34.9 % (40.0-51.0); HEMOGLOBIN 12.5 g/dL (13.7-17.5); LEFT SHIFT FLG 20 (0-99); LIPEMIA HEMOLYSIS FLAG 90 (0-99); MEAN CELL HEMOGLOBIN 29.7 pg (27.9-34.1); MEAN CELL HEMOGLOBIN CONCENTR. 35.8 g/dL (32.4-36.7); MEAN CELL VOLUME 82.9 fL (81.5-99.8); MEAN PLATELET VOLUME 10.9 fL (8.7-11.7); PLATELET CLUMPS FLAG 20 (0-99); PLATELET COUNT 225 10^3/uL (150-400); RED BLOOD CELL COUNT 4.21 10^6/uL (4.40-6.38); RED CELL DISTRIBUTION WIDTH 15.1 % (11.5-15.2)
[2016-11-22 05:30] LABS: ALANINE AMINOTRANSFERASE 83 IU/L (21-72); ALBUMIN 2.3 g/dL (3.5-5.0); ALKALINE PHOSPHATASE 331 IU/L (38-126); ANION GAP 11 mEq/L (8-16); ASPARTATE AMINOTRANSFERASE 114 IU/L (17-59); BILIRUBIN,TOTAL 1.2 mg/dL (0.1-1.4); CALCIUM 8.4 mg/dL (8.5-10.4); CARBON DIOXIDE 23 mEq/l (22-31); CHLORIDE 96 mEq/L (97-110); CREATININE 0.5 mg/dL (0.7-1.3); GLOMERULAR FILTRATION RATE > 60; GLUCOSE 199 mg/dL (70-100); MAGNESIUM 1.6 mg/dL (1.6-2.3); SODIUM 130 mEq/L (134-144)
[2016-11-22 06:26] LABS: MICROCYTES 1+; PLATELET ESTIMATE ADEQUATE (ADEQ)
[2016-11-22] MEDS: OMEGA-3 FATTY ACIDS 1,000 MG CAP PO SCH ×2 (07:59→20:04)
[2016-11-22] MEDS: LISINOPRIL 5 MG TAB PO SCH (08:00)
[2016-11-22] MEDS: POTASSIUM CL 20 MEQ TAB PO SCH ×2 (08:00→20:03)
[2016-11-22] MEDS: PIOGLITAZONE HCL 15 MG TAB PO SCH (08:00)
[2016-11-22] MEDS: SENNOSIDES/DOCUSATE SODIUM TAB PO SCH ×2 (08:00→20:05)
[2016-11-22] MEDS: METOPROLOL TARTRATE 50 MG TAB PO SCH ×3 (08:00→20:07)
[2016-11-22] MEDS: CHOLECALCIFEROL VIT D3 1,000 UNITS TAB PO SCH (08:00)
[2016-11-22] MEDS: PRESERVISION AREDS2 FORMULA EYE VIT 1 EACH PO SCH ×2 (08:00→20:08)
[2016-11-22] MEDS: ASPIRIN 81 MG CHEWABLE TAB PO SCH (08:01)
[2016-11-22] MEDS: INSULIN LISPRO 100 UNIT/ML SC SCH ×3 (08:10→17:41)
[2016-11-22] MEDS: INSULIN DETEMIR 36 UNIT SQ SCH (08:11)
--- NOTE | 2016-11-22 08:35 | SOAPPROG ---
SOAP Progress Note Assessment/Plan: Assessment: Plan: 11/17/16 10:00 sepsis with MSSA likely from left neck fluid accumulation, consult with surgery , continue antibiotics DM--d/c D5, SSI, lantus rapid a fib--increase metoprolol. h/o same with infection contrast exposure--hold metformin patient pulled out varela catheter bulb last night. Passing urine, but incontinent--follow 11/18/16 15:28 MSSA abscess left neck region--WBC improving Will follow progress, appreciate surgical and ID and Statistical Methods Professor involvement. Continue IV Atbx follow progress DM glucose reasonable, resume metformin tomorrow low Na+ and low K+ --replacement protocol ordered rapid a fib--asymptomatic, continue with increase metoprolol dosing anticipate transfer to med surg as bed need arises, he is stable 11/19/16 08:48 MSSA blood culture + likely from left neck abscess. s/p I&D. WBC improving. BC's + from yesterday Appreciate ID and surgery inputs DM stable low k+ on replacement protocol brisk UOP will hold extra fluids given excellent po consumption rapid afib back to sinus anticoag--resume xarelto, stop heparin 11/21/16 08:52 persistently + blood cultures, will check CXR and Right hip films, repeat CBC today. Appreciate ID input sepsis--stable now k+ low--on replacement DM stable BP elevated, add lisinopril which should help retain some potassium as well a fib--rate controlled now anticoag--xarelto neck abscess--drained, diane in place. May need repeat neck CT, will await ID and surgical input 11/22/16 08:34 + blood cultures, MRI with fluid collection about right hip IR consult for sampling today, Xarelto held. Appreciate ID guidance HTN--first dose of lisinopril today hypokalemia--improved hyponatremia--improved DM2--continue with lantus + SSI bacteremia--prior sepsis, stable mild elevation of LFT's follow Subjective: The patient states he slept well last night. No awareness of right hip pain this am as he has yet to get out of bed. He denies other complaints Objective: Vital Signs Temp Pulse Resp BP Pulse Ox 36.7 C 71 16 163/81 H 91 L 11/22/16 07:45 11/22/16 08:00 11/22/16 07:45 11/22/16 08:00 11/22/16 07:45 Microbiology 11/20/16 10:00 Blood Panel (PCR) - Final Blood S.aureus Methicillin Suscept. Laboratory Results 11/22/16 04:25 11/22/16 04:25 11/21/16 11/22/16 11/23/16 05:59 05:59 05:59 Intake Total 800 Output Total 1 500 Balance -1 300 PT 20.9 SEC (12.0-15.0) H 11/18/16 04:50 INR 1.79 (0.83-1.16) H 11/18/16 04:50 Gen: marketing data specialist HEENT: left neck non-tender, scant drainage Lungs: CTAB Heart: grossly regular, no murmur BP 160's systolic Abd + bs soft MRI right hip--fluid collection concerning for infection LE's stable mild edema K+ 4.0 Na+ 130 WBC 13.1 ICD10 Worksheet Patient Problems: Problems Problem Status Onset Pneumonia Acute Sepsis Acute Atrial fibrillation and flutter Acute Cellulitis of right leg Acute Epididymitis Acute Fever and chills Acute Orchitis Acute Pneumonia due to aerobic bacteria Acute UTI (urinary tract infection) Acute
[2016-11-22] MEDS ORDERED: MAGNESIUM SULF 1 GM/DEXTROSE 100 ML IV ONE (09:30)
--- NOTE | 2016-11-22 10:21 | PCMIDPN ---
Assessment/Plan: Assessment: MSSA bacteremia with a left neck abscess. The abscess certainly appears to be secondary and not primary. Shoulder pain and back pain have resolved. Would not embark upon imaging the back at this point in time. Imaging of the right lower extremity by MRI revealed a 5 cm collection in the right gluteus. This is undoubtedly an MSSA abscess. Blood cultures remain persistently positive. This may be the locus of persistence. This will be drained in interventional Radiology later today. Plan: 1. Continue IV cefazolin. 2. follow repeat blood culture sets. 11/19/16 11:24 11/22/16 10:18 Subjective: Patient appears stronger and more alert today. He is able to stand for long periods of time with a walker. Denies right hip per gluteal pain today. No fevers or chills. Some mild confusion. Objective: Cefazolin #6 Vital Signs Temp Pulse Resp BP Pulse Ox 36.7 C 71 16 163/81 H 91 L 11/22/16 07:45 11/22/16 08:00 11/22/16 07:45 11/22/16 08:00 11/22/16 07:45 Microbiology 11/20/16 10:00 Blood Panel (PCR) - Final Blood S.aureus Methicillin Suscept. Laboratory Results 11/22/16 04:25 11/22/16 04:25 11/21/16 11/22/16 11/23/16 05:59 05:59 05:59 Intake Total 800 Output Total 1 500 Balance -1 300 C-Reactive Protein 72.9 mg/L (<10.0) H 11/21/16 11:01 - Physical Exam General Appearance: WD/WN, alert, no apparent distress, non-toxic Respiratory: lungs clear, normal breath sounds, No respiratory distress Cardiac/Chest: regular rate, rhythm, No tachycardia Extremities: non-tender, normal inspection Skin: normal color, warm/dry, No rash Neuro/Psych: alert, normal mood/affect, oriented x 3 ICD10 Worksheet Patient Problems: Problems Problem Status Onset Pneumonia Acute Sepsis Acute Atrial fibrillation and flutter Acute Cellulitis of right leg Acute Epididymitis Acute Fever and chills Acute Orchitis Acute Pneumonia due to aerobic bacteria Acute UTI (urinary tract infection) Acute
--- NOTE | 2016-11-22 10:41 | WOCRNPDOC ---
TEN Advanced Assessment Note - Skin Integrity Problem, Advanced Assess Coccyx Dressing Type: Allevyn Life Dressing Description: Clean/Dry, Intact Exudate Amount: None Integumentary Issue Intervention: Dressing Removed [place] Wound Tissue: Blanching, Erythema, Macerated, Scarred (scar tissue circumferentially as wound has opened and closed multiple times over course of 5 years) Wound Bed Color: [place], Yellow Wound Bed Constitution: Smooth Tissue Wound Edges: Attached, Not Attached Site Measurement - Head-to-Toe Length X Width X Depth (cm): 2x0.5x0.3 Pressure Injury Stage: Stage 3 Pressure Injury Present on Admit: No Skin Integrity Problem Comment: Patient reports "bed sore" present on and off for 5 years of unknown stage. Wound currently is 1/2 partial thickness and 1/2 full thickness and per measurements has devolved from it's previous assessment measurements. Aggressive offloading and repositioning necessary. Also of note there is a 0.8x2.8x0.1 area of friction injury with partial thickness opening on left buttock with surrounding xerotic and flaky skin. Margo HUGHES in room for care and assessment. Patient did not have any questions about his wound. Reported plan to ELLEN Kay.
[2016-11-22] MEDS ORDERED: LIDOCAINE 1% 300 MG/30 ML SDV ONE (14:12)
--- NOTE | 2016-11-22 15:03 | ASMTCMCOM ---
CM Note CM Note Notes: [facility] has accepted pt. Faxed labs and latest MD notes. DC unclear. CM to follow. Date Signed: 11/22/2016 03:02 PM Electronically Signed By:Dayan Long
[2016-11-22 19:53] LABS: POTASSIUM 3.7 mEq/L (3.5-5.2)
[2016-11-22] MEDS: NIACIN ER 1000 MG TAB.ER PO SCH (20:04)
[2016-11-22] MEDS: traMADol 50 MG TAB PO PRN (20:04)
[2016-11-22] MEDS ORDERED: POTASSIUM CL 10 MEQ TAB PO ONE (21:10)
[2016-11-23 04:56] LABS: ADD DIFF? YES; ADD MORPH? NO; ADD SCAN? NO; ATYPICAL LYMPHOCYTE FLAG 20 (0-99); FRAGMENT RBC FLAG 0 (0-99); HEMATOCRIT 33.6 % (40.0-51.0); HEMOGLOBIN 11.9 g/dL (13.7-17.5); LEFT SHIFT FLG 10 (0-99); LIPEMIA HEMOLYSIS FLAG 90 (0-99); MEAN CELL HEMOGLOBIN 29.9 pg (27.9-34.1); MEAN CELL HEMOGLOBIN CONCENTR. 35.4 g/dL (32.4-36.7); MEAN CELL VOLUME 84.4 fL (81.5-99.8); MEAN PLATELET VOLUME 10.3 fL (8.7-11.7); PLATELET CLUMPS FLAG 0 (0-99); PLATELET COUNT 218 10^3/uL (150-400); RED BLOOD CELL COUNT 3.98 10^6/uL (4.40-6.38); RED CELL DISTRIBUTION WIDTH 15.5 % (11.5-15.2)
[2016-11-23 05:04] LABS: ALANINE AMINOTRANSFERASE 55 IU/L (21-72); ALBUMIN 2.1 g/dL (3.5-5.0); ALKALINE PHOSPHATASE 266 IU/L (38-126); ANION GAP 5 mEq/L (8-16); ASPARTATE AMINOTRANSFERASE 64 IU/L (17-59); BILIRUBIN,TOTAL 1.2 mg/dL (0.1-1.4); CALCIUM 8.3 mg/dL (8.5-10.4); CARBON DIOXIDE 25 mEq/l (22-31); CHLORIDE 99 mEq/L (97-110); CREATININE 0.5 mg/dL (0.7-1.3); GLOMERULAR FILTRATION RATE > 60; GLUCOSE 82 mg/dL (70-100); MAGNESIUM 1.8 mg/dL (1.6-2.3); POTASSIUM 3.8 mEq/L (3.5-5.2); SODIUM 129 mEq/L (134-144); TOTAL PROTEIN 4.9 g/dL (6.3-8.2)
[2016-11-23] MEDS: ceFAZolin 2 GM/DEXTROSE 100 ML IV SCH ×3 (05:16→20:58)
[2016-11-23] MEDS: NS 1,000 ML IV SCH (05:16)
[2016-11-23 05:39] LABS: PLATELET ESTIMATE ADEQUATE (ADEQ); POLYCHROMASIA 1+; TARGET CELLS 1+
[2016-11-23 05:54] LABS: TOXIC GRANULATION PRESENT
[2016-11-23] MEDS: INSULIN LISPRO 100 UNIT/ML SC SCH ×3 (08:22→17:53)
[2016-11-23] MEDS ORDERED: POTASSIUM CL 10 MEQ TAB PO ONE (08:23)
[2016-11-23] MEDS: PRESERVISION AREDS2 FORMULA EYE VIT 1 EACH PO SCH ×2 (08:29→20:57)
[2016-11-23] MEDS: SENNOSIDES/DOCUSATE SODIUM TAB PO SCH ×2 (08:30→21:00)
[2016-11-23] MEDS: POTASSIUM CL 20 MEQ TAB PO SCH ×2 (08:30→20:57)
[2016-11-23] MEDS: PIOGLITAZONE HCL 15 MG TAB PO SCH (08:30)
[2016-11-23] MEDS: LISINOPRIL 5 MG TAB PO SCH (08:30)
[2016-11-23] MEDS: ASPIRIN 81 MG CHEWABLE TAB PO SCH (08:30)
[2016-11-23] MEDS: OMEGA-3 FATTY ACIDS 1,000 MG CAP PO SCH ×2 (08:30→20:57)
[2016-11-23] MEDS: CHOLECALCIFEROL VIT D3 1,000 UNITS TAB PO SCH (08:30)
[2016-11-23] MEDS: METOPROLOL TARTRATE 50 MG TAB PO SCH ×2 (08:30→20:56)
[2016-11-23] MEDS: RIVAROXABAN 15 MG TAB PO SCH (09:32)
[2016-11-23] MEDS: NON-FORMULARY NEW DRUG (Insulin Detemir [Levemir] 20 UNIT) SQ SCH (09:32)
--- NOTE | 2016-11-23 09:43 | PCMIDPN ---
Assessment/Plan: 1. 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 Repeat blood cultures are pending. Continue Ancef. Suspect Rajendra drain in the neck can be removed today. 2. Intertriginous candidiasis: Start nystatin powder twice daily. 3.? injection site reaction lower abdomen: This looks more consistent with an injection site reaction vs. abscess. It is not fluctuant. Have asked nursing staff to apply cool packs. 11/23/16 09:39 Subjective: Status post drainage of small abscess noted on MRI in the right gluteus medius. Approximately 5 cc of purulent debris was removed. G stain shows 3+ gpc's. Patient is his usual stoical Self. Denies pain in any other joints, and feels that he is getting better. Has not gotten up yet this morning. No diarrhea. Ate breakfast. Objective: Ancef 2 g IV q.8 hours day 7 Afebrile Vital Signs Temp Pulse Resp BP Pulse Ox 36.5 C 65 20 159/77 H 92 11/23/16 07:39 11/23/16 08:30 11/23/16 07:39 11/23/16 08:30 11/23/16 07:39 Microbiology 11/18/16 05:02 Blood Culture - Final Blood Staphylococcus Aureus 11/20/16 10:00 Blood Panel (PCR) - Final Blood S.aureus Methicillin Suscept. 11/18/16 04:50 Blood Culture - Final Blood Staphylococcus Aureus 11/22/16 Unknown Gram Stain - Final Buttock - Aspirate Laboratory Results 11/23/16 04:30 11/23/16 04:30 11/22/16 11/23/16 11/24/16 05:59 05:59 05:59 Intake Total 800 1450 Output Total 500 2100 700 Balance 300 -650 -700 C-Reactive Protein 72.9 mg/L (<10.0) H 11/21/16 11:01 blood cultures 831 pending Blood cultures 11/20 2 sets, 2/4 bottles positive with MSSA - Physical Exam General Appearance: other ( elderly male, lying in bed, very pleasant. Nontoxic. Looks much more comfortable compared to when I saw him last in the intensive care unit.) EENT: No scleral icterus, No thrush Respiratory: lungs clear Neck: other ( Left neck: no residual fluctuance. Rajendra drain in place, appears dry. No active drainage. I could not milk anything from the drain. No significant tenderness to palpation along the sternocleidomastoid. His neck is supple.) Cardiac/Chest: regular rate, rhythm Abdomen: non-tender, soft, other ( Small elliptical area of erythema left lower abdomen with underlying nodule, not fluctuant. Not particularly tender. It appears to be at the site of an injection.) Male Genitalia: other ( Patient's right buttock has a Band-Aid over the site of aspiration. No fluctuance or overlying skin changes. It is mildly tender.) Back: other Skin: other ( Patient's inguinal area is notable for), No embolic lesions ( Multiple scabs /seborrheic keratoses and breaks in the skin.), No fluctuance Neuro/Psych: no motor/sensory deficits, normal mood/affect, oriented x 3, aphasia (Inguinal area bilaterally notable for skin maceration/ white plaques consistent with intravenous candidiasis) ICD10 Worksheet Patient Problems: Problems Problem Status Onset Pneumonia Acute Sepsis Acute Atrial fibrillation and flutter Acute Cellulitis of right leg Acute Epididymitis Acute Fever and chills Acute Orchitis Acute Pneumonia due to aerobic bacteria Acute UTI (urinary tract infection) Acute
[2016-11-23] MEDS: NYSTATIN POWDER 15 GM BTL TP SCH ×3 (10:29→21:04)
--- NOTE | 2016-11-23 10:38 | SOAPPROG ---
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 Mild hyponatremia, hypertension. Continuing to follow blood cultures and treat bacteremia. 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 -Hypertension- on home dose of metop, started on lisinopril yesterday, will continue to monitor BP and adjust as needed -Hyponatremia- improved, will continue to follow -DM2- lantus + SSI -Mild elevation of LFTs- follow 11/23/16 10:44 Subjective: Pt is resting comfortably in bed this morning. Overall says he is feeling better, but not quite strong enough yet. He has been out of bed a handful of times and is still weak. He also reports a decreased appetite. Objective: Vital Signs Temp Pulse Resp BP Pulse Ox 97.7 F 65 20 159/77 H 92 11/23/16 07:39 11/23/16 08:30 11/23/16 07:39 11/23/16 08:30 11/23/16 07:39 Microbiology 11/18/16 05:02 Blood Culture - Final Blood Staphylococcus Aureus 11/20/16 10:00 Blood Panel (PCR) - Final Blood S.aureus Methicillin Suscept. 11/18/16 04:50 Blood Culture - Final Blood Staphylococcus Aureus 11/22/16 Unknown Gram Stain - Final Buttock - Aspirate Laboratory Results 11/23/16 04:30 11/23/16 04:30 11/22/16 11/23/16 11/24/16 05:59 05:59 05:59 Intake Total 800 1450 Output Total 500 2100 700 Balance 300 -650 -700 PT 20.9 SEC (12.0-15.0) H 11/18/16 04:50 INR 1.79 (0.83-1.16) H 11/18/16 04:50 Gen- AAOx3, afebrile Head- normocephalic, atraumatic ENT- left neck with dressing CDI Resp- LCTAB, no rhonchi, rales or wheezes noted CV- S1S2, RRR, no murmur, rub, gallop Skin- warm and dry Extremities- 2+ BLE edema Neuro- grossly intact Psych- without acute mental status change ICD10 Worksheet Patient Problems: Problems Problem Status Onset Pneumonia Acute Sepsis Acute Atrial fibrillation and flutter Acute Cellulitis of right leg Acute Epididymitis Acute Fever and chills Acute Orchitis Acute Pneumonia due to aerobic bacteria Acute UTI (urinary tract infection) Acute
[2016-11-23] MEDS ORDERED: MAGNESIUM SULF 1 GM/DEXTROSE 100 ML IV ONE (14:21)
--- NOTE | 2016-11-23 15:02 | SOAPPROG ---
SOAP Progress Note Assessment/Plan: Assessment: no neck c/o. no tenderness. drain removed. LLQ injection site granuloma with induration/hyperemia. agree with supportive care. if evolves into an abscess, can be drained at that time. otherwise, warm packs/supportive care measures. Plan: 11/19/16 18:13 11/20/16 18:52 11/20/16 18:54 11/21/16 10:40 11/23/16 15:00 Objective: Vital Signs Temp Pulse Resp BP Pulse Ox 36.6 C 61 16 122/67 H 92 11/23/16 12:00 11/23/16 12:00 11/23/16 12:00 11/23/16 12:00 11/23/16 12:00 Microbiology 11/22/16 Unknown Gram Stain - Final Buttock - Aspirate 11/18/16 05:02 Blood Culture - Final Blood Staphylococcus Aureus 11/20/16 10:00 Blood Panel (PCR) - Final Blood S.aureus Methicillin Suscept. 11/18/16 04:50 Blood Culture - Final Blood Staphylococcus Aureus Laboratory Results 11/23/16 04:30 11/23/16 04:30 11/22/16 11/23/16 11/24/16 05:59 05:59 05:59 Intake Total 800 1450 400 Output Total 500 2100 1300 Balance 300 -650 -900 PT 20.9 SEC (12.0-15.0) H 11/18/16 04:50 INR 1.79 (0.83-1.16) H 11/18/16 04:50 ICD10 Worksheet Patient Problems: Problems Problem Status Onset Pneumonia Acute Sepsis Acute Atrial fibrillation and flutter Acute Cellulitis of right leg Acute Epididymitis Acute Fever and chills Acute Orchitis Acute Pneumonia due to aerobic bacteria Acute UTI (urinary tract infection) Acute
[2016-11-23 19:55] LABS: POTASSIUM 4.2 mEq/L (3.5-5.2)
[2016-11-23] MEDS: NIACIN ER 1000 MG TAB.ER PO SCH (20:57)
[2016-11-23] MEDS: traMADol 50 MG TAB PO PRN (20:57)
[2016-11-24] MEDS: ceFAZolin 2 GM/DEXTROSE 100 ML IV SCH ×3 (05:15→22:48)
[2016-11-24] MEDS: NS 1,000 ML IV SCH (05:15)
[2016-11-24 06:15] LABS: MAGNESIUM 1.7 mg/dL (1.6-2.3); POTASSIUM 4.8 mEq/L (3.5-5.2)
[2016-11-24] MEDS ORDERED: MAGNESIUM SULF 1 GM/DEXTROSE 100 ML IV ONE (08:16)
[2016-11-24] MEDS: OMEGA-3 FATTY ACIDS 1,000 MG CAP PO SCH ×2 (09:01→19:58)
[2016-11-24] MEDS: POTASSIUM CL 20 MEQ TAB PO SCH ×2 (09:01→20:01)
[2016-11-24] MEDS: PRESERVISION AREDS2 FORMULA EYE VIT 1 EACH PO SCH ×2 (09:01→19:59)
[2016-11-24] MEDS: RIVAROXABAN 15 MG TAB PO SCH (09:01)
[2016-11-24] MEDS: PIOGLITAZONE HCL 15 MG TAB PO SCH (09:01)
[2016-11-24] MEDS: LISINOPRIL 5 MG TAB PO SCH (09:01)
[2016-11-24] MEDS: CHOLECALCIFEROL VIT D3 1,000 UNITS TAB PO SCH (09:02)
[2016-11-24] MEDS: METOPROLOL TARTRATE 50 MG TAB PO SCH ×2 (09:02→19:59)
[2016-11-24] MEDS: INSULIN LISPRO 100 UNIT/ML SC SCH ×3 (09:02→18:18)
[2016-11-24] MEDS: ASPIRIN 81 MG CHEWABLE TAB PO SCH (09:02)
[2016-11-24] MEDS: NON-FORMULARY NEW DRUG (Insulin Detemir [Levemir] 20 UNIT) SQ SCH (09:03)
[2016-11-24] MEDS: SENNOSIDES/DOCUSATE SODIUM TAB PO SCH ×2 (09:12→23:47)
[2016-11-24] MEDS: NYSTATIN POWDER 15 GM BTL TP SCH ×3 (09:13→22:48)
--- NOTE | 2016-11-24 11:49 | SOAPPROG ---
SOAP Progress Note Assessment/Plan: Assessment: no c/o at any site. afebrile. comfortable. neck clean, wound closing appropriately. abd injection site granuloma without further hyperemia. continued local wound care measures (shower, soap, water) to left neck. will sign off for now. call with questions or concerns. discussed with dr. lemus at bedside. Plan: 11/19/16 18:13 11/20/16 18:52 11/20/16 18:54 11/21/16 10:40 11/23/16 15:00 11/24/16 11:47 Objective: Vital Signs Temp Pulse Resp BP Pulse Ox 36.9 C 72 18 152/74 H 90 L 11/24/16 08:00 11/24/16 09:02 11/24/16 08:00 11/24/16 09:02 11/24/16 08:00 Microbiology 11/22/16 Unknown Gram Stain - Final Buttock - Aspirate 11/18/16 05:02 Blood Culture - Final Blood Staphylococcus Aureus 11/20/16 10:00 Blood Panel (PCR) - Final Blood S.aureus Methicillin Suscept. 11/18/16 04:50 Blood Culture - Final Blood Staphylococcus Aureus Laboratory Results 11/23/16 04:30 11/24/16 05:20 11/23/16 11/24/16 11/25/16 05:59 05:59 05:59 Intake Total 1450 1388 350 Output Total 2100 2550 800 Balance -650 -1162 -450 PT 20.9 SEC (12.0-15.0) H 11/18/16 04:50 INR 1.79 (0.83-1.16) H 11/18/16 04:50 ICD10 Worksheet Patient Problems: Problems Problem Status Onset Pneumonia Acute Sepsis Acute Atrial fibrillation and flutter Acute Cellulitis of right leg Acute Epididymitis Acute Fever and chills Acute Orchitis Acute Pneumonia due to aerobic bacteria Acute UTI (urinary tract infection) Acute
--- NOTE | 2016-11-24 14:02 | PCMIDPN ---
Assessment/Plan: Assessment/Plan: * MSSA bacteremia with concomitant left-sided neck abscess and right gluteal abscess: Clinically improved with blood cultures from 11/22/2016 showing no growth. Gluteal abscess showing growth of MSSA. Continue cefazolin. Anticipate 4 weeks of antibiotics post blood culture clearance. 11/24/16 13:59 Subjective: Feels significantly improved. Able to walk again with mild pain over site of right lateral hip where aspiration performed. Objective: Vital Signs Temp Pulse Resp BP Pulse Ox 36.8 C 57 L 15 127/66 H 92 11/24/16 12:00 11/24/16 12:00 11/24/16 12:00 11/24/16 12:00 11/24/16 12:00 Microbiology 11/22/16 Unknown Gram Stain - Final Buttock - Aspirate 11/18/16 05:02 Blood Culture - Final Blood Staphylococcus Aureus Laboratory Results 11/23/16 04:30 11/24/16 05:20 11/23/16 11/24/16 11/25/16 05:59 05:59 05:59 Intake Total 1450 1388 350 Output Total 2100 2550 800 Balance -650 -1162 -450 C-Reactive Protein 72.9 mg/L (<10.0) H 11/21/16 11:01 Cefazolin # 8 Blood cultures 11/22/2016 no growth Gluteal cultures MSSA - Physical Exam General Appearance: alert, no apparent distress EENT: No scleral icterus, No conjunctival petechiae Cardiac/Chest: regular rate, rhythm Extremities: inflammation (Mild tenderness over right lateral hip; no pain with range of motion of hip) Abdomen: non-tender, No distended Skin: No embolic lesions ICD10 Worksheet Patient Problems: Problems Problem Status Onset Pneumonia Acute Sepsis Acute Atrial fibrillation and flutter Acute Cellulitis of right leg Acute Epididymitis Acute Fever and chills Acute Orchitis Acute Pneumonia due to aerobic bacteria Acute UTI (urinary tract infection) Acute
--- NOTE | 2016-11-24 14:50 | SOAPPROG ---
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 Mild hyponatremia, hypertension. Continuing to follow blood cultures and treat bacteremia. 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 -Hypertension- on home dose of metop, started on lisinopril yesterday, will continue to monitor BP and adjust as needed -Hyponatremia- improved, will continue to follow -DM2- lantus + SSI -Mild elevation of LFTs- follow Will recheck IGG levels as they were borderline and might be contributing to persistent bacteremia. 11/23/16 10:44 11/24/16 14:49 Subjective: Feeling a bit better. Still very tired. NO pain other in his glute when walking. Objective: Vital Signs Temp Pulse Resp BP Pulse Ox 98.2 F 57 L 15 127/66 H 92 11/24/16 12:00 11/24/16 12:00 11/24/16 12:00 11/24/16 12:00 11/24/16 12:00 Microbiology 11/22/16 Unknown Gram Stain - Final Buttock - Aspirate 11/18/16 05:02 Blood Culture - Final Blood Staphylococcus Aureus Laboratory Results 11/23/16 04:30 11/24/16 05:20 11/23/16 11/24/16 11/25/16 05:59 05:59 05:59 Intake Total 1450 1388 350 Output Total 2100 2550 800 Balance -650 -1162 -450 PT 20.9 SEC (12.0-15.0) H 11/18/16 04:50 INR 1.79 (0.83-1.16) H 11/18/16 04:50 Lungs clear. COR RRR, no significant murmur. VS stable. Most recent blood culture is not growing at 48 hours. THis is the best we have done with blod cultures yet. ICD10 Worksheet Patient Problems: Problems Problem Status Onset Pneumonia Acute Sepsis Acute Atrial fibrillation and flutter Acute Cellulitis of right leg Acute Epididymitis Acute Fever and chills Acute Orchitis Acute Pneumonia due to aerobic bacteria Acute UTI (urinary tract infection) Acute
[2016-11-24 19:25] LABS: POTASSIUM 4.5 mEq/L (3.5-5.2)
[2016-11-24] MEDS: traMADol 50 MG TAB PO PRN (19:58)
[2016-11-24] MEDS: NIACIN ER 1000 MG TAB.ER PO SCH (19:59)
[2016-11-25] MEDS: NS 1,000 ML IV SCH (04:37)
[2016-11-25] MEDS: ceFAZolin 2 GM/DEXTROSE 100 ML IV SCH ×3 (05:14→22:15)
[2016-11-25 05:36] LABS: % IMMATURE GRANULYOCYTES 1.8 % (0.0-1.1); ABSOLUTE IMMATURE GRANULOCYTES 0.26 10^3/uL (0.00-0.10); ADD DIFF? NO; ADD MORPH? NO; ADD SCAN? NO; ATYPICAL LYMPHOCYTE FLAG 10 (0-99); FRAGMENT RBC FLAG 0 (0-99); HEMATOCRIT 33.3 % (40.0-51.0); HEMOGLOBIN 11.4 g/dL (13.7-17.5); LEFT SHIFT FLG 10 (0-99); LIPEMIA HEMOLYSIS FLAG 90 (0-99); MEAN CELL HEMOGLOBIN 29.8 pg (27.9-34.1); MEAN CELL HEMOGLOBIN CONCENTR. 34.2 g/dL (32.4-36.7); MEAN CELL VOLUME 86.9 fL (81.5-99.8); MEAN PLATELET VOLUME 10.1 fL (8.7-11.7); PLATELET CLUMPS FLAG 0 (0-99); PLATELET COUNT 342 10^3/uL (150-400); RED BLOOD CELL COUNT 3.83 10^6/uL (4.40-6.38); RED CELL DISTRIBUTION WIDTH 15.9 % (11.5-15.2)
[2016-11-25 05:52] LABS: ALANINE AMINOTRANSFERASE 41 IU/L (21-72); ALBUMIN 2.6 g/dL (3.5-5.0); ALKALINE PHOSPHATASE 257 IU/L (38-126); ANION GAP 9 mEq/L (8-16); ASPARTATE AMINOTRANSFERASE 39 IU/L (17-59); BILIRUBIN,TOTAL 1.2 mg/dL (0.1-1.4); C-REACTIVE PROTEIN 75.6 mg/L (<10.0); CALCIUM 8.8 mg/dL (8.5-10.4); CARBON DIOXIDE 24 mEq/l (22-31); CHLORIDE 99 mEq/L (97-110); CREATININE 0.5 mg/dL (0.7-1.3); GLOMERULAR FILTRATION RATE > 60; GLUCOSE 91 mg/dL (70-100); MAGNESIUM 1.7 mg/dL (1.6-2.3); POTASSIUM 4.7 mEq/L (3.5-5.2); SODIUM 132 mEq/L (134-144); TOTAL PROTEIN 5.9 g/dL (6.3-8.2)
[2016-11-25 06:01] LABS: SEDIMENTATION RATE 78 MM/HR (0-20)
[2016-11-25] MEDS: PRESERVISION AREDS2 FORMULA EYE VIT 1 EACH PO SCH ×2 (09:22→20:36)
[2016-11-25] MEDS: RIVAROXABAN 15 MG TAB PO SCH (09:22)
[2016-11-25] MEDS: PIOGLITAZONE HCL 15 MG TAB PO SCH (09:22)
[2016-11-25] MEDS: METOPROLOL TARTRATE 50 MG TAB PO SCH ×2 (09:23→20:37)
[2016-11-25] MEDS: LISINOPRIL 5 MG TAB PO SCH (09:23)
[2016-11-25] MEDS: INSULIN LISPRO 100 UNIT/ML SC SCH ×3 (09:24→18:34)
[2016-11-25] MEDS: ASPIRIN 81 MG CHEWABLE TAB PO SCH (09:24)
[2016-11-25] MEDS: CHOLECALCIFEROL VIT D3 1,000 UNITS TAB PO SCH (09:24)
[2016-11-25] MEDS: NYSTATIN POWDER 15 GM BTL TP SCH ×3 (09:24→20:33)
[2016-11-25] MEDS: POTASSIUM CL 20 MEQ TAB PO SCH ×2 (09:25→20:36)
[2016-11-25] MEDS: OMEGA-3 FATTY ACIDS 1,000 MG CAP PO SCH ×2 (09:25→20:36)
[2016-11-25] MEDS: SENNOSIDES/DOCUSATE SODIUM TAB PO SCH ×2 (09:25→20:37)
[2016-11-25] MEDS: NON-FORMULARY NEW DRUG (Insulin Detemir [Levemir] 20 UNIT) SQ SCH (10:36)
--- NOTE | 2016-11-25 14:35 | ASMTCMCOM ---
CM Note CM Note Notes: Faxed last two days of prog notes to [facility]. Still no clear DC date. C/M to follow. Date Signed: 11/25/2016 02:35 PM Electronically Signed By:Dayan Long
--- NOTE | 2016-11-25 16:01 | PCMIDPN ---
Assessment/Plan: Assessment/Plan: * MSSA bacteremia with concomitant left-sided neck abscess and right gluteal abscess: Continued clinical improvement with no further neck or gluteal pain. Blood cultures from 11/22/2016 show no growth. Plan PICC line in a.m.. Risks and benefits of PICC line discussed with patient. * Abdominal subcutaneous nodule: Likely injection site granuloma given adjacent ecchymosis. Do not think consistent with metastatic foci of infection. 11/25/16 15:58 Subjective: Patient feels significantly improved. No complaints of hip pain. Able to ambulate without pain. No anterior neck pain. Objective: Vital Signs Temp Pulse Resp BP Pulse Ox 36.4 C 65 18 148/77 H 91 L 11/25/16 12:00 11/25/16 12:00 11/25/16 12:00 11/25/16 12:00 11/25/16 12:00 Microbiology 11/22/16 Unknown Gram Stain - Final Buttock - Aspirate Laboratory Results 11/25/16 05:10 11/25/16 05:10 11/24/16 11/25/16 11/26/16 05:59 05:59 05:59 Intake Total 1388 1824 Output Total 2550 3101 Balance -1162 -1277 ESR 78 MM/HR (0-20) H 11/25/16 05:10 C-Reactive Protein 75.6 mg/L (<10.0) H 11/25/16 05:10 Cefazolin # 9 Blood cultures 11/22/2016 no growth Laboratory Tests 11/25/16 05:10 Total Bilirubin 1.2 AST 39 ALT 41 Alkaline Phosphatase 257 H C-Reactive Protein 75.6 H - Physical Exam General Appearance: alert, no apparent distress EENT: No thrush, No conjunctival petechiae Cardiac/Chest: regular rate, rhythm, No systolic murmur Extremities: other (Right lateral hip without erythema or tenderness) Abdomen: non-tender, other (Approximately 1 cm subcutaneous firm nodule with overlying ecchymoses in left lower quadrant of abdomen), No distended Skin: No embolic lesions ICD10 Worksheet Patient Problems: Problems Problem Status Onset Pneumonia Acute Sepsis Acute Atrial fibrillation and flutter Acute Cellulitis of right leg Acute Epididymitis Acute Fever and chills Acute Orchitis Acute Pneumonia due to aerobic bacteria Acute UTI (urinary tract infection) Acute
[2016-11-25] MEDS ORDERED: MAGNESIUM SULF 1 GM/DEXTROSE 100 ML IV ONE (16:26)
[2016-11-25 18:01] LABS: POTASSIUM 4.7 mEq/L (3.5-5.2)
[2016-11-25] MEDS: NIACIN ER 1000 MG TAB.ER PO SCH (20:36)
[2016-11-25] MEDS: ACETAMINOPHEN 325 MG TAB PO PRN (20:36)
[2016-11-25] MEDS: traMADol 50 MG TAB PO PRN (20:38)
--- NOTE | 2016-11-25 23:26 | SOAPPROG ---
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 Mild hyponatremia, hypertension. Continuing to follow blood cultures and treat bacteremia. 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 -Hypertension- on home dose of metop, started on lisinopril yesterday, will continue to monitor BP and adjust as needed -Hyponatremia- improved, will continue to follow -DM2- lantus + SSI -Mild elevation of LFTs- follow Will recheck IGG levels as they were borderline and might be contributing to persistent bacteremia. Will recheck blood culture today. consider placement of PICC and transfer to [facility] rehab at [facility] on Saturday if stable. 11/23/16 10:44 11/24/16 14:49 11/25/16 23:24 Subjective: Feeling some better. Still gets tired easily. Objective: Vital Signs Temp Pulse Resp BP Pulse Ox 98.8 F 73 18 154/68 H 91 L 11/25/16 19:55 11/25/16 20:37 11/25/16 19:55 11/25/16 20:37 11/25/16 19:55 Microbiology 11/22/16 Unknown Gram Stain - Final Buttock - Aspirate Laboratory Results 11/25/16 05:10 11/25/16 17:46 11/24/16 11/25/16 11/26/16 05:59 05:59 05:59 Intake Total 1388 1824 840 Output Total 2550 3101 700 Balance -1162 -1277 140 PT 20.9 SEC (12.0-15.0) H 11/18/16 04:50 INR 1.79 (0.83-1.16) H 11/18/16 04:50 Lungs clear. COR RRR, no sig murmur. Abd wall with some nodularity from injections. ICD10 Worksheet Patient Problems: Problems Problem Status Onset Pneumonia Acute Sepsis Acute Atrial fibrillation and flutter Acute Cellulitis of right leg Acute Epididymitis Acute Fever and chills Acute Orchitis Acute Pneumonia due to aerobic bacteria Acute UTI (urinary tract infection) Acute
[2016-11-26 04:24] LABS: MAGNESIUM 1.8 mg/dL (1.6-2.3); POTASSIUM 5.1 mEq/L (3.5-5.2)
[2016-11-26] MEDS: ceFAZolin 2 GM/DEXTROSE 100 ML IV SCH ×3 (05:59→20:49)
[2016-11-26] MEDS ORDERED: LISINOPRIL 5 MG TAB PO SCH (08:11)
[2016-11-26] MEDS: INSULIN LISPRO 100 UNIT/ML SC SCH ×3 (09:16→18:18)
[2016-11-26] MEDS: ASPIRIN 81 MG CHEWABLE TAB PO SCH (09:17)
[2016-11-26] MEDS: PIOGLITAZONE HCL 15 MG TAB PO SCH (09:17)
[2016-11-26] MEDS: RIVAROXABAN 15 MG TAB PO SCH (09:17)
[2016-11-26] MEDS: CHOLECALCIFEROL VIT D3 1,000 UNITS TAB PO SCH (09:17)
[2016-11-26] MEDS: OMEGA-3 FATTY ACIDS 1,000 MG CAP PO SCH ×2 (09:17→20:50)
[2016-11-26] MEDS: POTASSIUM CL 20 MEQ TAB PO SCH ×2 (09:18→20:50)
[2016-11-26] MEDS ORDERED: MAGNESIUM SULF 1 GM/DEXTROSE 100 ML IV ONE (09:20)
[2016-11-26] MEDS: LISINOPRIL 10 MG TAB PO SCH (09:22)
[2016-11-26] MEDS: METOPROLOL TARTRATE 50 MG TAB PO SCH ×2 (09:22→20:50)
[2016-11-26] MEDS: NON-FORMULARY NEW DRUG (Insulin Detemir [Levemir] 20 UNIT) SQ SCH (09:23)
[2016-11-26] MEDS: SENNOSIDES/DOCUSATE SODIUM TAB PO SCH ×2 (09:40→20:51)
[2016-11-26] MEDS: NYSTATIN POWDER 15 GM BTL TP SCH ×3 (09:40→20:54)
[2016-11-26] MEDS: PRESERVISION AREDS2 FORMULA EYE VIT 1 EACH PO SCH ×2 (09:41→20:50)
[2016-11-26] MEDS ORDERED: ALTEPLASE 2 MG VIAL IVP PRN (11:56)
--- NOTE | 2016-11-26 12:04 | SOAPPROG ---
SOAP Progress Note Assessment/Plan: Assessment: 86 yo male w/ MSSA bacteremia w/ met to L neck and R gluteus s/p I&D neck, drainage glut. Doing better and most recent bcx are remaining neg. -will place order for PICC line which will hopefully be placed today, may be tomorrow 2/ holiday, cont on cefazolin per ID- appreciate recs. -htn - increase lisinopril to 10, cont metoprolol -DM - takes regularly scheduled lantus 36 u, w/ addition of SSI short acting - he typically does not take short acting insulin but discussed importance of glucose control to help w/ infection healing. -mild hyponatremia - improved and stable. -dispo - PICC to be placed, hopefully to [facility] for rehab tomorrow, cont to follow bcx's. Plan: 11/26/16 11:59 Subjective: Doing better, talks about wanting to get some strength back, wants to work w/ PT today, wants to get to rehab when able (hoping tomorrow) Objective: Vital Signs Temp Pulse Resp BP Pulse Ox 36.6 C 57 L 16 157/95 H 94 11/26/16 11:56 11/26/16 11:56 11/26/16 11:56 11/26/16 11:56 11/26/16 11:56 Microbiology 11/22/16 Unknown Gram Stain - Final Buttock - Aspirate Laboratory Results 11/25/16 05:10 11/26/16 03:55 11/25/16 11/26/16 11/27/16 05:59 05:59 05:59 Intake Total 1824 1040 Output Total 3101 1900 700 Balance -1277 -860 -700 PT 20.9 SEC (12.0-15.0) H 11/18/16 04:50 INR 1.79 (0.83-1.16) H 11/18/16 04:50 Gen: pleasant male, spouse at bedside, alert, oriented NEck: L neck w/ steristrips, no erythema or s/sx infection s/p I&D Chest: cta b CV: rrr nl s1 s2 Abd: soft nt nd nl bs Ext: 1+ edema ble Psych: alert and oriented, good spirits - Pending Discharge Pending Discharge Within 48 Hours: Yes Pending Discharge Date: 11/28/16 Pending Discharge Time: 11:00 ICD10 Worksheet Patient Problems: Problems Problem Status Onset Atrial fibrillation and flutter Acute Orchitis Acute UTI (urinary tract infection) Acute Epididymitis Acute Pneumonia due to aerobic bacteria Acute Pneumonia Acute Cellulitis of right leg Acute Fever and chills Acute Sepsis Acute
--- NOTE | 2016-11-26 14:21 | PCMIDPN ---
Assessment/Plan: Assessment/Plan: * MSSA bacteremia with concomitant left-sided neck abscess and right gluteal abscess: Marked improvement with resolution of right hip pain and neck pain. Plan 4 weeks of antibiotic therapy post clearance of blood cultures. Plan weekly CBC and CMP on antibiotic therapy. Will arrange for follow-up in our office post hospital discharge. Anticipate discharge to long term facility tomorrow. * Abdominal subcutaneous nodule: Likely injection site granuloma given adjacent ecchymosis. Do not think consistent with metastatic foci of infection. 11/26/16 14:19 Subjective: Continues to feel improved. No right hip or neck pain. Objective: Vital Signs Temp Pulse Resp BP Pulse Ox 36.6 C 57 L 16 157/95 H 94 11/26/16 11:56 11/26/16 11:56 11/26/16 11:56 11/26/16 11:56 11/26/16 11:56 Microbiology 11/22/16 Unknown Gram Stain - Final Buttock - Aspirate Laboratory Results 11/25/16 05:10 11/26/16 03:55 11/25/16 11/26/16 11/27/16 05:59 05:59 05:59 Intake Total 1824 1040 Output Total 3101 1900 700 Balance -1277 -860 -700 ESR 78 MM/HR (0-20) H 11/25/16 05:10 C-Reactive Protein 75.6 mg/L (<10.0) H 11/25/16 05:10 Cefazolin # 10 Blood cultures 11/22/2016 no growth - Physical Exam General Appearance: alert, no apparent distress EENT: No thrush, No conjunctival petechiae Neck: other (Left anterior neck without induration or tenderness; minimal erythema which is consistent with healing) Cardiac/Chest: regular rate, rhythm Extremities: other (Right hip without tenderness, erythema or palpable fluctuance) Abdomen: non-tender, No distended Skin: No embolic lesions ICD10 Worksheet Patient Problems: Problems Problem Status Onset Pneumonia Acute Sepsis Acute Atrial fibrillation and flutter Acute Cellulitis of right leg Acute Epididymitis Acute Fever and chills Acute Orchitis Acute Pneumonia due to aerobic bacteria Acute UTI (urinary tract infection) Acute
--- NOTE | 2016-11-26 14:22 | PDIAF ---
- Diagnosis Diagnosis: MSSA bacteremia, neck abscess, and right gluteal abscess Code Status: Do Not Resuscitate - Medication Management Discharge Medications: Medications to Continue on Transfer Allopurinol [Allopurinol 300 MG (RX)] 300 mg PO DAILY 11/01/16 [Last Taken Unknown] Aspirin [Aspirin 81mg (*)] 81 mg PO DAILY 11/01/16 [Last Taken Unknown] C/E/Zn/Cu/OM3/DHA/EPA/LUT/ZEAX [Preservision Areds 2 Softgel] 1 each PO BID 01/08 [Last Taken Unknown] Cholecalciferol Vit D3 [Vitamin D3 (*)] 2,000 units PO DAILY 11/01/16 [Last Taken Unknown] Herbals/Supplements -Info Only 1 ea PO DAILY 11/01/16 [Last Taken Unknown] Insulin Detemir [Levemir] 36 unit SQ DAILY 11/01/16 [Last Taken Unknown] Metoprolol Tartrate [Lopressor 50 mg (*)] 50 mg PO DAILY 11/01/16 [Last Taken 18:00] Metoprolol Tartrate [Lopressor 50 mg (*)] 100 mg PO HS 11/01/16 [Last Taken 18:00] Niacin ER [Niaspan 1000 mg (*)] 1,000 mg PO HS 11/01/16 [Last Taken Unknown] Nitrofurantoin Macrocrystal [Nitrofurantoin] 100 mg PO DAILY 11/01/16 [Last Taken Unknown] Treadwell-3 Fatty Acids/Fish Oil [Treadwell 3 1,000 mg Softgel] 2 each PO BID 11/01/16 [ Last Taken Unknown] Pioglitazone HCl [Actos 15mg (*)] 15 mg PO DAILY 11/01/16 [Last Taken Unknown] Rivaroxaban [Xarelto 15mg (*)] 15 mg PO DAILY 11/01/16 [Last Taken Unknown] metFORMIN HCL [Metformin HCl] 500 mg PO DAILY 11/01/16 [Last Taken Unknown] Assisted Antibiotics: Ancef 2 g IV q.8 hours Assisted Antibiotic Stop Date: 12/20/16 Discharge Medications: Refer to the Discharge Home Medication list for PRN reason. PICC Care - Routine: Yes - Labs/Radiology CBC Date: 11/29/16 CMP Date: 11/29/16 Call or Fax Lab and Imaging Results to: Dr. Azar [phone] - Follow Up Care Current Providers and Referrals: Gordon Ramos MD [Primary Care Provider] - As per Instructions
[2016-11-26 18:35] LABS: POTASSIUM 4.9 mEq/L (3.5-5.2)
[2016-11-26] MEDS: traMADol 50 MG TAB PO PRN (20:50)
[2016-11-26] MEDS: NIACIN ER 1000 MG TAB.ER PO SCH (20:50)
[2016-11-27] MEDS: ceFAZolin 2 GM/DEXTROSE 100 ML IV SCH ×3 (04:51→13:55)
[2016-11-27 05:36] LABS: MAGNESIUM 1.8 mg/dL (1.6-2.3); POTASSIUM 4.7 mEq/L (3.5-5.2)
[2016-11-27 07:50] VITALS: O2SAT 94
[2016-11-27] MEDS: METOPROLOL TARTRATE 50 MG TAB PO SCH (08:44)
[2016-11-27] MEDS: RIVAROXABAN 15 MG TAB PO SCH (08:44)
[2016-11-27] MEDS: PIOGLITAZONE HCL 15 MG TAB PO SCH (08:45)
[2016-11-27] MEDS: ASPIRIN 81 MG CHEWABLE TAB PO SCH (08:45)
[2016-11-27] MEDS: LISINOPRIL 10 MG TAB PO SCH (08:45)
[2016-11-27] MEDS: PRESERVISION AREDS2 FORMULA EYE VIT 1 EACH PO SCH (08:46)
[2016-11-27] MEDS: OMEGA-3 FATTY ACIDS 1,000 MG CAP PO SCH (08:46)
[2016-11-27] MEDS: CHOLECALCIFEROL VIT D3 1,000 UNITS TAB PO SCH (08:46)
[2016-11-27] MEDS: SENNOSIDES/DOCUSATE SODIUM TAB PO SCH ×2 (08:46→08:58)
[2016-11-27] MEDS: POTASSIUM CL 20 MEQ TAB PO SCH (08:46)
[2016-11-27] MEDS: NON-FORMULARY NEW DRUG (Insulin Detemir [Levemir] 20 UNIT) SQ SCH (08:47)
[2016-11-27] MEDS: INSULIN LISPRO 100 UNIT/ML SC SCH ×2 (08:48→13:00)
[2016-11-27] MEDS: NYSTATIN POWDER 15 GM BTL TP SCH (08:53)
--- NOTE | 2016-11-27 08:58 | SOAPPROG ---
SOAP Progress Note Assessment/Plan: Assessment: Plan: 11/17/16 10:00 sepsis with MSSA likely from left neck fluid accumulation, consult with surgery , continue antibiotics DM--d/c D5, SSI, lantus rapid a fib--increase metoprolol. h/o same with infection contrast exposure--hold metformin patient pulled out varela catheter bulb last night. Passing urine, but incontinent--follow 11/18/16 15:28 MSSA abscess left neck region--WBC improving Will follow progress, appreciate surgical and ID and Investigation Manager involvement. Continue IV Atbx follow progress DM glucose reasonable, resume metformin tomorrow low Na+ and low K+ --replacement protocol ordered rapid a fib--asymptomatic, continue with increase metoprolol dosing anticipate transfer to med surg as bed need arises, he is stable 11/19/16 08:48 MSSA blood culture + likely from left neck abscess. s/p I&D. WBC improving. BC's + from yesterday Appreciate ID and surgery inputs DM stable low k+ on replacement protocol brisk UOP will hold extra fluids given excellent po consumption rapid afib back to sinus anticoag--resume xarelto, stop heparin 11/21/16 08:52 persistently + blood cultures, will check CXR and Right hip films, repeat CBC today. Appreciate ID input sepsis--stable now k+ low--on replacement DM stable BP elevated, add lisinopril which should help retain some potassium as well a fib--rate controlled now anticoag--xarelto neck abscess--drained, diane in place. May need repeat neck CT, will await ID and surgical input 11/22/16 08:34 + blood cultures, MRI with fluid collection about right hip IR consult for sampling today, Xarelto held. Appreciate ID guidance HTN--first dose of lisinopril today hypokalemia--improved hyponatremia--improved DM2--continue with lantus + SSI bacteremia--prior sepsis, stable mild elevation of LFT's follow 11/27/16 08:58 blood cultures without growth at 36 hours, plan for PICC today with 4 weeks IV abx, discharge to SNF ([facility]) Htn- lisinopril and metop, f/u outpt hypokalemia- resolved DM2- continue regimen of lantus and SSI anticoag- Xarelto Chronic afib- rate controlled, xarelto Subjective: Resting in bed today, eager to discharge and start rehab. Still feeling weak, but overall improving. Appetite is still down. Objective: Vital Signs Temp Pulse Resp BP Pulse Ox 36.9 C 74 17 168/80 H 94 11/27/16 07:48 11/27/16 08:50 11/27/16 08:50 11/27/16 08:50 11/27/16 08:50 Microbiology 11/20/16 10:00 Blood Culture - Final Blood Staphylococcus Aureus 11/20/16 10:00 Blood Culture - Final Blood Staphylococcus Aureus Blood Panel (PCR) - Final S.aureus Methicillin Suscept. 11/22/16 04:35 Blood Culture - Final Blood 11/22/16 04:25 Blood Culture - Final Blood 11/22/16 Unknown Gram Stain - Final Buttock - Aspirate Laboratory Results 11/25/16 05:10 11/27/16 04:53 11/26/16 11/27/16 11/28/16 05:59 05:59 05:59 Intake Total 1040 1816 Output Total 1900 2550 Balance -860 -734 PT 20.9 SEC (12.0-15.0) H 11/18/16 04:50 INR 1.79 (0.83-1.16) H 11/18/16 04:50 Gen- AAOx3, vitals stable, afebrile Head- normocephalic, atraumatic ENT- PEERL, EOMI, healing surgical incision to left neck without e/o complication Resp- LCTAB, no rhonchi, rales, wheezes CV- irregular rhythm consistent with chronic afib, rate controlled, no murmur, rub, gallop Abd- soft, nontender, nondistended Extremities- 2+ edema to bilat ankles Neuro- grossly intact Psych- no acute mental status changes ICD10 Worksheet Patient Problems: Problems Problem Status Onset Pneumonia Acute Sepsis Acute Atrial fibrillation and flutter Acute Cellulitis of right leg Acute Epididymitis Acute Fever and chills Acute Orchitis Acute Pneumonia due to aerobic bacteria Acute UTI (urinary tract infection) Acute
--- NOTE | 2016-11-27 10:27 | GDS ---
[f rep st] DISCHARGE SUMMARY DATE OF TRANSFER: To [facility] facility, November 27, 2016. REASON FOR ADMISSION: Sepsis due to bacteremia from Staphylococcus aureus collections in left neck and right gluteal region. HOSPITAL COURSE: The patient was admitted through the ER to the ICU given septic findings. He responded well to fluid resuscitation and IV management. He was found to be blood culture positive on several occasions to MSSA. Infectious Disease helped guide therapy and he has remained on cefazolin 2 g q.8 hours. He was found to have a left neck abscess as well as a right gluteal region abscess. Both of these were drained. Left neck was drained by Dr. Brian Duran with surgical incision and drainage. Right gluteal abscess was drained by Interventional Radiology. Gram-positive cocci consistent with Staph aureus was obtained from both his neck and his right gluteal region. Clinically he improved. Blood pressure stabilized. His rapid atrial fibrillation normalized to atrial fibrillation with good rate control. His blood pressure was a bit elevated. For this reason, lisinopril was added. He had some electrolyte disturbances. He did have hyponatremia likely secondary to his sepsis, which improved with IV fluid support and improvement in his overall clinical picture. Hypokalemia was replaced as needed. At this point, he is quite improved. He will continue with long-term IV antibiotic therapy for the next 4 weeks and will transition to [facility]. He will have outpatient followup with us in the next 2-4 weeks. /[id number]/MODL MTDD
--- NOTE | 2016-11-27 12:45 | ASMTCMCOM ---
CM Note CM Note Notes: CM Discharge Note: Patient will discharge to [facility] today, all paperwork sent to facility. [facility] transport service to pick up attendant pt at 1515. ELLEN Ariza to call report Date Signed: 11/27/2016 12:45 PM Electronically Signed By:Subha Moya
[2016-11-27] MEDS ORDERED: MAGNESIUM SULF 1 GM/DEXTROSE 100 ML IV ONE (13:53)
[2016-11-27 15:19] VITALS: BP 149/74; PULSE 76; RESP 16; TEMP 97.9
[2016-11-28 16:27] LABS: IMMUNOGLOBULIN G4 12.8 mg/dL
== END 2016-11-27 15:38 | DRG 854 ==
LOC: EDUNIT# → OBSVTOIN 03:45 → F2N 04:35 → F1N 11-20 18:03
PROVIDERS: ADMIT Internal Medicine; ATTEND Internal Medicine
PROC: 0K9 Muscles, Drainage (ICD-10-PCS; 2016-11-17)
PROC: 0K930ZZ Drainage of Left Neck Muscle, Open Approach (ICD-10-PCS; principal; 2016-11-18 08:00)
PROC: 0K9Q3ZZ Drainage of Right Upper Leg Muscle, Percutaneous Approach (ICD-10-PCS; 2016-11-22)
PROC: 02HV33Z Insertion of Infusion Device into Superior Vena Cava, Percutaneous Approach (ICD-10-PCS; 2016-11-27)
DX: A41.01 Sepsis due to Methicillin susceptible Staphylococcus aureus (principal); R65.20 Severe sepsis without septic shock; M60.09 Infective myositis, multiple sites; E87.1 Hypo-osmolality and hyponatremia; E87.6 Hypokalemia; L89.153 Pressure ulcer of sacral region, stage 3; I48.91 Unspecified atrial fibrillation; I48.92 Unspecified atrial flutter; Z79.01 Long term (current) use of anticoagulants; E11.9 Type 2 diabetes mellitus without complications; Z79.4 Long term (current) use of insulin; I71.4 Abdominal aortic aneurysm, without rupture; I10 Essential (primary) hypertension; E78.00 Pure hypercholesterolemia, unspecified; Z85.51 Personal history of malignant neoplasm of bladder; Z85.46 Personal history of malignant neoplasm of prostate; Z85.820 Personal history of malignant melanoma of skin; Z85.828 Personal history of other malignant neoplasm of skin; Z96.641 Presence of right artificial hip joint; Z87.891 Personal history of nicotine dependence
CPT/HCPCS: 82787-90; 92526-GN; 92610-GN; 96365; 97110-GP; 97116-GP; 97163-GP; 97166-GO; 97530-GO; 97530-GP; 97535-GO; A9585; C1751; G8978-GP-CM; G8979-GP-CJ; G8987-GO-CM; G8988-GO-CI; G8989-GO-CJ; G8996-GN-CH; G8996-GN-CI; G8997-GN-CH; G8998-GN-CH; J0456; J0690; J0696; J1815; J2704; J3475; Q9967

== ENCOUNTER 2017-03-18 09:38 | Inpatient (IN) | payer OTHER ==
--- NOTE | 2017-03-18 10:11 | EDPHY ---
H & P Stated Complaint: COUGH, BODY ACHES HPI/ROS: CHIEF COMPLAINT: Shaky and cold HISTORY OF PRESENT ILLNESS: The patient is an 87 y/o male arriving with family complaining of chills and shakiness, onset this morning. This morning, as he was taking his pills, he felt he was shaking and cold. He has an associated cough and vomited twice this morning. He feels similar to when he had pneumonia previously. He denies diarrhea, constipation, urinary complaints, shortness of breath or any other associated symptoms. He had his influenza vaccine this season. REVIEW OF SYSTEMS: A ten point review of systems was performed and is negative with the exception of the items mentioned in the HPI. Past medical history: 1. Pneumonia 2. Sepsis 3. SVT/Atrial fibrillation 4. Known AAA, followed with US 5. Diabetes 6. Bladder CA 7. DJD 8. Melanoma 9. Recurrent UTI Past surgical history: Denies Family history: Non-contributory Social history: Son and grandson at bedside, lives in [place], retired General Appearance: Alert. Vital signs reviewed. Blood pressure 144/64. Temperature 37 degrees. Eyes: Pupils equal and round, no conjunctival injection, no discharge. Anicteric. ENT, Mouth: Mucous membranes are moist, no oropharyngeal erythema or edema. Neck: No lymphadenopathy, supple. Respiratory: Lungs are clear to auscultation; no wheezes, rales, or rhonchi. Cardiovascular: Regular rate and rhythm; no murmur, rub, or gallop. Gastrointestinal: Abdomen is soft and nontender, no masses or organomegaly, bowel sounds normal. Skin: Warm and dry, no rashes on exposed skin, normal color. Back: Nontender to palpation over the thoracolumbar spine. No CVAT. Extremities: Erythema right knee to ankle, warm to touch, no swelling. Neurological: Alert and oriented. Moving all four extremities easily and equally. Psychiatric: Normal affect. - Medical/Surgical History Hx Asthma: No Hx Chronic Respiratory Disease: No Hx Diabetes: Yes Hx Cardiac Disease: Yes Hx Renal Disease: No Hx Cirrhosis: No Hx Alcoholism: No Hx HIV/AIDS: No Hx Splenectomy or Spleen Trauma: No Other PMH: Afib/Aflutter, DM2, high cholesterol,HTN, bladder CA, kidney stones, prostate CA, small aortic aneurysm, R total hip - Social History Smoking Status: Former smoker Constitutional: Initial Vital Signs Temperature (C) 37.0 C 03/18/17 09:56 Heart Rate 88 03/18/17 09:56 Respiratory Rate 18 03/18/17 09:56 Blood Pressure 144/64 H 03/18/17 09:56 O2 Sat (%) 92 03/18/17 09:56 O2 Delivery Mode Room Air Allergies/Adverse Reactions: No Allergies [NKDA] Allergy (Verified 11/16/16 01:04) No Allergies Allergy (Unknown, Uncoded 03/21/17 14:22) Home Medications: Medication Instructions Recorded Aspirin [Aspirin 81mg (*)] 81 mg PO HS 11/01/16 Insulin Detemir [Levemir] 30 unit SQ DAILY 11/01/16 Niacin ER [Niaspan 1000 mg (*)] 1,000 mg PO HS 11/01/16 Pearl-3 Fatty Acids/Fish Oil 2 cap PO BID 11/01/16 [Pear[place] 3 1,000 mg Softgel] Pioglitazone HCl [Actos 15mg (*)] 15 mg PO DAILY 11/01/16 Rivaroxaban [Xarelto 15mg (*)] 15 mg PO HS 11/01/16 Cephalexin [Keflex (*)] 500 mg PO HS 03/18/17 Cholecalciferol (Vitamin D3) 5,000 unit PO BID 03/18/17 [Vitamin D3] Metoprolol Tartrate [Lopressor 100 100 mg PO DAILY 03/18/17 mg (*)] metFORMIN SR [Glucophage XR 500 mg 500 mg PO BID@08,18 03/18/17 (*)] levOFLOXACIN [levAQUIN (*)] 500 mg PO DAILY AT 10AM 3 Days #3 03/21/17 tab Medical Decision Making ED Course/Re-evaluation: Study: X-ray of the chest Indication: Cough Results: X-ray of the chest was obtained. The results of the study are: possible dependant edema or pneumonitis right The study was read by the radiologist, Dr. Solis. I viewed the images myself on the PACS system. The patient was evaluated by Rossy Puentes of Dr. Ramos's office (his PCP). He continues to feel chilled and shaky. He has not had fever. CXR with possible RLL pneumonitis--subtle.The influenza test was negative. WBC count elevated with left shift. Etiology unclear, but this is an elderly patient with multiple medical problems who reportedly becomes ill quite rapidly. He continues to feel poorly, with shaking chills. Admission for continued evaluation recommended. Decision to start antibiotics or not will be left up to admitting team. I have not found clear evidence of infectious source. Pneumonia and/or RLE cellulitis most likely, given physical exam and history. Differential Diagnosis: I considered a ddx that includes but is not limited to influenza, pneumonia, uti , intra-abdominal infection, cellulitis, sepsis. - Data Points Laboratory Results: Laboratory Results 03/18/17 09:45 03/18/17 09:45 Medications Given: Discontinued Medications Aspirin (Aspirin) 81 mg PO HS SHANICE Stop: 09/14/17 20:59 Last Admin: 03/20/17 19:32 Dose: 81 mg Cholecalciferol (Vitamin D) 5,000 units PO BID SHANICE Stop: 09/14/17 20:59 Last Admin: 03/21/17 08:20 Dose: 5,000 units Azithromycin 500 mg/ Dextrose 255 mls @ 255 mls/hr IV ONCE ONE PRN Reason: Protocol Stop: 03/18/17 16:29 Last Admin: 03/18/17 16:47 Dose: 255 mls Ceftriaxone Sodium/Dextrose (Rocephin 1 Gm (Premix)) 50 mls @ 100 mls/hr IV DAILY SHANICE PRN Reason: Protocol Stop: 04/17/17 15:29 Last Admin: 03/19/17 09:45 Dose: 50 mls Sodium Chloride (Ns) 1,000 mls @ 150 mls/hr IV CONT SHANICE Stop: 09/14/17 15:29 Last Admin: 03/18/17 16:20 Dose: 1,000 mls Sodium Chloride (Ns) 1,000 mls @ 250 mls/hr IV CONT SHANICE Stop: 09/15/17 00:29 Last Admin: 03/20/17 01:42 Dose: 1,000 mls Cefazolin Sodium 0.5 gm/ (Sodium Chloride) 50 mls @ 200 mls/hr IV Q8HRS SHANICE PRN Reason: Protocol Stop: 04/18/17 13:59 Last Admin: 03/21/17 06:33 Dose: 50 mls Levofloxacin/Dextrose (Levaquin 750 Mg (Premix)) 150 mls @ 100 mls/hr IV DAILY SHANICE PRN Reason: Protocol Stop: 04/18/17 11:59 Last Admin: 03/19/17 12:42 Dose: 150 mls Levofloxacin (Levaquin) 500 mg PO DAILY AT 10AM [facility] PRN Reason: Protocol Stop: 04/19/17 09:59 Last Admin: 03/21/17 09:27 Dose: 500 mg Metformin HCl (Glucophage Xr) 500 mg PO BID@0800,1800 SHANICE Stop: 09/14/17 17:59 Last Admin: 03/21/17 08:19 Dose: 500 mg Metoprolol Tartrate (Lopressor) 50 mg PO DAILY SHANICE Stop: 09/15/17 08:59 Last Admin: 03/19/17 08:24 Dose: 50 mg Metoprolol Tartrate (Lopressor) 100 mg PO HS SHANICE Stop: 09/14/17 20:59 Last Admin: 03/19/17 20:10 Dose: 100 mg Metoprolol Tartrate (Lopressor) 100 mg PO BID [facility] Stop: 09/16/17 20:59 Last Admin: 03/21/17 08:20 Dose: 100 mg Metoprolol Tartrate (Lopressor) 50 mg PO ONCE ONE Stop: 03/20/17 08:46 Last Admin: 03/20/17 08:47 Dose: 50 mg Miscellaneous Medication (Insulin Detemir [Levemir]) 30 unit SQ DAILY SHANICE Stop: 09/15/17 08:59 Last Admin: 03/21/17 08:23 Dose: 30 units Niacin (Niaspan) 1,000 mg PO HS [facility] Stop: 09/15/17 20:59 Last Admin: 03/20/17 19:30 Dose: 1,000 mg [id number] Ethyl Esters (Lovaza) 2 gm PO BID SHANICE Stop: 09/16/17 08:59 Last Admin: 03/21/17 08:19 Dose: 2 gm Pioglitazone HCl (Actos) 15 mg PO DAILY [facility] Stop: 09/15/17 10:44 Last Admin: 03/21/17 08:21 Dose: 15 mg Rivaroxaban (Xarelto) 15 mg PO HS [facility] Stop: 09/15/17 20:59 Last Admin: 03/20/17 19:32 Dose: 15 mg Departure - Departure Disposition: [facility] Acute Clinical Impression: Cough, Chills, Malaise Condition: Fair Report Scribed for: Carla Roper Report Scribed by: Emma Bingham Date of Report: 03/18/17 Time of Report: 11:24 Physician Review and Approval Statement: 03/18/17 10:11 Portions of this note were transcribed by the medical record coder. I, Dr. Carla Ropre, personally performed the history, physical exam, and medical decision- making; and confirmed the accuracy of the information in the transcribed note.
[2017-03-18 10:25] LABS: PLATELET COUNT 204 10^3/uL (150-400)
--- NOTE | 2017-03-18 14:59 | SOAPPROG ---
SOAP Progress Note Assessment/Plan: Assessment: Plan: 03/18/17 15:06 Chills, not feeling well: Sx not that definitive, but suggest infection with elevated WBC and left shift. BP also fluctuating between normal and mildly hypotensive. CXR not clearly with pneumonia, but he feels like he has felt when he has had pneumonia in past. O2 saturations ok. RLE erythematous but without edema. Query possible cellulitis, though has hx of venous stasis. Will cover with ceftriaxone and azithromycin. Diabetes mellitus: on levemir, metformin, pioglitazone Atrial flutter: currently in sinus rhythm. Continue metoprolol, Xarelto. Will check BNP given CXR findings. CAD: significant atherosclerotic disease, asymptomatic, with stable heart scan in 05/11. Continue Niaspan, aspirin DVT prophylaxis: on Xarelto Dispo: Admit. Expect 2 midnights or more 03/18/17 15:20 03/18/17 15:31 Subjective: 87 yo male with hx of multiple medical problems was feeling well until this morning when he developed sudden onset chills and shaking. Didn't feel febrile. [place] nauseated and vomited twice. Has a non-productive cough, but no SOB. Denies chest pain, abdominal pain, diarrhea, constipation. Here in the ED, he doesn't feel well. His WBC is mildly elevated at 14.92 with a L shift. CMP with elevated alkaline phosphatase. CXR shows a subtle haziness in the mid-lower lungs possibly representing edema or pneumonitis. Objective: Vital Signs Temp Pulse Resp BP Pulse Ox 37.0 C 90 18 138/59 H 92 03/18/17 09:56 03/18/17 13:35 03/18/17 13:35 03/18/17 13:35 03/18/17 13:35 General: lying in bed, resting, but arouses easily, NAD HEENT: PERRL, EOMI Neck: no masses, adenopathy Lungs: clear bilaterally without wheeze, rales Cardiovascular: RRR without murmur Abdomen: +bowel sounds, soft, NT. No hepatosplenomegaly, masses palpable Extremities: no clubbing, cyanosis, edema. RLE with erythema Neurologic: sleepy, no confusion, moving all extremities Psychiatric: normal mood, no agitation ICD10 Worksheet Patient Problems: Problems Problem Status Onset Chills Acute Cough Acute Malaise Acute Atrial fibrillation and flutter Acute Cellulitis of right leg Acute Epididymitis Acute Fever and chills Acute Orchitis Acute Pneumonia Acute Pneumonia due to aerobic bacteria Acute Sepsis Acute UTI (urinary tract infection) Acute
[2017-03-18] MEDS ORDERED: ONDANSETRON DISINTEGRATING 4 MG TAB PO PRN (15:16)
[2017-03-18] MEDS ORDERED: ONDANSETRON 4 MG/2 ML VIAL IVP PRN (15:16)
[2017-03-18] MEDS ORDERED: ACETAMINOPHEN 325 MG TAB PO PRN (15:16)
[2017-03-18] MEDS ORDERED: AZITHROMYCIN IV 500 MG in D5W 250 ML IV ONE (15:30)
[2017-03-18] MEDS ORDERED: NS 1,000 ML IV SCH (15:30)
--- NOTE | 2017-03-18 16:16 | GHP ---
[f rep st] HISTORY AND PHYSICAL DATE OF ADMISSION: 03/18/2017 HISTORY OF PRESENT ILLNESS: The patient is an 87-year-old male with a history of multiple medical problems, who was feeling well until this morning when he developed the sudden onset of chills and shaking. He did not feel febrile. He felt nauseated and vomited twice. He has a nonproductive cough but no shortness of breath. He denies any chest pain, abdominal pain, diarrhea, constipation. In the emergency department, he does not feel well. His white blood cell count is mildly elevated at 14.92 with a left shift. CMP shows an elevated alkaline phosphatase. Chest x-ray shows a subtle haziness in the mid lower lungs, possibly representing edema or pneumonitis. Overall, he just isn' t feeling well and does not feel able to go home and thus the decision is being made to admit him. PAST MEDICAL HISTORY: Adult onset diabetes mellitus, bladder cancer, degenerative joint disease, kidney stones, melanoma removed in 2006 and then again in 2007, prostate cancer, small abdominal aortic aneurysm, testicular hypofunction, hypercalcemia, venous stasis, atrial flutter, chronic prostatitis , stable coronary artery disease. MEDICATIONS: Allopurinol 300 mg daily, Niaspan 1000 mg daily, Levemir 100 units /mL Pen 30 units subcu daily. Xarelto 15 mg daily, metformin 500 mg twice daily p.o., glitazone 15 mg daily, metoprolol tartrate 50 mg 1 tablet in the morning and 2 tablets at night. Aspirin 81 mg daily, Keflex 500 mg daily, vitamin D 5000 international units daily. ALLERGIES: None. PAST SURGICAL HISTORY: Not documented. FAMILY HISTORY: Noncontributory. SOCIAL HISTORY: The patient is and his and son are in the room today. He is a former smoker, but has not smoked in some time. REVIEW OF SYSTEMS: GENERAL: Chills as noted, but no fever, in general not feeling well. HEENT: No sinus pain or pressure. No nasal drainage. RESPIRATORY: Dry cough. No shortness of breath. CARDIOVASCULAR: No chest pain. ABDOMEN: Nausea and vomiting as noted without diarrhea or constipation or abdominal pain. GENITOURINARY: No dysuria, hematuria. NEUROLOGIC: No headache, weakness, or confusion. LABS: White blood cell count 14.92, hemoglobin 16, hematocrit 46.6, neutrophils 92.1%, platelet count 204. Chemistry: Sodium 139, potassium 4.8, chloride 101, bicarb 22, BUN 30, creatinine 0.8, glucose 280, calcium 10.4, bilirubin 0.6, AST 27, ALT 30, alkaline phosphatase 223. Protein 7, albumin 3.9. Nasal influenza swab was negative for both influenza A and B. PHYSICAL EXAM: GENERAL: He is lying in bed, resting with several blankets over him, but arouses easily. No acute distress. HEENT: Pupils are equal, round , reactive to light. Extraocular movements are intact. NECK: No masses or adenopathy. LUNGS: Clear bilaterally without wheezes or rales. CARDIOVASCULAR : Regular rate and rhythm without murmur. ABDOMEN: Soft with normal bowel sounds. Nontender. No hepatosplenomegaly or masses palpable. EXTREMITIES: No clubbing, cyanosis, or edema. Right lower extremity is erythematous. NEUROLOGIC: He is sleepy, but not confused. Moving all extremities PSYCHIATRIC : Normal mood. No agitation. ASSESSMENT: 1. Chills, not feeling well. Symptoms are not that definitive but are suggestive of infection with elevated white blood cell count and left shift. Blood pressure is also fluctuating between normal and mildly hypotensive. Chest x-ray does not clearly show pneumonia, but he feels like he has felt when he has had pneumonia in the past. O2 saturations are normal. Will begin IV antibiotics. 2. Right lower extremity erythematous but without edema. Possible cellulitis. He has a history of venous stasis. Will cover with ceftriaxone and azithromycin. 3. Diabetes mellitus, on Levemir and metformin and p.o. glitazone and will continue. 4. Atrial flutter. He is currently in sinus rhythm. We will continue metoprolol and is on Xarelto. We will check BNP given chest x-ray findings. 5. Coronary artery disease, significant atherosclerotic disease asymptomatic with stable heart scan in April 2016. Will continue niacin and aspirin. 6. Deep vein thrombosis prophylaxis. He is on Xarelto. DISPOSITION: Will admit, expect 2 midnights or more. /[id number]/MODL MTDD
[2017-03-18] MEDS: metFORMIN SR 500 MG TAB PO SCH (17:38)
--- NOTE | 2017-03-18 18:27 | WOCRNPDOC ---
WOCRN Advanced Assessment Note - Skin Integrity Problem, Advanced Assess Coccyx Pressure Injury Dressing Type: Open to Air Integumentary Issue Intervention: Dressing Removed [place] Wound Tissue: Erythema, Non-blanching Wound Bed Constitution: Healed Site Measurement - Head-to-Toe Length X Width X Depth (cm): 2x1x0 Pressure Injury Stage: Stage 3 Pressure Injury Present on Admit: Yes Skin Integrity Problem Comment: Healed stage 3 pressure injury currently presents as intact skin with non blanching erythema. Top epithelial layer appears delicate and may peel off as there is quite a bit of moisture. Will upgrade support surface to P 500 to help manage moisture issue. No briefs on patient please. Minimal layers. Left Buttock Dressing Type: Allevyn Life Exudate Characteristic(s): None Integumentary Issue Intervention: Dressing Removed [place] Wound Tissue: Macerated Wound Bed Constitution: Granulation Tissue, Smooth Tissue, Adhered Slough Site Measurement - Head-to-Toe Length X Width X Depth (cm): 0.5x0.5x0.2 (x2 wounds) Skin Integrity Problem Comment: Patient incontinent of urine. Unless a varela or condom cath is placed dressings will become contaminated too often so will order cream at this point. Piper wound skin very macerated circumferentially. The wounds are of an unknown etiology but are both full thickness. One (the medial wound) has slough present. Will treat with calazime for now and see progress at end of week. No dressing. No briefs. Discussed with Mateo HUGHES.
[2017-03-18] MEDS: ASPIRIN 81 MG CHEWABLE TAB PO SCH (20:44)
[2017-03-18] MEDS: CHOLECALCIFEROL VIT D3 2,000 UNITS TAB/CAP PO SCH (20:44)
[2017-03-18] MEDS: METOPROLOL TARTRATE 100 MG TAB PO SCH (20:45)
[2017-03-18] MEDS ORDERED: NON-FORMULARY NEW DRUG (Cholecalciferol (Vitamin D3) [Vitamin D3] 5,000 UNIT) PO SCH (21:00)
[2017-03-19] MEDS: NS 1,000 ML IV SCH ×2 (01:04→05:03)
[2017-03-19 05:14] LABS: PLATELET COUNT 164 10^3/uL (150-400)
[2017-03-19] MEDS: CHOLECALCIFEROL VIT D3 2,000 UNITS TAB/CAP PO SCH ×2 (08:22→20:13)
[2017-03-19] MEDS: metFORMIN SR 500 MG TAB PO SCH ×2 (08:24→18:43)
[2017-03-19] MEDS: INSULIN DETEMIR 30 UNIT SQ SCH (08:25)
[2017-03-19] MEDS ORDERED: METOPROLOL TARTRATE 100 MG TAB PO SCH (09:00)
[2017-03-19] MEDS ORDERED: METOPROLOL TARTRATE 50 MG TAB PO SCH (09:00)
--- NOTE | 2017-03-19 10:32 | SOAPPROG ---
SOAP Progress Note Assessment/Plan: Assessment: Plan: 03/19/17 10:32 probable mild pna and poss RLE cellulitis. WBC increased, will change atbx today to Levaquin and cephalexin. (Prior MSSA infection) h/i a fib--NSR currently, often times he gets RVR with a fib when ill DM--continue regular insulin schedule and add SSI as needed Subjective: The patient still feels tired. No further n/v. No BM today. States he is eating and drinking ok. No further chills. Minimal cough Objective: Vital Signs Temp Pulse Resp BP Pulse Ox 37.3 C 84 21 H 117/60 96 03/19/17 07:37 03/19/17 08:24 03/19/17 07:37 03/19/17 08:24 03/19/17 07:37 Laboratory Results 03/19/17 04:55 03/19/17 04:55 03/18/17 03/19/17 03/20/17 05:59 05:59 05:59 Intake Total 1250 Balance 1250 Gen: pleasant, somewhat tired, resting with and son present Lungs: mildly decreased BS, sl productive cough Heart: currently NSR Abd + bs, soft NT RLE warm compared to LLE, 1-2+ edema, some erythema about proximal right hip as well ICD10 Worksheet Patient Problems: Problems Problem Status Onset Chills Acute Cough Acute Malaise Acute Atrial fibrillation and flutter Acute Cellulitis of right leg Acute Epididymitis Acute Fever and chills Acute Orchitis Acute Pneumonia Acute Pneumonia due to aerobic bacteria Acute Sepsis Acute UTI (urinary tract infection) Acute
--- NOTE | 2017-03-19 11:21 | ASMTCMCOM ---
CM Note CM Note Notes: Patient admitted for chills/malaise, likely has mild PNA and possible RLE cellulitis. He is on Levaquin and Cephalexin. He lives independently with his and has a son in the area. His discharge needs are TBD, will await therapy evals and medication recommendations. CM will follow. Date Signed: 03/19/2017 11:21 AM Electronically Signed By:Subha Moya RN
[2017-03-19] MEDS: PIOGLITAZONE HCL 15 MG TAB PO SCH (12:43)
[2017-03-19] MEDS: ceFAZolin 0.5 GM in NS 50 ML IV SCH ×2 (15:10→21:36)
[2017-03-19] MEDS: METOPROLOL TARTRATE 100 MG TAB PO SCH (20:10)
[2017-03-19] MEDS: NIACIN ER 1000 MG TAB.ER PO SCH (20:10)
[2017-03-19] MEDS: ASPIRIN 81 MG CHEWABLE TAB PO SCH (20:13)
[2017-03-19] MEDS: RIVAROXABAN 15 MG TAB PO SCH (20:13)
[2017-03-20] MEDS: NS 1,000 ML IV SCH (01:42)
[2017-03-20] MEDS: ceFAZolin 0.5 GM in NS 50 ML IV SCH ×3 (05:25→21:41)
[2017-03-20 06:07] LABS: PLATELET COUNT 153 10^3/uL (150-400)
[2017-03-20] MEDS: INSULIN DETEMIR 30 UNIT SQ SCH (08:31)
[2017-03-20] MEDS: CHOLECALCIFEROL VIT D3 2,000 UNITS TAB/CAP PO SCH ×2 (08:32→19:30)
[2017-03-20] MEDS: PIOGLITAZONE HCL 15 MG TAB PO SCH (08:32)
--- NOTE | 2017-03-20 08:42 | SOAPPROG ---
SOAP Progress Note Assessment/Plan: Assessment:Probable pnuumonia. Increased WBC resolving. No hypoxia. A-Fib- Flutter. Plan: Increase metoprolol to reduce heart rate. Continue anticoagulation. change levaquin to PO. PT OT to assess safety at home. 03/20/17 08:41 Subjective: Doing some better. Still very weak. Not strong enough to go home yet. Objective: Vital Signs Temp Pulse Resp BP Pulse Ox 97.5 F 110 H 16 127/102 H 92 03/20/17 08:00 03/20/17 08:00 03/20/17 08:00 03/20/17 08:00 03/20/17 08:00 Laboratory Results 03/20/17 04:35 03/20/17 04:35 03/19/17 03/20/17 03/21/17 05:59 05:59 05:59 Intake Total 1250 1250 Balance 1250 1250 Lungs with bibasilar rales. COR rapid and irregular rhythm. kNo edema. Labs improved witih wBC nearly normal. ICD10 Worksheet Patient Problems: Problems Problem Status Onset Chills Acute Cough Acute Malaise Acute Atrial fibrillation and flutter Acute Cellulitis of right leg Acute Epididymitis Acute Fever and chills Acute Orchitis Acute Pneumonia Acute Pneumonia due to aerobic bacteria Acute Sepsis Acute UTI (urinary tract infection) Acute
[2017-03-20] MEDS ORDERED: METOPROLOL TARTRATE 50 MG TAB PO ONE (08:45)
[2017-03-20] MEDS: metFORMIN SR 500 MG TAB PO SCH ×2 (08:45→18:04)
[2017-03-20] MEDS ORDERED: METOPROLOL TARTRATE 100 MG TAB PO SCH (09:00)
[2017-03-20] MEDS: OMEGA-3 ETHYL EST-LOVAZA 1 GM CAP PO SCH ×2 (11:37→19:32)
[2017-03-20] MEDS: NIACIN ER 1000 MG TAB.ER PO SCH (19:30)
[2017-03-20] MEDS: METOPROLOL TARTRATE 100 MG TAB PO SCH (19:32)
[2017-03-20] MEDS: ASPIRIN 81 MG CHEWABLE TAB PO SCH (19:32)
[2017-03-20] MEDS: RIVAROXABAN 15 MG TAB PO SCH (19:32)
[2017-03-21 00:08] VITALS: BP 138/73; O2SAT 94
[2017-03-21] MEDS: ceFAZolin 0.5 GM in NS 50 ML IV SCH (06:33)
[2017-03-21] MEDS: OMEGA-3 ETHYL EST-LOVAZA 1 GM CAP PO SCH (08:19)
[2017-03-21] MEDS: metFORMIN SR 500 MG TAB PO SCH (08:19)
[2017-03-21] MEDS: METOPROLOL TARTRATE 100 MG TAB PO SCH (08:20)
[2017-03-21] MEDS: CHOLECALCIFEROL VIT D3 2,000 UNITS TAB/CAP PO SCH (08:20)
[2017-03-21] MEDS: PIOGLITAZONE HCL 15 MG TAB PO SCH (08:21)
[2017-03-21] MEDS: INSULIN DETEMIR 30 UNIT SQ SCH (08:23)
[2017-03-21 08:25] VITALS: PULSE 127
[2017-03-21 08:44] VITALS: RESP 18; TEMP 97.4
--- NOTE | 2017-03-21 11:08 | PDIAF ---
- Diagnosis Code Status: Do Not Resuscitate - Medication Management Discharge Medications: Medications to Continue on Transfer Aspirin [Aspirin 81mg (*)] 81 mg PO HS 11/01/16 [Last Taken 03/17/17 20:00] Insulin Detemir [Levemir] 30 unit SQ DAILY 11/01/16 [Last Taken 03/18/17 07:00] Niacin ER [Niaspan 1000 mg (*)] 1,000 mg PO HS 11/01/16 [Last Taken 03/17/17 20: 00] [place]-3 Fatty Acids/Fish Oil [[place] 3 1,000 mg Softgel] 2 cap PO BID 11/01/16 [ Last Taken 03/18/17 07:00] Pioglitazone HCl [Actos 15mg (*)] 15 mg PO DAILY 11/01/16 [Last Taken 03/18/17 07:00] Rivaroxaban [Xarelto 15mg (*)] 15 mg PO HS 11/01/16 [Last Taken 03/17/17 20:00] Cephalexin [Keflex (*)] 500 mg PO HS 03/18/17 [Last Taken 03/17/17 20:00] Cholecalciferol (Vitamin D3) [Vitamin D3] 5,000 unit PO BID 03/18/17 [Last Taken 03/18/17 07:00] Metoprolol Tartrate [Lopressor 100 mg (*)] 100 mg PO DAILY 03/18/17 [Last Taken 03/18/17 07:00] metFORMIN SR [Glucophage XR 500 mg (*)] 500 mg PO BID@,18 03/18/17 [Last Taken 03/18/17 07:00] levOFLOXACIN [levAQUIN (*)] 500 mg PO DAILY AT 10AM 3 Days #3 tab 03/21/17 [ Last Taken Unknown] Senior Living Antibiotics: Being d/c with levaquin 500 mg x 3 days, ceftin 250 po bid x 3 days. [facility] Antibiotic Stop Date: 03/24/17 Discharge Medications: Refer to the Discharge Home Medication list for PRN reason. - Orders Services needed: Home Care, Physical Therapy Home Care Face to Face: I certify that this patient was under my care and that I had the required [id number] encounter meeting the encounter requirements on the discharge day. My findings support the fact that the patient is homebound as defined in Home Care Face to Face Continued: [facility] Chapter 7 Medicare Benefits Manual 30.1.1 , The condition of the patient is such that there exists a normal inability to leave home and consequently, leaving home would require a considerable and taxing effort. Diet Recommendation: no restrictions on diet, ADA 2000 consistent carb Diet Texture: Regular Texture Diet - Follow Up Care Current Providers and Referrals: Gordon Ramos MD [Primary Care Provider] - 3-5 days (Has follow up appointment on Mar 27, 2017 at 10:[address] Ramos)
--- NOTE | 2017-03-21 11:14 | SOAPPROG ---
SOAP Progress Note Assessment/Plan: Assessment: 87 yo male admitted w/ elev wbc, mild pna and RLE cellulitis. Improved rapidly with levaquin, ancef. Energy is better and he would like to return home, PT feels he is able to do this. -Will send in levaquin to [facility] 500 mg po qd x 3 more days, ceftin 250 mg po bid x 3 days, then d/c and resume usual keflex qhs for chronic UTI suppression. -Will ask for home PT/home care to assist w/ strengthening and transition back to home. Lives w/ spouse, dtr in town for few days to help as well. -Needs to elevate legs better at home - family looking into getting Lazy Boy chair/recliner to help w/ this. Still w/ edema and mild erythema of RLE. Will have f/u in clinic next week - appt set for Mar 27. -DM - resume usual meds, needs new glucometer at home possibly - he will let us know if his is not working. -Ulcer on coccygeal area - need to change Depends more frequently, soft mattress , alleviate pressure on this area, HH being requested. -dispo - d/c home today. Pt to call if any ? or concerns. Plan: 03/21/17 11:09 Subjective: Feeling much better, strength greatly improved, denies sob, has been ambulating well w/ walker and PT. Objective: Vital Signs Temp Pulse Resp BP Pulse Ox 36.3 C 127 H 18 138/73 H 94 03/21/17 08:00 03/21/17 08:20 03/21/17 08:00 03/21/17 08:20 03/21/17 08:00 Laboratory Results 03/21/17 04:25 03/21/17 04:25 03/20/17 03/21/17 03/22/17 05:59 05:59 05:59 Intake Total 1250 300 Balance 1250 300 Gen: A&O, up in chair, spouse and dtr at bedside Heent: perr, has scabs on R ear (picks at them) NEck: soft, supple Chest: cta b no crackles appreciated CV: RR but has been intermittently tachy - better over last 24 hours ABD: soft nt nd EXT: RLE w/ 2+ edema to knee, mild erythema improved per notes from prior ICD10 Worksheet Patient Problems: Problems Problem Status Onset Atrial fibrillation and flutter Acute Orchitis Acute UTI (urinary tract infection) Acute Epididymitis Acute Pneumonia due to aerobic bacteria Acute Pneumonia Acute Cellulitis of right leg Acute Fever and chills Acute Sepsis Acute Cough Acute Chills Acute Malaise Acute
--- NOTE | 2017-03-21 12:29 | ASMTCMCOM ---
CM Note CM Note Notes: Spoke with pt and family, would like home PT. CM set up [facility], thinks they had him in the past. Rissa at [facility] notified. DC Plan: Home PT/ [facility] Date Signed: 03/21/2017 12:29 PM Electronically Signed By:Mary Huitron RN
--- NOTE | 2017-03-21 13:28 | GDS ---
[f rep st] DISCHARGE SUMMARY The patient is a pleasant 87-year-old male, who was in his usual state of health until , celebrated with his family but then woke up on morning feeling sudden onset of chills and shaking. He was somewhat nauseated, had vomited, was brought into the ER for evaluation and found to have an elevated white count and chest x-ray with a possible early pneumonia. He was feeling weaker and unable to feel safe at home. Decision was made to admit him. Also, he was noted to have a right lower extremity erythema and edema with a background history of venous stasis. He was admitted for possible pneumonia and right lower extremity cellulitis and was initially placed on ceftriaxone and azithromycin. This was then changed to Levaquin and Ancef. His white count improved rapidly. His energy increased. His oxygen requirements were normal. He worked with physical therapy and his energy level improved greatly back to near baseline. He was feeling well enough on 03/21 to want to go home. PT has cleared him and felt he is safe for that at home. He overall is greatly improved except for does have right lower extremity edema and has been holding his leg down in a chair without elevation. Of note he is anticoagulated with xarelto and is also on asa. PLAN: Will be to send him home with 3 more days of Levaquin 500 mg, Ceftin 250 mg twice daily x3 more days then he will stop these, then he will resume his usual Keflex for chronic UTI suppression in the evening. His family will look into getting a Lazy Boy recliner type chair to help elevate his legs better and home health care ordered with PT and [facility] to assist with his transition home. He will have a followup appointment with Dr. Ramos on March 27, 2017 but the family was instructed to call immediately if any questions or concerns or if he is not doing well. He is fairly fragile and does get quite sick very rapidly. His other usual medications will be continued at home. He has known diabetes and will be continued on metformin, Actos and Levemir. For his atrial fib/ atrial flutter, he will be continued on metoprolol, aspirin and Xarelto. For known CAD, he will continue on fish oil, niacin and aspirin. For UTI suppression, he will be continued on Keflex at bedtime after 3 days of finishing Ceftin. /[id number]/MODL MTDD
--- NOTE | 2017-03-22 17:38 | ASDISCHSUM ---
Discharge Information Plan Status:Home with Home Health Medically Cleared to Leave: Discharge Date:03/21/2017 12:50 PM CM D/C Disposition:Home Health Service ADT D/C Disposition:Home Health Service Projected Discharge Date:03/21/2017 11:00 AM Transportation at D/C:Family Discharge Delay Reason: Follow-Up Date:03/21/2017 11:00 AM Discharge Slot: Final Diagnosis: Placement Information Referral Type:*Home Health Care Services Referral ID:[id number] Provider Name:[facility] Address 1[address] Address 2: City:[place] Selection Factors: State:[place] Patient Contact Information Contact Name:ARGENTINA Relationship: Address:[address] Work Phone: City:[place] Alternate Phone: State/Zip Code:[place] [address] Email: Financial Information Financial Class:Medicare Advantage Plans Primary Plan Desc:[facility] [employer] Primary Plan Number:[id number] Secondary Plan Desc: Secondary Plan Number: Assessment Information LACE LACE Length of stay for Answers: Less than 1 day current admission Acuity / Level of Care Answers: Was the patient admitted to hospital via the emergency department? Yes: Emergency dept visits in Answers: 1 last 6 months Score: 4 Date Signed: 03/18/2017 12:36 PM Electronically Signed By:Wing Benitez LCSW [facility] CM Progress Note CM Note CM Note Notes: Patient admitted for chills/malaise, likely has mild PNA and possible RLE cellulitis. He is on Levaquin and Cephalexin. He lives independently with his and has a son in the area. His discharge needs are TBD, will await therapy evals and medication recommendations. CM will follow. Date Signed: 03/19/2017 11:21 AM Electronically Signed By:Subha Moya RN [facility] CM Progress Note CM Note CM Note Notes: Spoke with pt and family, would like home PT. CM set up [facility], thinks they had him in the past. Rissa at [facility] notified. DC Plan: Home PT/ [facility] Date Signed: 03/21/2017 12:29 PM Electronically Signed By:Mary Huitron RN Case Management Discharge Plan Note Case Management Discharge Discharge Order Complete? Answers: Yes Patient to Obtain Answers: via Family Medications Transportation Arranged Answers: Family/Friends Transport will Pick (Date 03/21/2017 12:00 AM & Time) Faxed Final Orders Answers: Yes Family Notified Answers: Yes Discharge Comments Notes: D/w DIRECTOR OF SUPPLY [employer], final orders faxed. Rissa at [facility] notified, ELLEN to leave report. Intervention Information
--- NOTE | 2017-03-26 14:47 | PQFORM ---
PHYSICIAN QUERY FORM Needs Your Response This query form is being sent to you to assure this patient record is coded properly. Please respond to the question below: A OPERATOR QUESTION: Dr. 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 Can this diagnosis be added to the discharge summary? __xx__yes ____no other Thank you, ANCA Streeter HIM Coding INSTRUCTIONS FOR RESPONSE: Answer question by clicking on the "Edit Document" button. Move cursor to area below the stars. When complete, hit "Save." Click on the "Sign" button, then click "Sign" again. Type in your PIN and hit "Enter." MTDD
== END 2017-03-21 12:50 | disposition home health service (06) | DRG 193 ==
LOC: EDUNIT# → OBSVTOIN 14:45 → F3E 15:48
PROVIDERS: ADMIT Internal Medicine; ATTEND Internal Medicine
DX: J18.9 Pneumonia, unspecified organism (principal); L03.115 Cellulitis of right lower limb; L89.153 Pressure ulcer of sacral region, stage 3; I87.8 Other specified disorders of veins; E11.9 Type 2 diabetes mellitus without complications; I48.91 Unspecified atrial fibrillation; I10 Essential (primary) hypertension; E78.00 Pure hypercholesterolemia, unspecified; Z79.01 Long term (current) use of anticoagulants; Z79.82 Long term (current) use of aspirin; Z79.84 Long term (current) use of oral hypoglycemic drugs
CPT/HCPCS: 97162-GP; 97165-GO; 97530-GP; 97535-GO; G8978-GP-CI; G8979-GP-CH; G8987-GO-CI; G8988-GO-CH; J0456; J0690; J0696; J1956

== ENCOUNTER 2017-05-22 10:28 | Inpatient (IN) | payer OTHER ==
[2017-05-22] MEDS ORDERED: cefTRIAXone 1 GM in STERILE WATER INJ 10 ML IV SCH (10:45)
--- NOTE | 2017-05-22 10:54 | GHP ---
[f rep st] HISTORY AND PHYSICAL DATE OF ADMISSION: 05/22/2017 HISTORY: The patient is an 87-year-old male who presents with fever, chills, and feeling bad. He has been hospitalized several times over the last year with sepsis from urinary tract infection, from a soft tissue staph infection, and from pneumonia. He was doing well for the last couple months. However, last night, he developed nightmares, interrupted sleep, and this morning awakened with chills. He presents to the office for evaluation. He is weak, feels tired. He denies chest pain. Denies shortness of breath. Denies abdominal pain. Denies any new urinary symptoms. PAST MEDICAL HISTORY: Significant for adult diabetes, bladder cancer, kidney stones, melanoma removed in 2007, prostate cancer, small abdominal aortic aneurysm, recurrent urinary infections, testicular hypofunction, previous bronchitis, and previous soft tissue abscess related to sepsis from an open wound from Mohs surgery. He also has recurrent skin cancers on his scalp. Has a history of atrial flutter, significantly elevated coronary calcium score, previous cellulitis of the right lower extremity, abscess of the left shoulder. CURRENT MEDICATIONS: Novofine 30-gauge needles; Levemir 40 units subcu once daily; fish oil 2000 mg omega-3 daily; Niaspan 1000 mg once daily; Xarelto 50 mg daily; Macrobid 100 mg daily; Metformin 500 mg twice daily; allopurinol 300 mg once daily; Actos 15 mg once daily; metoprolol 50 mg p.o. in the morning, 100 mg p.o. at bedtime; aspirin 81 mg daily; vitamin D3 5000 units once daily; Tylenol p.r.n. pain; milk of magnesia as needed for constipation; methylfolate 400 mcg once daily; and PreserVision once daily. PHYSICAL EXAM: GENERAL: Reveals an 87-year-old male who appears alert and oriented, although weak. VITAL SIGNS: Blood pressure 140/80. Weight is 186 pounds. Temperature is 101.2. Pulse was 102, regular. Respirations 16. Oxygen saturation was 89% on room air. He is alert, appears to be mildly dehydrated and weak. HEENT: Pupils are equal, reactive. Throat was normal. HEART: Has a regular rate and rhythm. LUNGS: Clear to auscultation with some decreased tubular breath sounds in his bases, but no rales or rhonchi. SKIN: Warm and dry. ABDOMEN: Nontender. EXTREMITIES: No significant edema. Full range of motion. IMPRESSION: Fever and rigors. History of pneumonia. History of sepsis. History of urosepsis. History of soft tissue abscess. Of interest, he was in the office on 23 of April, where inflammatory markers were rechecked and his C-reactive protein was normal at 7.1, and a sedimentation rate was normal at 7, and his white blood cell count was normal at 4300l and this was over a month after his previous infections. PLAN: Will admit. Will obtain blood cultures. Will get a chest x-ray and urine culture. Will empirically place on broad-spectrum antibiotics pending results of cultures. Will check sed rate and C-reactive protein. If these are elevated, will need to consider repeat CT scan looking for soft tissue abscesses. /[id number]/MODL and [id number], 05/22/17, [address] [facility]
--- NOTE | 2017-05-22 11:44 | CPEKG ---
Heart Rate: 89 RR Interval: 674 P-R Interval: 185 QRSD Interval: 86 QT Interval: 396 QTC Interval: 482 P Roxbury: 0 QRS Roxbury: 69 T Wave Roxbury: 33 EKG Severity - BORDERLINE ECG - EKG Impression: SINUS RHYTHM EKG Impression: ATRIAL PREMATURE COMPLEX EKG Impression: BORDERLINE PROLONGED QT INTERVAL Electronically Signed By: Donte Coleman 22-May-2017 16:40:53
[2017-05-22 12:54] LABS: PLATELET COUNT 134 10^3/uL (150-400)
[2017-05-22] MEDS ORDERED: ACETAMINOPHEN 325 MG TAB PO PRN (14:40)
[2017-05-22] MEDS ORDERED: NON-FORMULARY NEW DRUG (Cholecalciferol (Vitamin D3) [Vitamin D3] 5,000 UNIT) PO SCH (14:45)
[2017-05-22] MEDS ORDERED: FATTY ACIDS PO SCH (14:45)
[2017-05-22] MEDS ORDERED: OMEGA PO SCH (14:45)
[2017-05-22] MEDS: levOFLOXACIN 500 MG/DEXTROSE 100 ML IV SCH (14:45)
[2017-05-22] MEDS ORDERED: FISH OIL PO SCH (14:45)
[2017-05-22] MEDS: METOPROLOL TARTRATE 50 MG TAB PO SCH (15:43)
[2017-05-22] MEDS: ALLOPURINOL 300 MG TAB PO SCH (15:44)
[2017-05-22] MEDS: PRESERVISION AREDS2 FORMULA EYE VIT 1 EACH PO SCH ×2 (15:44→22:04)
[2017-05-22] MEDS: OMEGA-3 FATTY ACIDS 1,000 MG CAP PO SCH (22:03)
[2017-05-22] MEDS: RIVAROXABAN 15 MG TAB PO SCH (22:04)
[2017-05-22] MEDS: NIACIN ER 1000 MG TAB.ER PO SCH (22:04)
[2017-05-22] MEDS: CHOLECALCIFEROL VIT D3 2,000 UNITS TAB/CAP PO SCH (22:04)
[2017-05-22] MEDS: METOPROLOL TARTRATE 100 MG TAB PO SCH (22:04)
[2017-05-22] MEDS: ASPIRIN 81 MG CHEWABLE TAB PO SCH (22:06)
[2017-05-23 07:37] LABS: PLATELET COUNT 112 10^3/uL (150-400)
[2017-05-23] MEDS: levOFLOXACIN 500 MG/DEXTROSE 100 ML IV SCH (09:06)
[2017-05-23] MEDS: ALLOPURINOL 300 MG TAB PO SCH (09:08)
[2017-05-23] MEDS: OMEGA-3 FATTY ACIDS 1,000 MG CAP PO SCH ×2 (09:08→20:42)
[2017-05-23] MEDS: CHOLECALCIFEROL VIT D3 2,000 UNITS TAB/CAP PO SCH ×2 (09:08→20:43)
[2017-05-23] MEDS: PIOGLITAZONE HCL 15 MG TAB PO SCH (09:08)
[2017-05-23] MEDS: PRESERVISION AREDS2 FORMULA EYE VIT 1 EACH PO SCH ×2 (09:08→20:43)
[2017-05-23] MEDS: METOPROLOL TARTRATE 50 MG TAB PO SCH (09:08)
[2017-05-23] MEDS: Insulin Detemir [Levemir] 40 UNIT SQ SCH (09:08)
--- NOTE | 2017-05-23 12:15 | SOAPPROG ---
SOAP Progress Note Assessment/Plan: Assessment: Plan: 05/23/17 12:14 infection, suspect bacterial, no clear source yet. Urine and BC's pending. Fever and WBC better. Anticipate d/c home tomorrow if he remains to be stable Subjective: Feeling better today. No localizing symptoms. Objective: Vital Signs Temp Pulse Resp BP Pulse Ox 36.4 C 72 18 102/58 L 94 05/23/17 11:22 05/23/17 11:22 05/23/17 11:22 05/23/17 11:22 05/23/17 11:22 Microbiology 05/23/17 02:43 Respiratory Panel (PCR) - Final Nasal, Sinus - Eswab No Organism Detected Laboratory Results 05/23/17 07:25 05/23/17 07:25 05/22/17 05/23/17 05/24/17 05:59 05:59 05:59 Intake Total 550 Output Total 160 Balance 390 Gen: NAD, delightful HEENT: no acute findings Lungs: dry cough, CTAB Heart: rate controlled Abd + bs soft nt LE's trace RLE edema Skin: no acute concerns ICD10 Worksheet Patient Problems: Problems Problem Status Onset Atrial fibrillation and flutter Acute Cellulitis of right leg Acute Chills Acute Cough Acute Epididymitis Acute Fever and chills Acute Malaise Acute Orchitis Acute Pneumonia Acute Pneumonia due to aerobic bacteria Acute Sepsis Acute UTI (urinary tract infection) Acute
--- NOTE | 2017-05-23 12:42 | ASMTCMCOM ---
CM Note CM Note Notes: Met with pt to discuss DC needs. Pt has used [facility] in the past. Pt declined stating he feels strong enough to return home with no additional help. CM available if needs change, Date Signed: 05/23/2017 12:41 PM Electronically Signed By:Dayan Long LCSW
[2017-05-23] MEDS: ASPIRIN 81 MG CHEWABLE TAB PO SCH (20:43)
[2017-05-23] MEDS: RIVAROXABAN 15 MG TAB PO SCH (20:43)
[2017-05-23] MEDS: NIACIN ER 1000 MG TAB.ER PO SCH (20:43)
[2017-05-23] MEDS: METOPROLOL TARTRATE 100 MG TAB PO SCH (20:43)
[2017-05-24] MEDS: ALLOPURINOL 300 MG TAB PO SCH (09:20)
[2017-05-24] MEDS: CHOLECALCIFEROL VIT D3 2,000 UNITS TAB/CAP PO SCH ×2 (09:21→21:18)
[2017-05-24] MEDS: PRESERVISION AREDS2 FORMULA EYE VIT 1 EACH PO SCH ×2 (09:21→21:18)
[2017-05-24] MEDS: METOPROLOL TARTRATE 50 MG TAB PO SCH (09:23)
[2017-05-24] MEDS: OMEGA-3 FATTY ACIDS 1,000 MG CAP PO SCH ×2 (09:30→21:18)
[2017-05-24] MEDS: PIOGLITAZONE HCL 15 MG TAB PO SCH (09:30)
[2017-05-24] MEDS: Insulin Detemir [Levemir] 40 UNIT SQ SCH (09:31)
[2017-05-24] MEDS: levOFLOXACIN 500 MG/DEXTROSE 100 ML IV SCH (10:12)
--- NOTE | 2017-05-24 13:23 | ASMTCMCOM ---
CM Note CM Note Notes: Patient seen by therapies. No needs identified at present time. CM available should needs change. Date Signed: 05/24/2017 01:22 PM Electronically Signed By:No Ma RN
[2017-05-24] MEDS ORDERED: D50W 25 GM/50 ML SYR IVP PRN (17:43)
--- NOTE | 2017-05-24 18:09 | SOAPPROG ---
SOAP Progress Note Assessment/Plan: Assessment:Fever and leukoctosis of uncertain etiology. Improving. Plan: Continue current theapy. Home in the morning if stable. 05/24/17 18:08 Subjective: Doing better, still feels very weak. NO fever or chills. Objective: Vital Signs Temp Pulse Resp BP Pulse Ox 98.3 F 62 17 136/91 H 95 05/24/17 16:15 05/24/17 16:15 05/24/17 16:15 05/24/17 16:15 05/24/17 16:15 Laboratory Results 05/23/17 07:25 05/23/17 07:25 05/23/17 05/24/17 05/25/17 05:59 05:59 05:59 Intake Total 550 1500 Output Total 160 Balance 390 1500 Lungs clear. Cor with some mild iregularity, likely PVCs, tele is disconnected. No significant edema. Foot is mildly red but not painful or warm ICD10 Worksheet Patient Problems: Problems Problem Status Onset Atrial fibrillation and flutter Acute Cellulitis of right leg Acute Chills Acute Cough Acute Epididymitis Acute Fever and chills Acute Malaise Acute Orchitis Acute Pneumonia Acute Pneumonia due to aerobic bacteria Acute Sepsis Acute UTI (urinary tract infection) Acute
[2017-05-24] MEDS: FLUCONAZOLE 100 MG TAB PO SCH (18:41)
[2017-05-24] MEDS: INSULIN REGULAR HUMAN 100 UNIT/ML UNIT SC SCH ×2 (18:42→21:51)
[2017-05-24] MEDS ORDERED: INSULIN REGULAR HUMAN 100 UNIT/ML UNIT SC SCH (21:00)
[2017-05-24] MEDS: METOPROLOL TARTRATE 100 MG TAB PO SCH (21:17)
[2017-05-24] MEDS: NIACIN ER 1000 MG TAB.ER PO SCH (21:19)
[2017-05-24] MEDS: ASPIRIN 81 MG CHEWABLE TAB PO SCH (21:19)
[2017-05-24] MEDS: RIVAROXABAN 15 MG TAB PO SCH (21:51)
[2017-05-24 23:45] VITALS: RESP 16; TEMP 97.5
[2017-05-25 07:41] VITALS: BP 156/83; PULSE 73; O2SAT 94
[2017-05-25] MEDS: INSULIN REGULAR HUMAN 100 UNIT/ML UNIT SC SCH (07:49)
[2017-05-25] MEDS: levOFLOXACIN 500 MG/DEXTROSE 100 ML IV SCH (08:13)
[2017-05-25] MEDS: CHOLECALCIFEROL VIT D3 2,000 UNITS TAB/CAP PO SCH (08:13)
[2017-05-25] MEDS: METOPROLOL TARTRATE 50 MG TAB PO SCH (08:14)
[2017-05-25] MEDS: ALLOPURINOL 300 MG TAB PO SCH (08:14)
[2017-05-25] MEDS: PRESERVISION AREDS2 FORMULA EYE VIT 1 EACH PO SCH (08:14)
[2017-05-25] MEDS: PIOGLITAZONE HCL 15 MG TAB PO SCH (08:14)
[2017-05-25] MEDS: FLUCONAZOLE 100 MG TAB PO SCH (08:14)
[2017-05-25] MEDS: OMEGA-3 FATTY ACIDS 1,000 MG CAP PO SCH (08:14)
[2017-05-25] MEDS: Insulin Detemir [Levemir] 40 UNIT SQ SCH (08:15)
--- NOTE | 2017-05-25 10:11 | GDS ---
[f rep st] DISCHARGE SUMMARY ADMISSION DIAGNOSIS: Fever, leukocytosis. DISCHARGE DIAGNOSIS: Fever, leukocytosis, probable right foot cellulitis. PROCEDURES: IV antibiotics, blood cultures, urine cultures. COMPLICATIONS: None. HOSPITAL COURSE: The patient was admitted with a fever and a slightly swollen red right foot. Chest x-ray was unremarkable. Blood cultures were negative. Urine cultures grew rustam. However, I am no t certain but he may have a dose of antibiotics before the urine cultures were obtained. His fever d efervesced quickly. His white count returned towards normal. His oxygen saturation remained good. Hi s strength removed. He is being discharged to home. MEDICATIONS AT TIME OF DISCHARGE: Tylenol p.r.n., allopurinol 300 mg daily, aspirin 81 mg daily, vit mcknight D 5000 international units D3 daily, fluconazole 200 mg daily for 7 days, metoprolol 50 mg a.m./ 100 mg p.m., long-acting insulin 40 units subcutaneous daily, PreserVision 2, 1 b.i.d., Niaspan 1000 mg h.s., Arabi 3 fish oil 2000 mg b.i.d., pioglitazone 50 mg daily, Xarelto 50 mg daily. FOLLOWUP: Followup will be arranged in the office in 1 week. /[id number]/MODL
--- NOTE | 2017-05-25 10:11 | ASMTLACE ---
LACE Length of stay for Answers: 3 days current admission Acuity / Level of Answers: Yes Care: Did the patient have an inpatient admission? Comorbidities - select Answers: Diabetes (uncontrolled or all that apply controlled) Other Notes: Bladder cancer # of Emergency department Answers: 1-2 visits in the last 6 months Score: 9 Date Signed: 05/25/2017 10:10 AM Electronically Signed By:Stephanie Lee LCSW
== END 2017-05-25 10:52 | disposition home or self-care (01) | DRG 815 ==
LOC: F1N 10:52 → OBSVTOIN 10:52
PROVIDERS: ADMIT Internal Medicine; ATTEND Internal Medicine
DX: D72.829 Elevated white blood cell count, unspecified (principal); R50.9 Fever, unspecified; L03.115 Cellulitis of right lower limb; E11.9 Type 2 diabetes mellitus without complications; I48.92 Unspecified atrial flutter; Z79.4 Long term (current) use of insulin; Z87.440 Personal history of urinary (tract) infections; Z87.01 Personal history of pneumonia (recurrent); Z87.442 Personal history of urinary calculi; Z85.51 Personal history of malignant neoplasm of bladder; Z85.46 Personal history of malignant neoplasm of prostate
CPT/HCPCS: 97116-GP; 97161-GP; 97165-GO; G8978-GP-CI; G8979-GP-CI; G8980-GP-CI; G8987-GO-CI; G8988-GO-CI; J0696; J1815; J1956

== ENCOUNTER → 2017-11-11 | Outpatient (CLI) | payer OTHER | LOC: FIMAGING 10:11 | PROVIDERS: ATTEND Internal Medicine | DX: M25.551 Pain in right hip (principal); R26.9 Unspecified abnormalities of gait and mobility; Z96.641 Presence of right artificial hip joint | CPT/HCPCS: 78315; A9503 ==